=== PATIENT | female | born 1925 | race Hispanic/Latino ===

== ENCOUNTER 2016-07-01 12:56 | Inpatient (IN) | payer MEDICARE ==
[2016-07-01 12:56] VITALS: BMI 31.6
--- NOTE | 2016-07-01 13:19 | ED PDOC ---
Lower Extremity Pain/Injury Time Seen by Provider: 07/01/16 13:19 Chief Complaint (Nursing): Lower Extremity Problem/Injury Chief Complaint (Provider): knee pain History Per: Patient Additional Complaint(s): Patient states that she woke up this morning with pain to right leg and inability to walk. She called ambulance and was brought here for further evaluation. She denies acute fall or trauma today. Patient has history of multiple surgeries to right leg secondary to hip and femur fracture sustained last year. She was living in a rehabilitation facility after surgery but was discharged in September 2015 and has been living at home alone since then. Patient uses a walker at baseline and states this morning she tried to get up out of bed with her walker but was unable to put any weight on her right leg. Patient has had chronic pain since September of 2015 when she returned home after having surgical repair and rehab stay. She states, however, that the pain to right leg has been worse over the past 2 weeks. Patient did not take any medicine for pain relief. She denies any fever or chills. Patient also states she noticed 2 small blood blisters on her leg and she was concerned about possible blood clot. Patient states that Dr. aRmos performed fracture repair last year in this hospital. Past Medical History Reviewed: Historical Data, Nursing Documentation, Vital Signs Vital Signs: Last Vital Signs Temp 97 F L 07/01/16 12:58 Pulse 101 H 07/01/16 12:59 Resp 20 07/01/16 12:59 BP 160/100 H 07/01/16 12:59 Pulse Ox 99 07/01/16 12:59 - Medical History PMH: Arthritis, Bronchitis, CHF, COPD, HTN, Hypercholesterolemia, Peripheral Edema - Surgical History Surgical History: Appendectomy, Cholecystectomy Other surgeries: Right hip and femur fracture repair - Family History Family History: States: No Known Family Hx - Living Arrangements Living Arrangements: With Family - Social History Current smoker - smoking cessation education provided: No Alcohol: None Drugs: Denies - Home Medications Home Medications: Ambulatory Orders Medication Instructions Recorded No Known Home Med 07/01/16 - Allergies Allergies/Adverse Reactions: Allergies Allergy/AdvReac Type Severity Reaction Status Date / Time No Known Allergies Allergy Verified 07/01/16 12:58 Wells Criteria for PE - Wells Criteria for Pulmonary Embolism Clinical Signs and Symptoms of DVT: Yes P.E is #1 Diagnosis, or Equally Likely: No Heart Rate >100: No Immobilization at least 3 days;Surgery previous 4 weeks: No Previous, objectively diagnosed PE or DVT: No Hemoptysis: No Malignancy w/treatment within 6 months, or palliative: No Total Score: 3 Review of Systems ROS Statement: Except As Marked, All Systems Reviewed And Found Negative Constitutional: Negative for: Fever Cardiovascular: Negative for: Chest Pain Respiratory: Negative for: Shortness of Breath, SOB with Exertion Gastrointestinal: Negative for: Nausea, Vomiting Musculoskeletal: Positive for: Other (pain to right leg, cannot bear weight, denies acute fall or trauma) Neurological: Negative for: Headache, Dizziness Physical Exam - Reviewed Nursing Documentation Reviewed: Yes Vital Signs Reviewed: Yes - Physical Exam Skin: Negative for: Rash Eye Exam: Positive for: Normal appearance Cardiovascular/Chest: Positive for: Regular Rate, Rhythm Respiratory: Positive for: Normal Breath Sounds. Negative for: Respiratory Distress Extremity: Positive for: Other (decreased rom of right hip and knee, swelling noted to right femur and calf region, palpable DP pulse, normal distal sensation , chronic edema to left lower extremity) Neurologic/Psych: Positive for: Alert, Oriented - Laboratory Results Result Diagrams: 07/02/16 06:30 07/02/16 06:30 - ECG Interpretation Of Abn EKG: NSR 80 bpm, no acute finding, reviewed by PA and ED attending O2 Sat by Pulse Oximetry: 99 Pulse Ox Interpretation: Normal - Other Rad Doppler right leg X-Ray: Read By Radiologist X-Ray Interpretation: no DVT X-ray right hip, femur, knee, pelvis X-Ray: Interpreted by Me, Viewed By Me X-Ray Interpretation: hardware appears grossly aligned, no acute finding Bedside chest X-Ray: Interpreted by Me, Viewed By Me X-Ray Interpretation: no acute finding CT right leg X-Ray: Read By Radiologist X-Ray Interpretation: see below Medical Decision Making Medical Decision Makin89 year old female with right leg pain Plan: CBC CMP IV insertion PO tylenol X-rays right hip, femur, knee and pelvis Doppler right leg 4:00 pm: Patient's orthopedist is Dr. Ramos. Case discussed with Dr. Ramos who states to order CT of right femur and admit patient. 4:50 pm: BP elevated, patient states she used to take BP meds but has been off of her BP meds since September of 2015. Patient was medicated with 20 mg PO lisinopril and 12.5 mg PO HCTZ. 6:00 pm: PMD is Dr. Anaih Babb, case was discussed with Dr. Mays, family practice resident who will admit patient to Obs med/surg. CT: FINDINGS: Bones/joints: In the region of previously seen acute comminuted displaced fractures in the distal metadiaphysis of the femur, there has been likely additional bone graft placement and additional lateral plate and screw and cerclage wire fixation spanning the fracture. There is some bony callus formation surrounding the fracture site but the fracture still appears nonunited overall. Since the prior exam there is an mild medial displacement of the distal femur relative to the distal tip of the prosthesis. As previously seen, there is moderate to large knee joint effusion. Again there are postoperative changes of ORIF involving the right femur and right hip. No significant change in appearance the more proximal aspect of the right total hip arthroplasty component and surrounding bone changes. Stable diffuse osteopenia. Soft tissues: Unremarkable. IMPRESSION: 1. In the region of previously seen acute comminuted displaced fractures in the distal metadiaphysis of the femur, there has been likely additional bone graft placement and additional lateral plate and screw and cerclage wire fixation spanning the fracture. There is some bony callus formation surrounding the fracture site but the fracture still appears nonunited overall. Since the prior exam there is an mild medial displacement of the distal femur relative to the distal tip of the prosthesis. 2. As previously seen, there is moderate to large knee joint effusion. Disposition - Clinical Impression Clinical Impression: Hip pain, Inability to ambulate due to hip - Patient ED Disposition Is Patient to be Admitted: Yes - Disposition Disposition Time: 19:36 Condition: FAIR - Pt Status Changed To: Hospital Disposition Of: Inpatient - Admit Certification Admit to Inpatient:: After my assessment, the patient will require hospitalization for at least two midnights. This is because of the severity of symptoms shown, intensity of services needed, and/or the medical risk in this patient being treated as an outpatient. - POA Present On Arrival: None Results - Lab Results Lab Results: 07/01/16 07/01/16 07/01/16 15:36 14:19 14:19 WBC 8.3 RBC 4.42 Hgb 12.7 Hct 38.4 MCV 86.8 D MCH 28.6 MCHC 33.0 RDW 14.3 Plt Count 345 MPV 8.2 Neut % (Auto) 63.9 Lymph % (Auto) 24.7 Bacon % (Auto) 9.9 Eos % (Auto) 0.9 Baso % (Auto) 0.6 Neut # 5.3 Lymph # 2.1 Bacon # 0.8 Eos # 0.1 Baso # 0.1 Sodium 140 Potassium 4.4 Chloride 101 Carbon Dioxide 28 Anion Gap 15 BUN 20 H Creatinine 0.8 Est GFR ( Amer) > 60 Est GFR (Non-Af Amer) > 60 Random Glucose 97 Calcium 9.5 Total Bilirubin 0.8 AST 29 ALT 17 Alkaline Phosphatase 74 Total Protein 7.5 Albumin 3.9 Globulin 3.6 Albumin/Globulin Ratio 1.1 Urine Color Yellow Urine Clarity Clear Urine pH 7.0 Ur Specific [place] 1.011 Urine Protein Negative Urine Glucose (UA) Neg Urine Ketones Negative Urine Blood Small Urine Nitrate Negative Urine Bilirubin Negative Urine Urobilinogen 0.2-1.0 Ur Leukocyte Esterase Neg Urine RBC (Auto) 6 H Urine Microscopic WBC 1 Ur Squamous Epith Cells < 1
[2016-07-01 14:53] LABS: BASO # 0.1 K/uL (0.0-0.2); BASO % 0.6 % (0.0-2.0); EOS # 0.1 K/uL (0.0-0.7); EOS % 0.9 % (0.0-4.0); HEMATOCRIT 38.4 % (34.0-47.0); LYMPH # 2.1 K/uL (1.0-4.3); LYMPH % 24.7 % (20.0-40.0); MEAN CELL VOLUME 86.8 fl (81.0-99.0); MEAN CORPUSCULAR HEMOGLOBIN 28.6 pg (27.0-31.0); MEAN PLATELET VOLUME 8.2 fl (7.2-11.7); MONO # 0.8 K/uL (0.0-0.8); MONO % 9.9 % (0.0-10.0); NEUT # 5.3 K/uL (1.8-7.0); NEUT % 63.9 % (50.0-75.0); RED CELL DISTRIBUTION WIDTH 14.3 % (11.5-14.5); WHITE BLOOD COUNT 8.3 K/uL (4.8-10.8)
[2016-07-01 15:13] LABS: ALB/GLOB RATIO 1.1 (1.0-2.1); ALKALINE PHOSPHATASE 74 U/L (38-126); ALT/SGPT 17 U/L (9-52); AST/SGOT 29 U/L (14-36); BILIRUBIN,TOTAL 0.8 mg/dl (0.2-1.3); BLOOD UREA NITROGEN 20 mg/dl (7-17); CALCIUM 9.5 mg/dL (8.4-10.2); CARBON DIOXIDE 28 mmol/L (22-30); CHLORIDE 101 mmol/L (98-107); GFR AFRICAN-AMERICAN > 60; GLUCOSE,RANDOM 97 mg/dL (65-105); POTASSIUM 4.4 MMOL/L (3.6-5.0); SODIUM 140 mmol/l (132-148); TOTAL PROTEIN 7.5 G/DL (6.3-8.2)
--- NOTE | 2016-07-01 15:39 | US ---
PROCEDURE: Right lower extremity venous duplex Doppler. HISTORY: leg pain and swelling COMPARISON: None available. TECHNIQUE: Common femoral, superficial femoral, popliteal and posterior tibial veins were evaluated. Flow was assessed with color Doppler, compressibility, assessment of phasic flow and augmentation response. FINDINGS: COMMON FEMORAL VEIN: Unremarkable. SUPERFICIAL FEMORAL VEIN: Unremarkable. POPLITEAL VEIN: Unremarkable. POSTERIOR TIBIAL VEIN: Unremarkable. OTHER FINDINGS: None. IMPRESSION: No evidence of deep venous thrombosis in the right lower extremity.
[2016-07-01 16:50] LABS: RBC URINE 6 /hpf (0-3); URINE BILIRUBIN NEGATIVE (NEGATIVE); URINE BLOOD SMALL (NEGATIVE); URINE COLOR YELLOW (YELLOW); URINE GLUCOSE (UA) NEG (Normal); URINE KETONE NEGATIVE (NEGATIVE); URINE LEUKOCYTE ESTERASE NEG Leu/uL (Negative); URINE PROTEIN NEGATIVE (NEGATIVE); URINE UROBILINOGEN 0.2-1.0 mg/dL (0.2-1.0); WBC URINE 1 /hpf (0-5)
--- NOTE | 2016-07-01 16:56 | RAD ---
PROCEDURE: Right Hip Radiographs. HISTORY: pain COMPARISON: None. FINDINGS: BONES: Normal. No fractureStatus post bilateral total hip replacement. No evidence of osseous fracture. No evidence of prosthesis loosening. Distal aspect of femoral medullary component is not included in this examination. . JOINTS: As above SOFT TISSUES: Normal. OTHER FINDINGS: None. IMPRESSION: No evidence of acute fracture. Bilateral hip arthroplasty.
--- NOTE | 2016-07-01 17:15 | RAD ---
PROCEDURE: Right femur HISTORY: pain COMPARISON: 08/01/2015 TECHNIQUE: AP and lateral radiographs FINDINGS: There is suspected re- fracture of the distal femoral diaphysis versus nonunion of old fracture with angulation at the fracture site. The patient is status post ORIF of distal femoral fracture. Femoral intramedullary salvador noted. Buttressing plate noted in the distal femur with multiple screws and cerclage wires. No other acute fracture identified. . IMPRESSION: New fracture distal femur versus displacement at the level of the old distal femoral fracture. Extensive orthopedic hardware. . There is angulation at the fracture site and mild displacement.
--- NOTE | 2016-07-01 17:18 | RAD ---
PROCEDURE: Right Knee Radiographs. HISTORY: pain COMPARISON: 08/01/2015 FINDINGS: BONES: Suspected acute fracture at level of the previously repaired distal femoral diaphyseal fracture. This may represent nonunion. Angulation demonstrated on films of the femur on this same date not evident on this examination. Extensive orthopedic hardware. JOINTS: Medial osteoarthritis. JOINT EFFUSION: None. OTHER FINDINGS: None. IMPRESSION: Re- fracture distal femoral diaphysis versus nonunion old fracture. However, on films the right femur of the same date there is demonstration of some angulation and displacement not evident on prior examination.
--- NOTE | 2016-07-01 19:37 | CP.PCM.HP ---
History of Present Illness - History of Present Illness History of Present Illness: CC: right leg pain x 2 weeks 89 y/o F with Hx of HTN presenting with pain to right leg and inability to walk x 1 day secondary to pain. Pain to right leg has been progressively worsening for the past 2 weeks. Has taken aleve for mild pain relief at home. Patient has hx of multiple surgeries to right leg secondary to hip and femur fracture, right femur ORIF 2015 w/ Dr Dooley but has had poor follow up due to lack of proper transport.She was living in [facility] after surgery but was discharged in September 2015 and has been living at home alone since then. States ambulating with a walker for short distances around her house. Admits chronic pain since September of 2015 when she returned home after having surgical repair and rehab stay. Denies acute fall or trauma today, no f/c/n/v/d/cp/sob/ cough/abd pain/hematuria/hematochezia/ no parasthesias/no focal weakness PMD: none at present, used to see Dr. 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: IMPRESSION: 1. In the region of previously seen acute comminuted displaced fractures in the distal metadiaphysis of the femur, there has been likely additional bone graft placement and additional lateral plate and screw and cerclage wire fixation spanning the fracture. There is some bony callus formation surrounding the fracture site but the fracture still appears nonunited overall. Since the prior exam there is an mild medial displacement of the distal femur relative to the distal tip of the prosthesis. 2. As previously seen, there is moderate to large knee joint effusion. Present on Admission - Present on Admission Any Indicators Present on Admission: No Review of Systems - Review of Systems Review of Systems: see hpi Past Patient History - Infectious Disease Hx of Infectious Diseases: None - Past Medical History & Family History Past Medical History?: Yes - Past Social History Alcohol: None Drugs: Denies - CARDIAC Hx Congestive Heart Failure: Yes Hx Hypercholesterolemia: Yes Hx Hypertension: Yes Hx Peripheral Edema: Yes - PULMONARY Hx Bronchitis: Yes Hx Chronic Obstructive Pulmonary Disease (COPD): Yes - NEUROLOGICAL Hx Neurological Disorder: No - HEENT Hx HEENT Problems: No - RENAL Hx Chronic Kidney Disease: No - ENDOCRINE/METABOLIC Hx Hypothyroidism: No - HEMATOLOGICAL/ONCOLOGICAL Hx Blood Disorders: No - INTEGUMENTARY Hx Psoriasis: Yes - MUSCULOSKELETAL/RHEUMATOLOGICAL Hx Arthritis: Yes - GASTROINTESTINAL Hx Gastrointestinal Disorders: No - GENITOURINARY/GYNECOLOGICAL Hx Genitourinary Disorders: No - PSYCHIATRIC Hx Substance Use: No - SURGICAL HISTORY Hx Appendectomy: Yes Hx Cholecystectomy: Yes - ANESTHESIA Hx Anesthesia: Yes Hx Anesthesia Reactions: No Hx Malignant Hyperthermia: No Meds Allergies/Adverse Reactions: Allergies Allergy/AdvReac Type Severity Reaction Status Date / Time No Known Allergies Allergy Verified 07/01/16 12:58 Physical Exam - Constitutional Appears: No Acute Distress - Head Exam Head Exam: ATRAUMATIC - Eye Exam Eye Exam: EOMI Pupil Exam: PERRL - ENT Exam ENT Exam: Mucous Membranes Moist - Neck Exam Neck exam: Positive for: Full Rom. Negative for: Tenderness - Respiratory Exam Respiratory Exam: Clear to Auscultation Bilateral. absent: Rales, Rhonchi, Wheezes, Respiratory Distress - Cardiovascular Exam Cardiovascular Exam: +S1, +S2 - GI/Abdominal Exam GI & Abdominal Exam: Normal Bowel Sounds, Soft. absent: Tenderness - Extremities Exam Extremities exam: Positive for: pedal pulses present. Negative for: calf tenderness Additional comments: right leg: scar on femur from previous surgery, right lateral superfician serosanguinous blisters x 2, mild tenderness to palpation of right femur, right knee, limited ROM of knee joint, no tenderness to palpation of right hip. sensation intact throughtout right leg, ROM intact in right ankle and foot - Neurological Exam Neurological exam: Alert, Oriented x3 - Psychiatric Exam Psychiatric exam: Normal Affect, Normal Mood - Skin Skin Exam: Dry, Normal Color, Warm Results - Vital Signs Recent Vital Signs: Last Vital Signs Temp 97 F L 07/01/16 12:58 Pulse 83 07/01/16 18:05 Resp 20 07/01/16 18:05 BP 193/94 H 07/01/16 18:05 Pulse Ox 99 07/01/16 18:21 - Labs Result Diagrams: 07/01/16 14:19 07/01/16 14:19 Assessment & Plan - Assessment and Plan (Free Text) Plan: 89 y/o F with Hx of HTN presenting with pain to right leg and inability to walk x 1 day secondary to pain. Right leg pain 2/2 to non united femoral fx ED Course: CBC CMP X-rays right hip, femur, knee and pelvis Doppler right leg - WNL CT IMPRESSION: 1. In the region of previously seen acute comminuted displaced fractures in the distal metadiaphysis of the femur, there has been likely additional bone graft placement and additional lateral plate and screw and cerclage wire fixation spanning the fracture. There is some bony callus formation surrounding the fracture site but the fracture still appears nonunited overall. Since the prior exam there is an mild medial displacement of the distal femur relative to the distal tip of the prosthesis. 2. As previously seen, there is moderate to large knee joint effusion. admit to Med/surg pain control: morphine and toradol zofran for nausea Ortho consulted: Dr Dooley, to evaluate pt in AM labs in am: cbc, cmp, coags, type and screen HTN chronic, uncontrolled will restart previous home meds (last taken 2 years ago) 20 mg PO lisinopril and 12.5 mg PO HCTZ Ppx DVT - TEDS for now, patient may receive revision w/ ortho GI - pepcid while on toradol
[2016-07-01] MEDS: Sodium Chloride 0.9% 1,000 ML IV SCH (21:05)
[2016-07-02 06:59] LABS: ALB/GLOB RATIO 1.1 (1.0-2.1); ALKALINE PHOSPHATASE 62 U/L (38-126); ALT/SGPT 20 U/L (9-52); AST/SGOT 18 U/L (14-36); BILIRUBIN,TOTAL 0.9 mg/dl (0.2-1.3); BLOOD UREA NITROGEN 17 mg/dl (7-17); CARBON DIOXIDE 25 mmol/L (22-30); CHLORIDE 104 mmol/L (98-107); GFR AFRICAN-AMERICAN > 60; GLUCOSE,RANDOM 90 mg/dL (65-105); POTASSIUM 4.2 MMOL/L (3.6-5.0); SODIUM 137 mmol/l (132-148); TOTAL PROTEIN 6.6 G/DL (6.3-8.2)
[2016-07-02 07:04] LABS: HEMATOCRIT 36.5 % (34.0-47.0); MEAN CELL VOLUME 86.5 fl (81.0-99.0); MEAN CORPUSCULAR HEMOGLOBIN 28.5 pg (27.0-31.0); RED CELL DISTRIBUTION WIDTH 14.4 % (11.5-14.5); WHITE BLOOD COUNT 7.7 K/uL (4.8-10.8)
[2016-07-02 07:10] LABS: PARTIAL THROMBOPLASTIN TIME 28.3 SECONDS (23.3-32.5)
--- NOTE | 2016-07-02 09:12 | CT ---
PROCEDURE: Lower extremity CT HISTORY: assess femur and right hip, s/p fracture repair COMPARISON: July 01, 2016. Plain film radiographs 08/01/2015 postoperative radiographs right femur 07/04/2015 CT right lower extremity TECHNIQUE: 2.5 mm axial acquisition and display. Coronal and sagittal reconstructions. Dose report (mGy-cm): 900.61 FINDINGS: Non osseous union of previously surgically repaired comminuted distal right femoral fracture. Overall angulation the 2 components of the prosthesis not seen previously. Femoral acetabular components of the prosthesis proximally in satisfactory position. Incompletely visualize suprapatellar. IMPRESSION: Continued non osseous union of distal right 1st femoral fracture. Angulation of major fracture fragments and attached hardware not seen previously. Large suprapatellar effusion. Concordant results (preliminary interpretation) provided by [facility]. Procedure Completed: 17:11. Preliminary ([facility]) Report: Dictated and Authenticated: 18:29. Final Interpretation: 09:10. July 02, 2016.
[2016-07-02] MEDS: Sodium Chloride 0.9% 1,000 ML IV SCH (09:31)
--- NOTE | 2016-07-02 10:01 | RAD ---
HISTORY: Admission. COMPARISON: 09/12/2015. FINDINGS: LUNGS: No active pulmonary disease. PLEURA: No significant pleural effusion identified, no pneumothorax apparent. CARDIOVASCULAR: No radiographic findings to suggest acute or significant cardiovascular disease. OSSEOUS STRUCTURES: Severe degenerative changes right shoulder. Amanda Signed report VISUALIZED UPPER ABDOMEN: Normal. OTHER FINDINGS: None. IMPRESSION: No active disease. No significant interval change compared to the prior examination(s).
[2016-07-02] MEDS ORDERED: Enoxaparin 40 mg Syringe SC ONE (12:26)
[2016-07-02] MEDS: Oxycodone/Acetaminophen 5/325 mg Tab PO PRN (13:38)
--- NOTE | 2016-07-02 14:09 | CARD ---
APPROVED REPORT EKG Measurement Heart [id number] IN [id number] <Conclusion> Normal sinus rhythm Possible inferior infarct, age undetermined Possible anterior infarct, age undetermined Abnormal ECG
--- NOTE | 2016-07-02 17:07 | CP.PCM.PN ---
Subjective - Date & Time of Evaluation Date of Evaluation: 07/02/16 Time of Evaluation: 08:05 - Subjective Subjective: Patient was seen and examined at bedside this morning. Patient reports pain is well controlled with pain medications. Denies nausea, vomiting, chest pain, SOB , or other complains at this evaluation. Objective - Vital Signs/Intake and Output Vital Signs (last 24 hours): Temp Pulse Resp BP Pulse Ox 98.1 F 76 20 166/75 H 98 07/02/16 16:29 07/02/16 16:29 07/02/16 16:29 07/02/16 16:29 07/02/16 16:29 - Medications Medications: Current Medications Hydrochlorothiazide (Microzide) 12.5 mg PO DAILY COUNT INCLUDES THE [facility] Last Admin: 07/02/16 13:17 Dose: 12.5 mg Sodium Chloride (Sodium Chloride 0.9%) 1,000 mls @ 80 mls/hr IV .[id number] COUNT INCLUDES THE [facility] Stop: 07/02/16 20:10 Last Admin: 07/02/16 09:31 Dose: 80 mls/hr Lisinopril (Zestril) 20 mg PO DAILY COUNT INCLUDES THE [facility] Last Admin: 07/02/16 13:16 Dose: 20 mg Morphine Sulfate (Morphine) 2 mg IVP Q4 PRN PRN Reason: Pain, severe (8-10) Ondansetron HCl (Zofran Inj) 4 mg IVP Q6 PRN PRN Reason: Nausea/Vomiting Oxycodone/Acetaminophen (Percocet 5/325 Mg Tab) 1 tab PO Q4 PRN PRN Reason: Pain, moderate (4-7) Stop: 07/05/16 13:22 Last Admin: 07/02/16 13:38 Dose: 1 tab - Labs Labs: 07/02/16 06:30 07/02/16 06:30 PT 10.7 SECONDS (9.6-11.2) 07/02/16 06:30 INR 1.03 (0.92-1.08) 07/02/16 06:30 APTT 28.3 SECONDS (23.3-32.5) 07/02/16 06:30 - Constitutional Appears: Non-toxic, No Acute Distress - Eye Exam Eye Exam: Normal appearance - ENT Exam ENT Exam: Mucous Membranes Moist - Respiratory Exam Respiratory Exam: Clear to Ausculation Bilateral, NORMAL BREATHING PATTERN - Cardiovascular Exam Cardiovascular Exam: REGULAR RHYTHM, +S1, +S2 - GI/Abdominal Exam GI & Abdominal Exam: Soft, Normal Bowel Sounds. absent: Distended, Tenderness - Extremities Exam Extremities Exam: absent: Calf Tenderness Additional comments: Chronic edema of left lower extremity most likely lymphedema. Edema in right lower extremity. DP and PT pulses diminished bilateral. Right leg: scar on femur from previous surgery, , mild tenderness to palpation of right femur, right knee, limited ROM of knee joint, no tenderness to palpation of right hip. sensation intact throughtout right leg, ROM intact in right ankle and foot - Neurological Exam Neurological Exam: Alert, Awake, Oriented x3 - Skin Skin Exam: Dry, Intact, Normal Color - Additional Findings Additional findings: Mild tender to palpation of right thigh. Assessment and Plan - Assessment and Plan (Free Text) Assessment: 89 y/o F with Hx of HTN presenting with pain to right leg and inability to walk x 1 day secondary to pain, with mild medial displacement of the distal right femur on extremity CT, awaiting for surgical intervention by Ortho. . Plan: Right leg pain most likely secondary to new fracture vs displacement at level of old fracture -Orthopedic on board, Dr. Dooley, waiting for recommendations -Cardiology consulted appreciated for OR clearance -Patient is cleared from Medical standpoint to go to OR. -C/w pain management with Morphine and Percocet -CBC: H/H : stable on 12/36.5, WBC: WNL -CMP: WNL -Coagulation panel WNL -Heart healthy diet for dinner today -NPO after midnight for possible surgical intervention tomorrow -Lower extremity CT: Continued non osseous union of distal right 1st femoral fracture. Angulation of major fracture fragments and attached hardware not seen previously. Large suprapatellar effusion. -Femur X ray showed New fracture distal femur versus displacement at the level of the old distal femoral fracture. Extensive orthopedic hardware. . There is angulation at the fracture site and mild displacement. -Hip/Pelvis x dario showed : No evidence of acute fracture. Bilateral hip arthroplasty. -Doppler lower extremity showed no evidence of deep venous thrombosis in the right lower extremity. Uncontrolled Essential hypertension -Chronic, asymptomatic -Patient reports poor medication adherence -will restart previous home meds (last taken 2 years ago) - lisinopril 20 mg PO daily - HCTZ 12.5 mg PO daily -Heart healthy diet for dinner today -Continue monitoring -Consider written prescription for antihypertensives DVT prophylaxis -Lovenox 40 mg SC once today -Hold for tomorrow for possible surgical intervention
--- NOTE | 2016-07-02 17:21 | CP.PCM.PCO ---
Assessment/Plan - Assessment and Plan (Free Text) Assessment: I saw and evaluated the patient. I discussed the case with the resident and agree with the findings and plan as documented in the resident's note. Pt says she is going to OR in am . [facility].
--- NOTE | 2016-07-02 17:42 | CP.PCM.CON ---
History of Present Illness - History of Present Illness History of Present Illness: ID: 89 yo female qwell known to my practice CC: pain distal 1/3 R femur with evidence of change in overall limb alignment HPI- Pt well known to my practice- s/p ORIF complex pathologic(osteopenia) distal femur fx; Pt prenets with pain and restricted ROM R knee, with pain distal femur and evidence of deformity Pt admitted thru ER with dx of new fx distal 1/3 femur vs non union, incomplete healing distal 1/3 femur fx Past Patient History - Infectious Disease Hx of Infectious Diseases: None - Past Medical History & Family History Past Medical History?: Yes - Past Social History Alcohol: None Drugs: Denies - CARDIAC Hx Congestive Heart Failure: Yes Hx Hypercholesterolemia: Yes Hx Hypertension: Yes Hx Peripheral Edema: Yes - PULMONARY Hx Bronchitis: Yes Hx Chronic Obstructive Pulmonary Disease (COPD): Yes - NEUROLOGICAL Hx Neurological Disorder: No - HEENT Hx HEENT Problems: Yes Hx Deafness: Yes (slightly [place]) Other/Comment: cataract sx ou - RENAL Hx Chronic Kidney Disease: No - ENDOCRINE/METABOLIC Hx Hypothyroidism: No - HEMATOLOGICAL/ONCOLOGICAL Hx AIDS: No Hx Human Immunodeficiency Virus (HIV): No - INTEGUMENTARY Hx Psoriasis: Yes - MUSCULOSKELETAL/RHEUMATOLOGICAL Hx Arthritis: Yes - GASTROINTESTINAL Hx Gastrointestinal Disorders: No - GENITOURINARY/GYNECOLOGICAL Hx Genitourinary Disorders: No - PSYCHIATRIC Hx Substance Use: No - SURGICAL HISTORY Hx Appendectomy: Yes Hx Cholecystectomy: Yes - ANESTHESIA Hx Anesthesia: Yes Hx Anesthesia Reactions: No Hx Malignant Hyperthermia: No Meds Allergies/Adverse Reactions: Allergies Allergy/AdvReac Type Severity Reaction Status Date / Time No Known Allergies Allergy Verified 07/01/16 12:58 - Medications Medications: Current Medications Hydrochlorothiazide (Microzide) 12.5 mg PO DAILY [facility] Last Admin: 07/02/16 13:17 Dose: 12.5 mg Lisinopril (Zestril) 20 mg PO DAILY [facility] Last Admin: 07/02/16 13:16 Dose: 20 mg Morphine Sulfate (Morphine) 2 mg IVP Q4 PRN PRN Reason: Pain, severe (8-10) Ondansetron HCl (Zofran Inj) 4 mg IVP Q6 PRN PRN Reason: Nausea/Vomiting Oxycodone/Acetaminophen (Percocet 5/325 Mg Tab) 1 tab PO Q4 PRN PRN Reason: Pain, moderate (4-7) Stop: 07/05/16 13:22 Last Admin: 07/02/16 13:38 Dose: 1 tab Physical Exam - Neck Exam Neck exam: Positive for: Normal Inspection - Additional Findings Additional findings: Musculoskeltal Exam; stance/gait- defrred pt without immobilization of R lower ext pt requesting pain meds at time of encounter N/V intact + tenderness to palpation + swelling Results - Vital Signs Recent Vital Signs: Last Vital Signs Temp 98.1 F 07/02/16 16:29 Pulse 76 07/02/16 16:29 Resp 20 07/02/16 16:29 BP 166/75 H 07/02/16 16:29 Pulse Ox 98 07/02/16 16:29 - Labs Result Diagrams: 07/02/16 06:30 07/02/16 06:30 Labs: Laboratory Results - last 24 hr 07/02/16 07/02/16 07/02/16 06:30 06:30 06:30 WBC 7.7 RBC 4.22 Hgb 12.0 Hct 36.5 MCV 86.5 MCH 28.5 MCHC 33.0 RDW 14.4 Plt Count 324 PT 10.7 INR 1.03 APTT 28.3 Sodium 137 Potassium 4.2 Chloride 104 Carbon Dioxide 25 Anion Gap 13 BUN 17 Creatinine 0.7 Est GFR ( Amer) > 60 Est GFR (Non-Af Amer) > 60 Random Glucose 90 Calcium 9.0 Total Bilirubin 0.9 AST 18 ALT 20 Alkaline Phosphatase 62 Total Protein 6.6 Albumin 3.4 L Globulin 3.2 Albumin/Globulin Ratio 1.1 Blood Type Antibody Screen BBK History Checked 07/02/16 07:10 WBC RBC Hgb Hct MCV MCH MCHC RDW Plt Count PT INR APTT Sodium Potassium Chloride Carbon Dioxide Anion Gap BUN Creatinine Est GFR ( Amer) Est GFR (Non-Af Amer) Random Glucose Calcium Total Bilirubin AST ALT Alkaline Phosphatase Total Protein Albumin Globulin Albumin/Globulin Ratio Blood Type A POSITIVE Antibody Screen Negative BBK History Checked Patient has bt - Impressions Impression: Xrays- reveal evidence of comminuted /angulated distal 1/4 f3mur fx s/p ORIF vs Non union distal 1/[address] scan - reviewed and is coinfirmatory Assessment & Plan - Assessment and Plan (Free Text) Assessment: A- comminuted distal 1/3 femur fx with mild angulation vs Non union distal 1/3 femur fx P- situastion discused with granddaughter Daniella- possibility of ORIF and bone grafting discussed/ pt and her granddaughter considering same Orther option is bracing and essentially benign neglect
--- NOTE | 2016-07-03 10:31 | CP.PCM.CON ---
History of Present Illness - History of Present Illness History of Present Illness: 89 y/o F with Hx of HTN presenting with pain to right leg and inability to walk x 1 day secondary to pain. Pain to right leg has been progressively worsening for the past 2 weeks. Has taken aleve for mild pain relief at home. Patient has hx of multiple surgeries to right leg secondary to hip and femur fracture, right femur ORIF 2015 w/ Dr Dooley but has had poor follow up due to lack of proper transport. She was living in [facility] after surgery but was discharged in September 2015 and has been living at home alone since then. States ambulating with a walker for short distances around her house. Admits chronic pain since September of 2015 when she returned home after having surgical repair and rehab stay. Denies acute fall or trauma today, no f/c/n/v/d/cp/sob/cough/abd pain/hematuria /hematochezia/ no parasthesias/no focal weakness Pt is scheduled for surgery on right femur today She denies any PMH of cardiac disease other than Hypertension PMH: HTN, arthritis, hyperliidema, "blood clot on left leg" 30 years ago , SH: b/l hip replacement, right femur ORIF, hysterectomy,cholecystectomy, EKG: normal Labs : WNL Past Patient History - Infectious Disease Hx of Infectious Diseases: None - Past Medical History & Family History Past Medical History?: Yes - Past Social History Alcohol: None Drugs: Denies - CARDIAC Hx Congestive Heart Failure: No Hx Hypercholesterolemia: Yes Hx Hypertension: Yes Hx Peripheral Edema: Yes - PULMONARY Hx Bronchitis: No Hx Chronic Obstructive Pulmonary Disease (COPD): No - NEUROLOGICAL Hx Neurological Disorder: No - HEENT Hx HEENT Problems: Yes Hx Deafness: Yes (slightly [place]) Other/Comment: cataract sx ou - RENAL Hx Chronic Kidney Disease: No - ENDOCRINE/METABOLIC Hx Hypothyroidism: No - HEMATOLOGICAL/ONCOLOGICAL Hx AIDS: No Hx Human Immunodeficiency Virus (HIV): No - INTEGUMENTARY Hx Psoriasis: Yes - MUSCULOSKELETAL/RHEUMATOLOGICAL Hx Arthritis: Yes - GASTROINTESTINAL Hx Gastrointestinal Disorders: No - GENITOURINARY/GYNECOLOGICAL Hx Genitourinary Disorders: No - PSYCHIATRIC Hx Substance Use: No - SURGICAL HISTORY Hx Appendectomy: Yes Hx Cholecystectomy: Yes - ANESTHESIA Hx Anesthesia: Yes Hx Anesthesia Reactions: No Hx Malignant Hyperthermia: No Meds Allergies/Adverse Reactions: Allergies Allergy/AdvReac Type Severity Reaction Status Date / Time No Known Allergies Allergy Verified 07/01/16 12:58 - Medications Medications: Current Medications Hydrochlorothiazide (Microzide) 12.5 mg PO DAILY [facility] Last Admin: 07/03/16 08:30 Dose: 12.5 mg Lisinopril (Zestril) 20 mg PO DAILY [facility] Last Admin: 07/03/16 10:22 Dose: 20 mg Morphine Sulfate (Morphine) 2 mg IVP Q4 PRN PRN Reason: Pain, severe (8-10) Last Admin: 07/03/16 09:03 Dose: 2 mg Ondansetron HCl (Zofran Inj) 4 mg IVP Q6 PRN PRN Reason: Nausea/Vomiting Oxycodone/Acetaminophen (Percocet 5/325 Mg Tab) 1 tab PO Q4 PRN PRN Reason: Pain, moderate (4-7) Stop: 07/05/16 13:22 Last Admin: 07/02/16 13:38 Dose: 1 tab Physical Exam - Respiratory Exam Respiratory Exam: NORMAL BREATHING PATTERN - Cardiovascular Exam Cardiovascular Exam: REGULAR RHYTHM Results - Vital Signs Recent Vital Signs: Last Vital Signs Temp 97.8 F 07/03/16 08:05 Pulse 82 07/03/16 10:22 Resp 19 07/03/16 08:05 BP 163/79 H 07/03/16 10:22 Pulse Ox 98 07/03/16 08:05 - Labs Result Diagrams: 07/02/16 06:30 07/02/16 06:30 Assessment & Plan (1) Right femoral shaft fracture Assessment and Plan: The patient is cleared for surgery Status: Acute (2) Hyperlipidemia Status: Chronic (3) Hypertension Assessment and Plan: controlled with lisinopril as an out patient Status: Chronic
[2016-07-03] MEDS: Sodium Chloride 0.9% 500 ML IV SCH ×3 (12:49→20:05)
--- NOTE | 2016-07-03 16:19 | CP.PCM.PCO ---
Additional Comments - Additional Comments Additional Comments: 89 y/o F with Hx of HTN and history of ORIF of complex pathologic (osteoopenia) right distal femur fx presents with right leg pain and found to have on CT of the lower extremity of a non osseous union of distal right 1st femoral fracture. Angulation of major fracture fragments. Spoke to Dr. Ramos, orthopedic, who has arrange for out patient surgery on Jul 10 2016. Belen, Dr. Ramos's staff, is aware, confirm the date, and will contact patient for further arrangement. Pt and her son (Gautam) and her daughter in law (Madison) was inform of the surgery date on July 10 and contact information to Dr. Ramos staff was given ([phone]) to Madison. Gautam and Madison contact information: [phone] Plan: Pt is placed on heart health diet and awaiting PT evaluation.
--- NOTE | 2016-07-03 19:09 | CP.PCM.PN ---
Subjective - Date & Time of Evaluation Date of Evaluation: 07/03/16 Time of Evaluation: 07:05 - Subjective Subjective: Patient was seen and examined at bedside this morning. Patient denies pain at this evaluation. Patient had an uneventful night. Denies chest pain, SOB, nausea , vomiting, abdominal pain or other complains at this morning assessment. Objective - Vital Signs/Intake and Output Vital Signs (last 24 hours): Temp Pulse Resp BP Pulse Ox 98.4 F 79 18 159/66 H 96 07/03/16 16:45 07/03/16 16:45 07/03/16 16:45 07/03/16 16:45 07/03/16 16:45 - Medications Medications: Current Medications Hydrochlorothiazide (Microzide) 12.5 mg PO DAILY [facility] Last Admin: 07/03/16 08:30 Dose: 12.5 mg Sodium Chloride (Sodium Chloride 0.9%) 500 mls @ 125 mls/hr IV .Q4H [facility] Last Admin: 07/03/16 16:39 Dose: Not Given Lisinopril (Zestril) 20 mg PO DAILY [facility] Last Admin: 07/03/16 10:22 Dose: 20 mg Morphine Sulfate (Morphine) 2 mg IVP Q4 PRN PRN Reason: Pain, severe (8-10) Last Admin: 07/03/16 09:03 Dose: 2 mg Ondansetron HCl (Zofran Inj) 4 mg IVP Q6 PRN PRN Reason: Nausea/Vomiting Oxycodone/Acetaminophen (Percocet 5/325 Mg Tab) 1 tab PO Q4 PRN PRN Reason: Pain, moderate (4-7) Stop: 07/05/16 13:22 Last Admin: 07/02/16 13:38 Dose: 1 tab - Labs Labs: 07/02/16 06:30 07/02/16 06:30 PT 10.7 SECONDS (9.6-11.2) 07/02/16 06:30 INR 1.03 (0.92-1.08) 07/02/16 06:30 APTT 28.3 SECONDS (23.3-32.5) 07/02/16 06:30 - Constitutional Appears: Non-toxic, No Acute Distress - ENT Exam ENT Exam: Mucous Membranes Moist - Respiratory Exam Respiratory Exam: Clear to Ausculation Bilateral, NORMAL BREATHING PATTERN - Cardiovascular Exam Cardiovascular Exam: REGULAR RHYTHM, +S1, +S2 - GI/Abdominal Exam GI & Abdominal Exam: Soft, Normal Bowel Sounds. absent: Distended, Tenderness - Extremities Exam Extremities Exam: absent: Calf Tenderness Additional comments: Chronic edema of left lower extremity most likely lymphedema. Edema in right lower extremity. DP and PT pulses diminished bilateral. Right leg: scar on femur from previous surgery, , mild tenderness to palpation of right femur, right knee, limited ROM of knee joint, no tenderness to palpation of right hip. sensation intact throughtout right leg, ROM intact in right ankle and foot - Neurological Exam Neurological Exam: Alert, Awake, Oriented x3 - Skin Skin Exam: Dry, Intact, Normal Color Assessment and Plan - Assessment and Plan (Free Text) Assessment: 89 y/o F with Hx of HTN presenting with pain to right leg and inability to walk x 1 day secondary to pain, with mild medial displacement of the distal right femur on extremity CT, awaiting for surgical intervention by Ortho. . Plan: Right leg pain most likely secondary to new fracture vs displacement at level of old fracture -Orthopedic on board, Dr. Dooley, waiting for recommendations -Cardiology consulted appreciated for OR clearance -Patient is cleared from Medical standpoint to go to OR. -C/w pain management with Morphine and Percocet -CBC: H/H : stable on 12/36.5, WBC: WNL -CMP: WNL -Coagulation panel WNL -Heart healthy diet for dinner today -NPO after midnight for possible surgical intervention -Lower extremity CT: Continued non osseous union of distal right 1st femoral fracture. Angulation of major fracture fragments and attached hardware not seen previously. Large suprapatellar effusion. -Femur X ray showed New fracture distal femur versus displacement at the level of the old distal femoral fracture. Extensive orthopedic hardware. . There is angulation at the fracture site and mild displacement. -Hip/Pelvis x dario showed : No evidence of acute fracture. Bilateral hip arthroplasty. -Doppler lower extremity showed no evidence of deep venous thrombosis in the right lower extremity. Uncontrolled Essential hypertension -Chronic, asymptomatic -Patient reports poor medication adherence -will restart previous home meds (last taken 2 years ago) - lisinopril 20 mg PO daily - HCTZ 12.5 mg PO daily -Heart healthy diet for dinner today -Continue monitoring -Consider written prescription for antihypertensives DVT prophylaxis -Held Lovenox 40 mg SC -Patient for possible OR today
[2016-07-04] MEDS: Sodium Chloride 0.9% 500 ML IV SCH ×2 (00:40→11:54)
[2016-07-04 08:32] VITALS: BP 139/74; RESP 20; TEMP 97.9; O2SAT 98
[2016-07-04 10:04] VITALS: PULSE 72
--- NOTE | 2016-07-04 10:50 | PQF GENQUE ---
This form is a permanent part of the medical record 07/04/16 Dr. Chris Weber, Please clarify if this patient has a history of CHF or not. If yes please clarify the TYPE. In the H&P under the PMH template there is documentation of YES next to CHF. Medications include Zestril and HCTZ Clarification of your documentation is requested to better reflect the severity of illness and intensity of treatment of your patient. PHYSICIAN'S RESPONSE Based on your medical judgment of the clinical indicators outlined above please clarify the following: [] Practitioner response [] If unable to determine, please check the box, sign and date. Present On Admission (POA) Indicator: [] Present at the time of admission [] Not present at the time of admission [] Clinically Undetermined In responding to this query, please exercise your independent professional judgment. The fact that a question is asked does not imply that any particular answer is desired or expected. Thank you for your clarification on this documentation. If you have any questions please call:[phone] * Thank you, Nataly Thao RN [facility]
[2016-07-04] MEDS: Oxycodone/Acetaminophen 5/325 mg Tab PO PRN (10:56)
--- NOTE | 2016-07-04 16:17 | CP.PCM.DIS ---
Provider - Provider Date of Admission: 07/01/16 18:30 Attending physician: Izabella Padilla MD Time Spent in preparation of Discharge (in minutes): 30 Diagnosis - Discharge Diagnosis (1) Hypertension Status: Chronic Priority: Medium Comment: Controlled with home medications. (2) Femur fracture, right Status: Acute Priority: High Comment: Stable. Scheduled surgery by Dr. Ramos, Orthopedic on June,. Hospital Course - Lab Results Lab Results: Most Recent Lab Values WBC 7.7 K/uL (4.8-10.8) 07/02/16 06:30 RBC 4.22 Mil/uL (3.80-5.20) 07/02/16 06:30 Hgb 12.0 g/dL (12.0-16.0) 07/02/16 06:30 Hct 36.5 % (34.0-47.0) 07/02/16 06:30 MCV 86.5 fl (81.0-99.0) 07/02/16 06:30 MCH 28.5 pg (27.0-31.0) 07/02/16 06:30 MCHC 33.0 g/dL (33.0-37.0) 07/02/16 06:30 RDW 14.4 % (11.5-14.5) 07/02/16 06:30 Plt Count 324 K/uL (130-400) 07/02/16 06:30 MPV 8.2 fl (7.2-11.7) 07/01/16 14:19 Neut % (Auto) 63.9 % (50.0-75.0) 07/01/16 14:19 Lymph % (Auto) 24.7 % (20.0-40.0) 07/01/16 14:19 [place] % (Auto) 9.9 % (0.0-10.0) 07/01/16 14:19 Eos % (Auto) 0.9 % (0.0-4.0) 07/01/16 14:19 Baso % (Auto) 0.6 % (0.0-2.0) 07/01/16 14:19 Neut # 5.3 K/uL (1.8-7.0) 07/01/16 14:19 Lymph # 2.1 K/uL (1.0-4.3) 07/01/16 14:19 [place] # 0.8 K/uL (0.0-0.8) 07/01/16 14:19 Eos # 0.1 K/uL (0.0-0.7) 07/01/16 14:19 Baso # 0.1 K/uL (0.0-0.2) 07/01/16 14:19 PT 10.7 SECONDS (9.6-11.2) 07/02/16 06:30 INR 1.03 (0.92-1.08) 07/02/16 06:30 APTT 28.3 SECONDS (23.3-32.5) 07/02/16 06:30 Sodium 137 mmol/l (132-148) 07/02/16 06:30 Potassium 4.2 MMOL/L (3.6-5.0) 07/02/16 06:30 Chloride 104 mmol/L (98-107) 07/02/16 06:30 Carbon Dioxide 25 mmol/L (22-30) 07/02/16 06:30 Anion Gap 13 (10-20) 07/02/16 06:30 BUN 17 mg/dl (7-17) 07/02/16 06:30 Creatinine 0.7 mg/dL (0.7-1.2) 07/02/16 06:30 Est GFR ( Amer) > 60 07/02/16 06:30 Est GFR (Non-Af Amer) > 60 07/02/16 06:30 Random Glucose 90 mg/dL (65-105) 07/02/16 06:30 Calcium 9.0 mg/dL (8.4-10.2) 07/02/16 06:30 Total Bilirubin 0.9 mg/dl (0.2-1.3) 07/02/16 06:30 AST 18 U/L (14-36) 07/02/16 06:30 ALT 20 U/L (9-52) 07/02/16 06:30 Alkaline Phosphatase 62 U/L (38-126) 07/02/16 06:30 Total Protein 6.6 G/DL (6.3-8.2) 07/02/16 06:30 Albumin 3.4 g/dL (3.5-5.0) L 07/02/16 06:30 Globulin 3.2 gm/dL (2.2-3.9) 07/02/16 06:30 Albumin/Globulin Ratio 1.1 (1.0-2.1) 07/02/16 06:30 Urine Color Yellow (YELLOW) 07/01/16 15:36 Urine Clarity Clear (Clear) 07/01/16 15:36 Urine pH 7.0 (5.0-8.0) 07/01/16 15:36 Ur Specific [place] 1.011 (1.003-1.030) 07/01/16 15:36 Urine Protein Negative mg/dL (NEGATIVE) 07/01/16 15:36 Urine Glucose (UA) Neg mg/dL (Normal) 07/01/16 15:36 Urine Ketones Negative mg/dL (NEGATIVE) 07/01/16 15:36 Urine Blood Small (NEGATIVE) 07/01/16 15:36 Urine Nitrate Negative (NEGATIVE) 07/01/16 15:36 Urine Bilirubin Negative (NEGATIVE) 07/01/16 15:36 Urine Urobilinogen 0.2-1.0 mg/dL (0.2-1.0) 07/01/16 15:36 Ur Leukocyte Esterase Neg Jeanine/uL (Negative) 07/01/16 15:36 Urine RBC (Auto) 6 /hpf (0-3) H 07/01/16 15:36 Urine Microscopic WBC 1 /hpf (0-5) 07/01/16 15:36 Ur Squamous Epith Cells < 1 /hpf (0-5) 07/01/16 15:36 Blood Type A POSITIVE 07/02/16 07:10 Antibody Screen Negative 07/02/16 07:10 BBK History Checked Patient has bt 07/02/16 07:10 - Hospital Course Hospital Course: This is a 89 y/o Female with Hx of HTN, Bilateral Hip replacement, and right femur fractore s/o ORIF on 2015 who presented to ED complaining of right leg pain and inability to walk for one day secondary to pain admitted with diagnosis of new fracture distal 1/3 femur versus non union, incomplete healing distal 1/3 femur fracture and possible surgical repair. During admission patient's current clinical condition was managed with pain control medications and her home antihypertensives were reassumed. CBC, CMP and coagulation panel were WNL.Dr. Ramos, Orthopedic, was consulted, and who arranged for surgery on Jul 10 2016 with patient's consent. Patient was evaluated by physical therapist and recommendations for TCU rehabilitation were given. Patient was seen and examined at bedside this morning. Patient reports pain is well control with pain medications, and denies any complains at this evaluation. Patient stable to be transfer to TCU on home medications and pain management. TCU medications: Same medication regimen as when in [facility] - Date & Time of H&P Date of H&P: 07/01/16 Time of H&P: 19:15 Discharge Exam - Eye Exam Eye Exam: Normal appearance - ENT Exam ENT Exam: Mucous Membranes Moist - Respiratory Exam Respiratory Exam: Clear to PA & Lateral, NORMAL BREATHING PATTERN - Cardiovascular Exam Cardiovascular Exam: REGULAR RHYTHM, +S1, +S2 - GI/Abdominal Exam GI & Abdominal Exam: Normal Bowel Sounds, Soft. absent: Distended, Rigid, Tenderness - Extremities Exam Additional comments: Chronic edema of left lower extremity most likely lymphedema. Edema in right lower extremity. DP and PT pulses diminished bilateral. Right leg: scar on femur from previous surgery, , mild tenderness to palpation of right femur, right knee, limited ROM of knee joint, no tenderness to palpation of right hip. sensation intact throughtout right leg, ROM intact in right ankle and foot - Neurological Exam Neurological exam: Alert, Oriented x3 - Psychiatric Exam Psychiatric exam: Normal Affect, Normal Mood - Skin Skin Exam: Dry, Intact, Normal Color Discharge Plan - Discharge Medications Prescriptions: Sennosides A and B [Senokot Tab] 8.6 mg PO HS #30 tab - Follow Up Plan Condition: STABLE Disposition: REHAB FACILITY/REHAB UNIT Instructions: Hip Fracture (GEN), Hip Pain (GEN)
== END 2016-07-04 15:45 | DRG 566 ==
LOC: H.ER 12:56 → H.ERHOLD 18:30 → H.MEDSURG1 21:50
PROVIDERS: ADMIT Family Medicine Geriatric Medicine; ATTEND Family Medicine Geriatric Medicine
DX: M84.451K Pathological fracture, right femur, subsequent encounter for fracture with nonunion (principal); J44.9 Chronic obstructive pulmonary disease, unspecified; E78.00 Pure hypercholesterolemia, unspecified; I10 Essential (primary) hypertension; E78.5 Hyperlipidemia, unspecified; Z90.49 Acquired absence of other specified parts of digestive tract; Z96.643 Presence of artificial hip joint, bilateral; X58.XXXA Exposure to other specified factors, initial encounter; Y93.9 Activity, unspecified; Y92.9 Unspecified place or not applicable; Y99.9 Unspecified external cause status; G89.29 Other chronic pain

== ENCOUNTER 2016-07-04 14:11 | Inpatient (IN) | payer OTHER ==
[2016-07-04 15:21] VITALS: BMI 29.2
[2016-07-04] MEDS ORDERED: Oxycodone/Acetaminophen 5/325 mg Tab PO PRN (15:38)
[2016-07-04 16:51] VITALS: RESP 20
--- NOTE | 2016-07-05 13:45 | CP.PCM.HP ---
History of Present Illness - History of Present Illness History of Present Illness: CC: 89 y/o F with Hx of HTN presenting with pain to right leg and inability to walk x 1 day secondary to pain. Pain to right leg has been progressively worsening for the past 2 weeks. Has taken aleve for mild pain relief at home. Patient has hx of multiple surgeries to right leg secondary to hip and femur fracture, right femur ORIF 2015 w/ Dr Dooley but has had poor follow up due to lack of proper transport. She was living in [facility] after surgery but was discharged in September 2015 and has been living at home alone since then. States ambulating with a walker for short distances around her house. Admits chronic pain since September of 2015 when she returned home after having surgical repair and rehab stay. Denies acute fall or trauma today, no f/c/n/v/d/cp/sob/cough/ abd pain/hematuria/hematochezia/ no parasthesias/no focal weakness. 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 Angulation of major fracture fragments. and admitted to med/surg with orthopedic consult Dr. Ramos. Spoke to Dr. Ramos, orthopedic, who has arrange for out patient surgery on Jul 10 2016. Belen, Dr. Ramos's staff, is aware, confirm the date, and will contact patient for further arrangement. Pt and her son (Gautam) and her daughter in law (Madison) was inform of the surgery date on July 10 [address] contact information to Dr. Ramos staff was given ([phone]) to Madison. Currently transfer to TCU for acute rehab. Awaiting OR. PMD: none at present, used to see Dr. 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, no transportation Denies tobacco, alcohol, and illicit drug use Son and daughter in law Shaina: [phone] Present on Admission - Present on Admission Any Indicators Present on Admission: No Review of Systems - Review of Systems Review of Systems: as per hpi Past Patient History - Infectious Disease Hx of Infectious Diseases: None - Past Medical History & Family History Past Medical History?: Yes - Past Social History Smoking Status: Former Smoker - CARDIAC Hx Congestive Heart Failure: No Hx Hypercholesterolemia: Yes Hx Hypertension: Yes Hx Peripheral Edema: Yes - PULMONARY Hx Bronchitis: No Hx Chronic Obstructive Pulmonary Disease (COPD): No - NEUROLOGICAL Hx Neurological Disorder: No - HEENT Hx HEENT Problems: Yes Hx Deafness: Yes (slightly ramona) Other/Comment: cataract sx ou - RENAL Hx Chronic Kidney Disease: No - ENDOCRINE/METABOLIC Hx Hypothyroidism: No - HEMATOLOGICAL/ONCOLOGICAL Hx AIDS: No Hx Human Immunodeficiency Virus (HIV): No - INTEGUMENTARY Hx Psoriasis: Yes - MUSCULOSKELETAL/RHEUMATOLOGICAL Hx Falls: No - GASTROINTESTINAL Hx Gastrointestinal Disorders: No - GENITOURINARY/GYNECOLOGICAL Hx Genitourinary Disorders: No - PSYCHIATRIC Hx Substance Use: No - SURGICAL HISTORY Hx Appendectomy: Yes Hx Cholecystectomy: Yes Hx Hysterectomy: Yes - ANESTHESIA Hx Anesthesia: Yes Hx Anesthesia Reactions: No Hx Malignant Hyperthermia: No Has any member of the family had a problem w/ anesthesia?: No Meds Allergies/Adverse Reactions: Allergies Allergy/AdvReac Type Severity Reaction Status Date / Time No Known Allergies Allergy Verified 07/01/16 12:58 Physical Exam - Constitutional Appears: No Acute Distress - Head Exam Head Exam: NORMAL INSPECTION - Eye Exam Eye Exam: EOMI, Normal appearance - ENT Exam ENT Exam: Mucous Membranes Moist - Neck Exam Neck exam: Positive for: Full Rom - Respiratory Exam Respiratory Exam: Clear to Auscultation Bilateral - Cardiovascular Exam Cardiovascular Exam: REGULAR RHYTHM, +S1, +S2 - GI/Abdominal Exam GI & Abdominal Exam: Normal Bowel Sounds, Soft. absent: Distended, Guarding, Rigid, Tenderness - Extremities Exam Extremities exam: Positive for: normal capillary refill. Negative for: calf tenderness, joint swelling Additional comments: right lower extermity decrease in motor and strenth secondary to pain. healing scar noted on upper lateral right thigh. no swelling/redness of the right thigh. - Neurological Exam Neurological exam: Alert, CN II-XII Intact, Oriented x3 - Psychiatric Exam Psychiatric exam: Normal Affect, Normal Mood - Skin Skin Exam: Normal Color, Warm Additional comments: healing scar on right later upper thigh Results - Vital Signs Recent Vital Signs: Last Vital Signs Temp 97.3 F L 07/05/16 08:11 Pulse 76 07/05/16 08:45 Resp 20 07/05/16 08:11 BP 156/77 H 07/05/16 08:45 Pulse Ox 99 07/05/16 08:11 Assessment & Plan - Assessment and Plan (Free Text) Assessment: 89 y/o F with Hx of HTN presenting with pain to right leg and inability to walk x 1 day secondary to pain, with mild medial displacement of the distal right femur on extremity CT, awaiting for surgical intervention by Ortho. Plan: Right leg pain most likely secondary to new fracture vs displacement at level of old fracture -Orthopedic on board, Dr. 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 Angulation of major fracture fragments and attached hardware not seen previously. Large suprapatellar effusion. -Femur X ray showed New fracture distal femur versus displacement at the level of the old distal femoral fracture. Extensive orthopedic hardware. . There is angulation at the fracture site and mild displacement. -Hip/Pelvis x dario showed : No evidence of acute fracture. Bilateral hip arthroplasty. -Doppler lower extremity showed no evidence of deep venous thrombosis in the right lower extremity. -continue with physical therapy and pain medication tylenol and perocet 1 tab po q6 prn Uncontrolled Essential hypertension -Chronic, asymptomatic -c/w lisinopril 20 mg PO daily and HCTZ 12.5 mg PO daily -Heart healthy diet for dinner today -Continue monitoring DVT prophylaxis -scd Decision To Admit - . Bed Request Type: Transitional Care Unit Admitting Physician: Izabella Padilla
[2016-07-05] MEDS ORDERED: Oxycodone/Acetaminophen 5/325 mg Tab PO PRN (13:54)
--- NOTE | 2016-07-07 11:49 | CP.PCM.CON ---
History of Present Illness - History of Present Illness History of Present Illness: Pre Op Clearance 89 y/o F with Hx of HTN presenting with pain to right leg and inability to walk x 1 day secondary to pain. Pain to right leg has been progressively worsening for the past 2 weeks. Has taken aleve for mild pain relief at home. Patient has hx of multiple surgeries to right leg secondary to hip and femur fracture, right femur ORIF 2015 w/ Dr Dooley but has had poor follow up due to lack of proper transport. She was living in [facility] after surgery but was discharged in September 2015 and has been living at home alone since then. States ambulating with a walker for short distances around her house. Admits chronic pain since September of 2015 when she returned home after having surgical repair and rehab stay. Denies acute fall or trauma today, no f/c/n/v/d/cp/sob/cough/abd pain/hematuria /hematochezia/ no parasthesias/no focal weakness Pt is scheduled for surgery on right femur 07/10 She denies any PMH of cardiac disease other than Hypertension PMH: HTN, arthritis, hyperliidema, "blood clot on left leg" 30 years ago , SH: b/l hip replacement, right femur ORIF, hysterectomy,cholecystectomy, EKG: normal Labs : WNL Past Patient History - Infectious Disease Hx of Infectious Diseases: None - Past Medical History & Family History Past Medical History?: Yes - Past Social History Smoking Status: Former Smoker - CARDIAC Hx Congestive Heart Failure: No Hx Hypercholesterolemia: Yes Hx Hypertension: Yes Hx Peripheral Edema: Yes - PULMONARY Hx Bronchitis: No Hx Chronic Obstructive Pulmonary Disease (COPD): No - NEUROLOGICAL Hx Neurological Disorder: No - HEENT Hx HEENT Problems: Yes Hx Deafness: Yes (slightly [place]) Other/Comment: cataract sx ou - RENAL Hx Chronic Kidney Disease: No - ENDOCRINE/METABOLIC Hx Hypothyroidism: No - HEMATOLOGICAL/ONCOLOGICAL Hx AIDS: No Hx Human Immunodeficiency Virus (HIV): No - INTEGUMENTARY Hx Psoriasis: Yes - MUSCULOSKELETAL/RHEUMATOLOGICAL Hx Falls: No - GASTROINTESTINAL Hx Gastrointestinal Disorders: No - GENITOURINARY/GYNECOLOGICAL Hx Genitourinary Disorders: No - PSYCHIATRIC Hx Substance Use: No - SURGICAL HISTORY Hx Appendectomy: Yes Hx Cholecystectomy: Yes Hx Hysterectomy: Yes - ANESTHESIA Hx Anesthesia: Yes Hx Anesthesia Reactions: No Hx Malignant Hyperthermia: No Has any member of the family had a problem w/ anesthesia?: No Meds Allergies/Adverse Reactions: Allergies Allergy/AdvReac Type Severity Reaction Status Date / Time No Known Allergies Allergy Verified 07/01/16 12:58 - Medications Medications: Current Medications Acetaminophen (Tylenol 325mg Tab) 650 mg PO Q6 PRN PRN Reason: Pain, Mild (1-3) Hydrochlorothiazide (Microzide) 12.5 mg PO DAILY [facility] Last Admin: 07/07/16 08:22 Dose: 12.5 mg Ketorolac Tromethamine (Toradol) 10 mg PO Q6 PRN PRN Reason: Pain, moderate (4-7) Last Admin: 07/06/16 21:38 Dose: 10 mg Lisinopril (Zestril) 10 mg PO DAILY [facility] Last Admin: 07/07/16 08:22 Dose: 10 mg Sennosides (Senokot Tab) 8.6 mg PO HS [facility] Last Admin: 07/06/16 21:38 Dose: Not Given Physical Exam - Respiratory Exam Respiratory Exam: NORMAL BREATHING PATTERN - Cardiovascular Exam Cardiovascular Exam: REGULAR RHYTHM Results - Vital Signs Recent Vital Signs: Last Vital Signs Temp 97.2 F L 07/07/16 07:50 Pulse 71 07/07/16 08:22 Resp 20 07/07/16 07:50 BP 148/76 07/07/16 08:22 Pulse Ox 98 07/07/16 07:50 Assessment & Plan (1) Femur fracture, right Assessment and Plan: The Patient is cleared for surgery at any time Status: Acute Priority: High (2) Hyperlipidemia Status: Chronic (3) Hypertension Status: Chronic Priority: Medium
[2016-07-07] MEDS ORDERED: Enoxaparin 40 mg Syringe SC ONE (13:18)
--- NOTE | 2016-07-07 15:43 | CP.PCM.PN ---
Subjective - Date & Time of Evaluation Date of Evaluation: 07/07/16 Time of Evaluation: 07:00 - Subjective Subjective: Patient was seen and examined at bedside. Patient reports she feels well, and denies nausea, vomiting, diarrheas, chest pain, SOB, abdominal pain, or other complains. She reports that is voiding well and having regular, and normal bowel movements. Denies dizziness or lightheadedness with positional changes. Denies pain at this evaluation. Objective - Vital Signs/Intake and Output Vital Signs (last 24 hours): Temp Pulse Resp BP Pulse Ox 97.2 F L 71 20 148/76 98 07/07/16 07:50 07/07/16 08:22 07/07/16 07:50 07/07/16 08:22 07/07/16 07:50 - Medications Medications: Current Medications Acetaminophen (Tylenol 325mg Tab) 650 mg PO Q6 PRN PRN Reason: Pain, Mild (1-3) Enoxaparin Sodium (Lovenox) 40 mg SC ONCE ONE PRN Reason: Protocol Stop: 07/07/16 13:19 Hydrochlorothiazide (Microzide) 12.5 mg PO DAILY [facility] Last Admin: 07/07/16 08:22 Dose: 12.5 mg Ketorolac Tromethamine (Toradol) 10 mg PO Q6 PRN PRN Reason: Pain, moderate (4-7) Last Admin: 07/06/16 21:38 Dose: 10 mg Lisinopril (Zestril) 10 mg PO DAILY [facility] Last Admin: 07/07/16 08:22 Dose: 10 mg Sennosides (Senokot Tab) 8.6 mg PO HS [facility] Last Admin: 07/06/16 21:38 Dose: Not Given - Constitutional Appears: Non-toxic, No Acute Distress - ENT Exam ENT Exam: Mucous Membranes Moist - Respiratory Exam Respiratory Exam: Clear to Ausculation Bilateral, NORMAL BREATHING PATTERN - Cardiovascular Exam Cardiovascular Exam: REGULAR RHYTHM, +S1, +S2 - GI/Abdominal Exam GI & Abdominal Exam: Soft, Normal Bowel Sounds. absent: Distended, Tenderness - Extremities Exam Extremities Exam: Normal Inspection. absent: Calf Tenderness, Pedal Edema - Back Exam Back Exam: absent: CVA tenderness (L), CVA tenderness (R) - Neurological Exam Neurological Exam: Alert, Awake, Oriented x3 - Psychiatric Exam Psychiatric exam: Normal Affect, Normal Mood - Skin Skin Exam: Dry, Intact, Normal Color Assessment and Plan - Assessment and Plan (Free Text) Assessment: 89 y/o F with Hx of HTN presenting with pain to right leg and inability to walk x 1 day secondary to pain, with mild medial displacement of the distal right femur on extremity CT, awaiting for surgical intervention by Ortho. Plan: Right leg pain most likely secondary to new fracture vs displacement at level of old fracture -Orthopedic on board, Dr. Dooley, awaiting OR on ThuJuly 09 -Cardiology consulted appreciated for OR clearance. Waiting evaluation. 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 Angulation of major fracture fragments and attached hardware not seen previously. Large suprapatellar effusion. -Femur X ray showed New fracture distal femur versus displacement at the level of the old distal femoral fracture. Extensive orthopedic hardware. . There is angulation at the fracture site and mild displacement. -Hip/Pelvis x dario showed : No evidence of acute fracture. Bilateral hip arthroplasty. -Doppler lower extremity showed no evidence of deep venous thrombosis in the right lower extremity. -continue with physical therapy Essential hypertension -Chronic, asymptomatic -Controlled with meds -decreased lisinopril from 20 to 10 mg PO daily on 07/06/16 -c/w HCTZ 12.5 mg PO daily -Heart healthy diet for dinner today -Continue monitoring DVT prophylaxis -SCDs -Lovenox 40 mg once today. Hold tomorrow because surgery scheduled for ThuJuly 09
[2016-07-07 17:33] LABS: BASO % 0.4 % (0.0-2.0); EOS # 0.1 K/uL (0.0-0.7); EOS % 1.3 % (0.0-4.0); HEMATOCRIT 38.3 % (34.0-47.0); LYMPH # 2.6 K/uL (1.0-4.3); LYMPH % 23.9 % (20.0-40.0); MEAN CELL VOLUME 85.2 fl (81.0-99.0); MEAN CORPUSCULAR HEMOGLOBIN 28.8 pg (27.0-31.0); MEAN CORPUSCULAR HGB CONC 33.9 g/dL (33.0-37.0); MEAN PLATELET VOLUME 7.8 fl (7.2-11.7); MONO # 0.7 K/uL (0.0-0.8); MONO % 6.8 % (0.0-10.0); NEUT # 7.4 K/uL (1.8-7.0); NEUT % 67.6 % (50.0-75.0); RED CELL DISTRIBUTION WIDTH 13.6 % (11.5-14.5)
[2016-07-07 17:50] LABS: PARTIAL THROMBOPLASTIN TIME 27.3 SECONDS (23.3-32.5)
[2016-07-07 18:01] LABS: BLOOD UREA NITROGEN 28 mg/dl (7-17); CALCIUM 9.5 mg/dL (8.4-10.2); CARBON DIOXIDE 27 mmol/L (22-30); CHLORIDE 90 mmol/L (98-107); GFR AFRICAN-AMERICAN > 60; GLUCOSE,RANDOM 97 mg/dL (65-105); POTASSIUM 4.2 MMOL/L (3.6-5.0); SODIUM 126 mmol/l (132-148)
--- NOTE | 2016-07-08 12:51 | CP.PCM.PN ---
Objective - Vital Signs/Intake and Output Vital Signs (last 24 hours): Temp Pulse Resp BP Pulse Ox 96.4 F L 82 20 138/57 L 97 07/08/16 08:00 07/08/16 08:20 07/08/16 08:00 07/08/16 08:20 07/08/16 08:00 - Medications Medications: Current Medications Acetaminophen (Tylenol 325mg Tab) 650 mg PO Q6 PRN PRN Reason: Pain, Mild (1-3) Hydrochlorothiazide (Microzide) 12.5 mg PO DAILY [facility] Last Admin: 07/08/16 08:20 Dose: 12.5 mg Ketorolac Tromethamine (Toradol) 10 mg PO Q6 PRN PRN Reason: Pain, moderate (4-7) Last Admin: 07/08/16 08:21 Dose: 10 mg Lisinopril (Zestril) 10 mg PO DAILY [facility] Last Admin: 07/08/16 08:20 Dose: 10 mg Sennosides (Senokot Tab) 8.6 mg PO HS [facility] Last Admin: 07/07/16 21:43 Dose: 8.6 mg - Labs Labs: 07/07/16 17:27 07/07/16 17:27 PT 10.4 SECONDS (9.6-11.2) 07/07/16 17:27 INR 1.00 (0.92-1.08) 07/07/16 17:27 APTT 27.3 SECONDS (23.3-32.5) 07/07/16 17:27
[2016-07-08 17:11] LABS: BLOOD UREA NITROGEN 27 mg/dl (7-17); CALCIUM 9.4 mg/dL (8.4-10.2); CARBON DIOXIDE 22 mmol/L (22-30); CHLORIDE 91 mmol/L (98-107); GFR AFRICAN-AMERICAN > 60; GLUCOSE,RANDOM 91 mg/dL (65-105); SODIUM 124 mmol/l (132-148)
[2016-07-08 17:12] LABS: POTASSIUM 5.2 MMOL/L (3.6-5.0)
[2016-07-09 06:53] LABS: HEMATOCRIT 36.8 % (34.0-47.0); MEAN CELL VOLUME 85.7 fl (81.0-99.0); MEAN CORPUSCULAR HEMOGLOBIN 28.4 pg (27.0-31.0); MEAN CORPUSCULAR HGB CONC 33.2 g/dL (33.0-37.0); RED CELL DISTRIBUTION WIDTH 13.8 % (11.5-14.5)
[2016-07-09 06:54] LABS: ALB/GLOB RATIO 1.1 (1.0-2.1); ALKALINE PHOSPHATASE 61 U/L (38-126); ALT/SGPT 17 U/L (9-52); AST/SGOT 20 U/L (14-36); BILIRUBIN,TOTAL 0.8 mg/dl (0.2-1.3); BLOOD UREA NITROGEN 24 mg/dl (7-17); CALCIUM 9.2 mg/dL (8.4-10.2); CARBON DIOXIDE 25 mmol/L (22-30); CHLORIDE 91 mmol/L (98-107); GFR AFRICAN-AMERICAN > 60; GLUCOSE,RANDOM 92 mg/dL (65-105); MAGNESIUM 2.1 MG/DL (1.6-2.3); PHOSPHOROUS 3.9 mg/dl (2.5-4.5); POTASSIUM 4.4 MMOL/L (3.6-5.0); SODIUM 124 mmol/l (132-148)
[2016-07-09] MEDS ORDERED: Enoxaparin 40 mg Syringe SC STA (09:34)
[2016-07-09 12:37] LABS: CHOLESTEROL 183 mg/dL (0-199)
[2016-07-09 15:59] VITALS: TEMP 97.5; O2SAT 97
[2016-07-09] MEDS ORDERED: Sodium Chloride 0.9% 1,000 ML IV SCH (18:30)
[2016-07-09 19:56] VITALS: BP 146/62; PULSE 81
[2016-07-10] MEDS ORDERED: Propofol 10 mg/ml Inj (20 ML) ONE (07:36)
[2016-07-10] MEDS ORDERED: Bupivacaine HCl/Epi 0.5% 1:20000 30 ML SOL IJ ONE (07:42)
[2016-07-10] MEDS ORDERED: ePHEDrine 50 mg/ml Inj ONE (08:42)
== END 2016-07-10 06:00 | disposition short-term general hospital (02) | DRG 534 ==
LOC: H.TCU 15:29
PROVIDERS: ADMIT Family Medicine Geriatric Medicine; ATTEND Family Medicine Geriatric Medicine
PROC: F07M6FZ Therapeutic Exercise Treatment of Musculoskeletal System - Whole Body using Assistive, Adaptive, Supportive or Protective Equipment (ICD-10-PCS; principal; 2016-07-04)
PROC: F08Z4FZ Home Management Treatment using Assistive, Adaptive, Supportive or Protective Equipment (ICD-10-PCS; 2016-07-04)
DX: S72.401A Unspecified fracture of lower end of right femur, initial encounter for closed fracture (principal); I10 Essential (primary) hypertension; M79.604 Pain in right leg; Y99.9 Unspecified external cause status; Y92.9 Unspecified place or not applicable; Y93.9 Activity, unspecified; X58.XXXA Exposure to other specified factors, initial encounter; Z96.642 Presence of left artificial hip joint; G89.29 Other chronic pain; E78.5 Hyperlipidemia, unspecified; Z87.891 Personal history of nicotine dependence; E78.00 Pure hypercholesterolemia, unspecified

== ENCOUNTER 2016-07-10 08:00 | Inpatient (IN) | payer MEDICARE ==
[2016-07-10] MEDS ORDERED: ceFAZolin 1 GM in Sodium Chloride 0.9% 100 ML IVPB SCH (08:45)
[2016-07-10] MEDS ORDERED: Sodium Chloride 0.9% 1,000 ML IV SCH (16:00)
[2016-07-11 05:08] LABS: HEMATOCRIT 23.6 % (34.0-47.0); MEAN CELL VOLUME 87.7 fl (81.0-99.0); MEAN CORPUSCULAR HEMOGLOBIN 29.5 pg (27.0-31.0); MEAN CORPUSCULAR HGB CONC 33.6 g/dL (33.0-37.0); WHITE BLOOD COUNT 8.8 K/uL (4.8-10.8)
[2016-07-11 05:14] LABS: ALB/GLOB RATIO 0.8 (1.0-2.1); ALKALINE PHOSPHATASE 27 U/L (38-126); ALT/SGPT 20 U/L (9-52); AST/SGOT 11 U/L (14-36); BILIRUBIN,TOTAL 0.4 mg/dl (0.2-1.3); BLOOD UREA NITROGEN 15 mg/dl (7-17); CARBON DIOXIDE 15 mmol/L (22-30); CHLORIDE 115 mmol/L (98-107); GFR AFRICAN-AMERICAN > 60; GLUCOSE,RANDOM 69 mg/dL (65-105); POTASSIUM 2.9 MMOL/L (3.6-5.0); SODIUM 134 mmol/l (132-148); TOTAL PROTEIN 3.4 G/DL (6.3-8.2)
[2016-07-11] MEDS: Oxycodone/Acetaminophen 5/325 mg Tab PO PRN ×3 (06:07→16:22)
[2016-07-11] MEDS ORDERED: Potassium Chloride 20 mEq/15 ml LIQ UD PO ONE (06:20)
[2016-07-11 07:16] LABS: MAGNESIUM 1.2 MG/DL (1.6-2.3)
[2016-07-11] MEDS: Lactated Ringer's 1,000 ML IV SCH ×2 (07:54→19:15)
--- NOTE | 2016-07-11 08:28 | CP.PCM.PN ---
Subjective - Date & Time of Evaluation Date of Evaluation: 07/11/16 Time of Evaluation: 08:25 - Subjective Subjective: S- pt with MINIMAL post op discomfort Objective - Vital Signs/Intake and Output Vital Signs (last 24 hours): Temp Pulse Resp BP Pulse Ox 98.1 F 86 16 112/46 L 96 07/11/16 04:00 07/11/16 06:00 07/11/16 06:00 07/11/16 06:00 07/11/16 06:00 Intake and Output: 07/11/16 07/11/16 06:59 18:59 Intake Total 2260 Output Total 1700 Balance 560 - Medications Medications: Current Medications Acetaminophen (Tylenol 325mg Tab) 650 mg PO Q8 PRN PRN Reason: Pain, Mild (1-3) Amlodipine Besylate (Norvasc) 2.5 mg PO DAILY [facility] Lactated Ringer's (Lactated Ringer's) 1,000 mls @ 80 mls/hr IV .[id number] [facility] Last Admin: 07/11/16 07:54 Dose: 80 mls/hr Morphine Sulfate (Morphine) 2 mg IVP Q4 PRN PRN Reason: Pain, severe (8-10) Oxycodone/Acetaminophen (Percocet 5/325 Mg Tab) 1 tab PO Q4 PRN PRN Reason: Pain, moderate (4-7) Stop: 07/13/16 15:31 Last Admin: 07/11/16 06:07 Dose: 1 tab - Labs Labs: 07/11/16 04:20 07/11/16 04:20 - Additional Findings Additional findings: Objective systemic- as per Dr Goodrich Musculoskeletal stance/gait- defrred R lower extremity dressing dry and intact N/V intact knee immobilizewr intacyt orthopedically stable Xrays reveaL ACCEPTABLE P[OSITON OF CONSTRUCT Assessment and Plan - Assessment and Plan (Free Text) Assessment: a- S/P orif DISTAL 1/3 PERIPRSOTHETIC FEMORAL FX NONUNION p STRICT TOE TOUCH WEIGHT BEARING WITH WA;LKER oob MEDICVAL MGMGT DISCUSSED WITH Dr Mamadou Meza
[2016-07-11 09:26] LABS: FLUID TYPE SYNOVIAL FLUID
[2016-07-11] MEDS ORDERED: Magnesium Sulfate 2 gm/50 ml 2 GM/50 ML BAG IVPB ONE (09:48)
--- NOTE | 2016-07-11 10:01 | RAD ---
PROCEDURE: Right knee HISTORY: COMPARISON: 07/01/2016. Preoperative examination. TECHNIQUE: Portable study 12:55. FINDINGS: Expected postoperative findings following hardware revision. Major fracture fragments are more anatomically aligned compared to the preoperative study. IMPRESSION: Satisfactory postoperative status.
[2016-07-11 10:12] LABS: SYNOVIAL FLUID TOTAL COUNT 100 (0-0)
--- NOTE | 2016-07-11 12:31 | OP ---
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 PROCEDURES: 1. Open reduction and internal fixation comminuted nonunion distal third femur fracture with allogra ft bone plate and cerclage wire. 2. Hardware removal, deep. 3. Knee arthrotomy and partial synovectomy. 4. Autograft allograft bone graft. SURGEON: Robby Ramos MD CLINICAL CARE LEADER: Gaby Shelton, Certified Registered Nursing Stove Polisher. ANESTHESIA: General endotracheal anesthesia; Dr. Milligan. COMPLICATIONS: None. DRAINS: No drains. BLOOD LOSS: Approximately 225 mL. OPERATIVE INDICATION: The patient is an 89-year-old woman who presents with 7 months to 9 months sta tus post successful ORIF. Unfortunately the patient never followed up. The fracture has gone on to nonunion. The patient has been complaining of increasing pain. The patient was admitted, transferre d to TCU. The patient is still complaining of increasing pain and restricted range of motion. Pros, cons, risks and benefits of exploration of the fracture, open reduction repeat internal fixation, an d bone grafting were discussed. The possibility of mechanical failure, infection, thromboembolic dis ease discussed. The concept that the procedure should be done rapidly because of the high risk natur e of the procedure in an 89-year-old is discussed. The patient's electrolytes were off balance. Pat ient was stabilized. During the course of the week in the TCU, the patient did have hyponatremia, hy pokalemia and low calcium. Pros, cons, risks and benefits of the surgical approach were discussed at length with the patient. The possibility of mechanical failure, infection, thromboembolic disease, secondary or tertiary surgery is discussed. The possibility of repeat surgery, the possibility of el ectrical stimulation, etc. are discussed. OPERATIVE PROCEDURE: After having obtained informed consent, after having identified site and proced ure and a critical pause/timeout, after the satisfactory induction of the anesthetic, the patient mihaela ntified as the patient, in the supine position with all bony prominences well padded, the right lower extremity is prepped and free draped in the usual fashion for lower extremity surgery. Under the mcmahon reaeon's direction, the fluoroscope was positioned, video images are generated, therapeutic decisions are made there from. Initial incision is extended 2 fingerbreadths proximally, 2 fingerbreadths dist ally. The skin incision is carried down through the skin and subcutaneous tissue. Elements of skin and subcutaneous tissue was identified. The fascia bree is divided. The dissection is carried down to the knee joint; kneejoint arthrotomy is accomplished. Partial synovectomy is accomplished as well . The dissection is carried down through the scar tissue in the region of the vastus lateralis. Gre at care is taken to control the perforating vessels with the Aquamantys. This having been accomplish ed, the skin incision having been carried down through the skin and subcutaneous tissue, further diss ection is carried down to the plate. The plate is identified. There is found to be avascular bone i n the region and there is found to be cerclage wires, which have lost purchase. Stat Gram stain is t aken for a number of white cells per high powered field of bacteria. 2 white cells, no evidenc e of sepsis, no evidence of bacteria. This having been accomplished, using a wire straightening machine operator the cerclag e wires were clipped and they were removed sequentially. Collets were removed. Several screws were removed. The hardware removal deep having been accomplished, the nonunion is explored. Using a martin , the area of the nonunion after the distal femur is exposed with Hohmann retractors and Villalta retr actors, the area of the nonunion is exposed and the nonunion is excised with a combination of sharp d issection and the bur. This having been accomplished, barrel alfred, Autograft was 3 inches in exte nt are employed, both anteriorly and medially and circumferentially around the nonunion. Prior to pl acing the allograft bone graft, DBX is placed in the defect. This having been accomplished with the allograft bone grafting having been placed in the defect, the bone plates are placed on the ant erior and medial aspect. Careful dissection is carried around posteriorly to avoid injury to the add uctor canal or to the posterior vasculature. The wires were placed around the barrel stays, open red uction internal fixation with interrupted cerclage wire was accomplished. At that point in time, dri lling to the original plate is accomplished and the drilling is accomplished, sounding with depth gau ge and the appropriate sized screw is placed. Further bone grafting is accomplished with DBX bone pu tty. Hardware removal having been accomplished, and nonunion having been excised, bone grafting havi ng been accomplished, the arthrotomy is closed with interrupted FiberWire. Closure is in layers with #2 Quill, 0 Quill, Vicryl, and alfred for skin. A compression dressing is applied. Postoperative x-rays reveal acceptable position of the construct. Again the entire plate is not removed because of the patient's fragile medical condition. Would have liked to extend the plate proximally and correc t some of the angulation; however, this would have been another hour and a half of surgery with the p kalpana's electrolyte imbalance. The judgment call was made to sacrifice perfection for stability. T he construct is stable and acceptable and the further operative exposure, anesthetic exposure, and bl ood loss for this patient is prevented. The situation is discussed at length with the patient postop eratively after she was awakened. Robby Ramos MD cc: [id number] TT: 07/11/2016 12:30:09 jn
--- NOTE | 2016-07-11 14:21 | RAD ---
PROCEDURE: Fluoroscopy up to 1 hr. HISTORY: COMPARISON: None TECHNIQUE: Standard protocol for this study/examination. FINDINGS: Submitted images from the current procedure: 18 IMPRESSION: Total fluoroscopic time (continuous mode) utilized during the procedure: 27.4 seconds.
[2016-07-11] MEDS: Potassium CL 10mEq/100ml 100 ML IVPB SCH ×4 (14:54→19:46)
--- NOTE | 2016-07-11 14:57 | RAD ---
HISTORY: post op COMPARISON: No prior. FINDINGS: LUNGS: Minor atelectasis and/or scarring left lung base PLEURA: No significant pleural effusion identified, no pneumothorax apparent. CARDIOVASCULAR: Normal. OSSEOUS STRUCTURES: Degenerative changes right shoulder girdle. . Minor degenerative changes left acromioclavicular joint. Mild multilevel degenerative spondylosis of the thoracic spine. VISUALIZED UPPER ABDOMEN: Normal. OTHER FINDINGS: None. IMPRESSION: Minor atelectasis and or scarring left lung base
--- NOTE | 2016-07-11 15:01 | CP.PCM.PN ---
<Jennifer Vieira - Last Filed: 07/11/16 21:46> Subjective - Date & Time of Evaluation Date of Evaluation: 07/11/16 Time of Evaluation: 07:05 - Subjective Subjective: Patient was seen and examined at bedside this morning. Patient complaining of right leg pain, 5/10, that decrease with pain medications. Denies numbness, tingling of right toes. Denies chest pain, SOB, nausea, vomiting, abdominal pain or other complains at this evaluation. Objective - Vital Signs/Intake and Output Vital Signs (last 24 hours): Temp Pulse Resp BP Pulse Ox 98.4 F 85 17 132/59 L 98 07/11/16 12:00 07/11/16 12:00 07/11/16 12:00 07/11/16 12:00 07/11/16 12:00 Intake and Output: 07/11/16 07/11/16 06:59 18:59 Intake Total 2260 Output Total 1700 Balance 560 - Medications Medications: Current Medications Acetaminophen (Tylenol 325mg Tab) 650 mg PO Q8 PRN PRN Reason: Pain, Mild (1-3) Amlodipine Besylate (Norvasc) 2.5 mg PO DAILY [facility] Lactated Ringer's (Lactated Ringer's) 1,000 mls @ 80 mls/hr IV .[id number] [facility] Last Admin: 07/11/16 07:54 Dose: 80 mls/hr Morphine Sulfate (Morphine) 2 mg IVP Q4 PRN PRN Reason: Pain, severe (8-10) Oxycodone/Acetaminophen (Percocet 5/325 Mg Tab) 1 tab PO Q4 PRN PRN Reason: Pain, moderate (4-7) Stop: 07/13/16 15:31 Last Admin: 07/11/16 12:13 Dose: 1 tab - Labs Labs: 07/11/16 04:20 07/11/16 04:20 - Constitutional Appears: Non-toxic, No Acute Distress - ENT Exam ENT Exam: Mucous Membranes Moist - Respiratory Exam Respiratory Exam: Clear to Ausculation Bilateral, NORMAL BREATHING PATTERN - Cardiovascular Exam Cardiovascular Exam: RRR, +S1, +S2 - GI/Abdominal Exam GI & Abdominal Exam: Soft, Normal Bowel Sounds. 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 Ramos recommendations -c/w incentive spirometer Anemia H/H:7.9/23.6 most likely secondary to acute blood loss 2 units of PRBC ordered by Ortho f/u repeat H/H after transfusion Hypokalemia K+ 2.9 today Replace potassium with 40 MEQ f/u repeat potassium and Magnesium Mg decreased 1.2 Replace Mag 2 g IVP once DVT prophylaxis -SCDs for now Consider Lovenox <Tennille Frye - Last Filed: 07/12/16 09:09> Objective - Vital Signs/Intake and Output Vital Signs (last 24 hours): Temp Pulse Resp BP Pulse Ox 98.4 F 91 H 23 143/54 L 91 L 07/12/16 04:00 07/12/16 06:00 07/12/16 06:00 07/12/16 06:00 07/12/16 06:00 Intake and Output: 07/12/16 07/12/16 06:59 18:59 Intake Total 800 Output Total 1050 Balance -250 - Medications Medications: Current Medications Acetaminophen (Tylenol 325mg Tab) 650 mg PO Q8 PRN PRN Reason: Pain, Mild (1-3) Amlodipine Besylate (Norvasc) 2.5 mg PO DAILY [facility] Last Admin: 07/12/16 08:09 Dose: 2.5 mg Lactated Ringer's (Lactated Ringer's) 1,000 mls @ 80 mls/hr IV .[id number] [facility] Last Admin: 07/11/16 19:15 Dose: 80 mls/hr Morphine Sulfate (Morphine) 2 mg IVP Q4 PRN PRN Reason: Pain, severe (8-10) Last Admin: 07/12/16 00:03 Dose: 2 mg Oxycodone/Acetaminophen (Percocet 5/325 Mg Tab) 1 tab PO Q4 PRN PRN Reason: Pain, moderate (4-7) Stop: 07/13/16 15:31 Last Admin: 07/11/16 16:22 Dose: 1 tab - Labs Labs: 07/12/16 06:20 07/12/16 06:20 Assessment and Plan - Assessment and Plan (Free Text) Assessment: ATTENDIG NOTE/ ATTESTATION Patient seen and examined. CAse discussed with resident. Patient to receive 2 units of PRBC for severe anemia. Also treatment of electrolyte imbalance. Agree with plan.
--- NOTE | 2016-07-11 15:07 | CP.CCUPN ---
CCU Subjective - Physician Review Subjective (Free Text): MACHINE PRINTER PROGRESS NOTE Patient examined, interim events reviewed: 89M transferred to ICU- s/p R ORIF Revision overnight: Awake and alert, has mild hip wound pain. Does not appear to be in distress. Afebrile, HR 102, SBP range: 90s to 130s, HR 85, RR 17, 98% SPO2 on nasal oxygen. I/Os last 12H = 2260/1700 ROS: All pertinent Nursing notes and all other 10+ systems reviewed: otherwise as above. Other PMSFH: No other new pertinent information relative to current medical problems noted. EXAM- HEENT: no icterus, pupils equal/reactive, no nystagmus nor gaze preference NECK: no JVD, supple, carotids equal upstroke bilat/no bruits CHEST: decreased BS bases, no wheezes audible HEART: regular, distant, S1S2, no murmur audible, no rubs. ABD: soft, no distention, no tympany, no focal tenderness, BS hypoactive EXT: RLE dressing intact, no mottling, no peripheral/ digital cyanosis, no calf tenderness or palpable cords, distal pulses intact and symmetrical. NEURO: no gross focal motor deficits, no tremors. SKIN: no rashes LABS: WBC= 8.8 HGB= 7.9 PLTs= 208K Ca = 5.0 Alb= 1.5 NA= 134 K= 2.9 HCO3= 215 BUN/Cr= 15/0.6 BS= 69 CXR: none ordered. MAJOR PROBLEMS NOW: 1. S/p R ORIF Revision 2. HTN 3. Chronic Disease Anemia 4. Hypokalemia 5. Hyperchloremic Metabolic Acidosis PLAN: 1. Hemodynamics stable post-op 2. Replete more K. Supplement Mag. Check repeat BMP 6-8 hours from AM labs. 3. 2 PRBC units ordered by Ortho 4. Change IVFs over to LR for now from NSS. 5. Stable for stepdown bed.
[2016-07-11 21:32] LABS: BLOOD UREA NITROGEN 22 mg/dl (7-17); CALCIUM 8.3 mg/dL (8.4-10.2); CARBON DIOXIDE 25 mmol/L (22-30); CHLORIDE 97 mmol/L (98-107); GFR AFRICAN-AMERICAN > 60; GLUCOSE,RANDOM 96 mg/dL (65-105); SODIUM 127 mmol/l (132-148)
[2016-07-11 21:38] LABS: POTASSIUM 6.3 MMOL/L (3.6-5.0)
--- NOTE | 2016-07-11 21:58 | CP.PCM.PCO ---
Physician Communication Note - Physician Communication Note Physician Communication Note: After 80mEq of KCL Potassium is 6.3 from 2.9 and Calcium 8.3 from 5.0mg/dl
--- NOTE | 2016-07-11 22:12 | CARD ---
APPROVED REPORT EKG Measurement Heart [id number] CT 178P17 [id number] <Conclusion> Sinus rhythm with premature supraventricular complexes Left axis deviation Inferior infarct, age undetermined Cannot rule out Anterior infarct, age undetermined Abnormal ECG
[2016-07-11 22:51] LABS: BLOOD UREA NITROGEN 21 mg/dl (7-17); CALCIUM 8.4 mg/dL (8.4-10.2); CARBON DIOXIDE 22 mmol/L (22-30); CHLORIDE 99 mmol/L (98-107); GFR AFRICAN-AMERICAN > 60; GLUCOSE,RANDOM 101 mg/dL (65-105); SODIUM 127 mmol/l (132-148)
[2016-07-11 22:57] LABS: POTASSIUM 5.8 MMOL/L (3.6-5.0)
[2016-07-12 07:45] LABS: BLOOD UREA NITROGEN 19 mg/dl (7-17); CALCIUM 8.7 mg/dL (8.4-10.2); CARBON DIOXIDE 24 mmol/L (22-30); CHLORIDE 99 mmol/L (98-107); GFR AFRICAN-AMERICAN > 60; GLUCOSE,RANDOM 86 mg/dL (65-105); SODIUM 130 mmol/l (132-148)
[2016-07-12 07:47] LABS: HEMATOCRIT 38.1 % (34.0-47.0); MEAN CELL VOLUME 87.5 fl (81.0-99.0); MEAN CORPUSCULAR HEMOGLOBIN 29.1 pg (27.0-31.0); MEAN CORPUSCULAR HGB CONC 33.3 g/dL (33.0-37.0); RED CELL DISTRIBUTION WIDTH 14.3 % (11.5-14.5); WHITE BLOOD COUNT 13.7 K/uL (4.8-10.8)
[2016-07-12 08:01] LABS: POTASSIUM 6.1 MMOL/L (3.6-5.0)
[2016-07-12] MEDS ORDERED: Sod Polystyrene Sulf 15 gm/60 ml Oral Susp PO ONE (09:00)
--- NOTE | 2016-07-12 09:24 | CP.PCM.PN ---
<Jennifer Vieira - Last Filed: 07/12/16 12:26> Subjective - Date & Time of Evaluation Date of Evaluation: 07/12/16 Time of Evaluation: 07:40 - Subjective Subjective: Patient was seen and examined at bedside this morning. Patient still reporting pain, but improves with pain medications. Denies chest pain, SOB, nausea, vomiting, abdominal pain, weakness or other complains. Reports that last night she did not sleep well due to " machine noises". Objective - Vital Signs/Intake and Output Vital Signs (last 24 hours): Temp Pulse Resp BP Pulse Ox 98.4 F 91 H 23 143/54 L 91 L 07/12/16 04:00 07/12/16 06:00 07/12/16 06:00 07/12/16 06:00 07/12/16 06:00 Intake and Output: 07/12/16 07/12/16 06:59 18:59 Intake Total 800 Output Total 1050 Balance -250 - Medications Medications: Current Medications Acetaminophen (Tylenol 325mg Tab) 650 mg PO Q8 PRN PRN Reason: Pain, Mild (1-3) Amlodipine Besylate (Norvasc) 2.5 mg PO DAILY [facility] Last Admin: 07/12/16 08:09 Dose: 2.5 mg Lactated Ringer's (Lactated Ringer's) 1,000 mls @ 80 mls/hr IV .[id number] [facility] Last Admin: 07/11/16 19:15 Dose: 80 mls/hr Morphine Sulfate (Morphine) 2 mg IVP Q4 PRN PRN Reason: Pain, severe (8-10) Last Admin: 07/12/16 00:03 Dose: 2 mg Oxycodone/Acetaminophen (Percocet 5/325 Mg Tab) 1 tab PO Q4 PRN PRN Reason: Pain, moderate (4-7) Stop: 07/13/16 15:31 Last Admin: 07/11/16 16:22 Dose: 1 tab - Labs Labs: 07/12/16 06:20 07/12/16 06:20 - Additional Findings Additional findings: Constitutional Appears: Non-toxic, No Acute Distress - ENT Exam ENT Exam: Mucous Membranes Moist - Respiratory Exam Respiratory Exam: Clear to Ausculation Bilateral, NORMAL BREATHING PATTERN - Cardiovascular Exam Cardiovascular Exam: RRR, +S1, +S2 - GI/Abdominal Exam GI & Abdominal Exam: Soft, Normal Bowel Sounds. 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 Ramos recommendations.Orthopedically stable -c/w incentive spirometer -Consider d/c to [facility] tomorrow Anemia most likely secondary to acute blood loss resolved H/H: 12.7/38.1 most likely secondary to acute blood loss s/p 2 units of PRBC ordered by Ortho Hyperkalemia Repeat K+ on 07/12/16 : 6.1. Trending down today morning 5.3 s/p Replaced potassium with 80 MEQ total Consider Kayxalate if persistent elevated Mg decreased 1.2 S/P Replaced Mag 2 g IVP once on 07/11/16 F/U repeat Mag -F/U CPK and EKG Hyponatremia Na: 130 on 07/12/16 Consider NS for IV maintenance F/U repeat CMP Will monitor DVT prophylaxis -SCDs -Start Lovenox 40 mg SC daily <Tennille Frye - Last Filed: 07/13/16 08:22> Objective - Vital Signs/Intake and Output Vital Signs (last 24 hours): Temp Pulse Resp BP Pulse Ox 98.7 F 96 H 22 154/60 H 96 07/13/16 04:00 07/13/16 06:00 07/13/16 06:00 07/13/16 06:00 07/13/16 06:00 Intake and Output: 07/13/16 07/13/16 06:59 18:59 Intake Total 450 Output Total 1000 Balance -550 - Medications Medications: Current Medications Acetaminophen (Tylenol 325mg Tab) 650 mg PO Q8 PRN PRN Reason: Pain, Mild (1-3) Amlodipine Besylate (Norvasc) 2.5 mg PO DAILY [facility] Last Admin: 07/12/16 08:09 Dose: 2.5 mg Enoxaparin Sodium (Lovenox) 40 mg SC DAILY [facility] PRN Reason: Protocol Last Admin: 07/12/16 14:19 Dose: 40 mg Magnesium Oxide (Mag-Ox) 400 mg PO DAILY [facility] Last Admin: 07/12/16 14:19 Dose: 400 mg Morphine Sulfate (Morphine) 2 mg IVP Q4 PRN PRN Reason: Pain, severe (8-10) Last Admin: 07/12/16 14:18 Dose: 2 mg Oxycodone/Acetaminophen (Percocet 5/325 Mg Tab) 1 tab PO Q4 PRN PRN Reason: Pain, moderate (4-7) Stop: 07/13/16 15:31 Last Admin: 07/12/16 11:23 Dose: 1 tab - Labs Labs: 07/13/16 05:45 07/13/16 05:45 Assessment and Plan - Assessment and Plan (Free Text) Assessment: ATTENDING NOTE/ ATTESTATION Patient seen and examined. Patient reports she is feeling better. CAse discussed with resident and director of cardiology. Agree with plan to moniotr labs priscilla. chemistries including hyperkalemia after replacement treatment of hypokalemia. Corporate Communications Intern reports EKG done does not show any acute changes. Agree with plan.
[2016-07-12 10:19] LABS: BLOOD UREA NITROGEN 17 mg/dl (7-17); CALCIUM 8.5 mg/dL (8.4-10.2); CARBON DIOXIDE 24 mmol/L (22-30); CHLORIDE 98 mmol/L (98-107); GFR AFRICAN-AMERICAN > 60; GLUCOSE,RANDOM 80 mg/dL (65-105); POTASSIUM 5.3 MMOL/L (3.6-5.0); SODIUM 127 mmol/l (132-148)
--- NOTE | 2016-07-12 11:17 | CP.PCM.PN ---
Subjective - Date & Time of Evaluation Date of Evaluation: 07/12/16 Time of Evaluation: 11:15 - Subjective Subjective: S- pt with minimal post op discomfort Objective - Vital Signs/Intake and Output Vital Signs (last 24 hours): Temp Pulse Resp BP Pulse Ox 98.3 F 92 H 27 H 114/54 L 97 07/12/16 08:00 07/12/16 10:00 07/12/16 10:00 07/12/16 10:00 07/12/16 10:00 Intake and Output: 07/12/16 07/12/16 06:59 18:59 Intake Total 800 480 Output Total 1050 Balance -250 480 - Medications Medications: Current Medications Acetaminophen (Tylenol 325mg Tab) 650 mg PO Q8 PRN PRN Reason: Pain, Mild (1-3) Amlodipine Besylate (Norvasc) 2.5 mg PO DAILY [facility] Last Admin: 07/12/16 08:09 Dose: 2.5 mg Lactated Ringer's (Lactated Ringer's) 1,000 mls @ 80 mls/hr IV .[id number] [facility] Last Admin: 07/11/16 19:15 Dose: 80 mls/hr Magnesium Oxide (Mag-Ox) 400 mg PO DAILY [facility] Morphine Sulfate (Morphine) 2 mg IVP Q4 PRN PRN Reason: Pain, severe (8-10) Last Admin: 07/12/16 00:03 Dose: 2 mg Oxycodone/Acetaminophen (Percocet 5/325 Mg Tab) 1 tab PO Q4 PRN PRN Reason: Pain, moderate (4-7) Stop: 07/13/16 15:31 Last Admin: 07/11/16 16:22 Dose: 1 tab - Labs Labs: 07/12/16 06:20 07/12/16 09:45 - Skin Skin Exam: Normal Color, Warm Additional comments: Objective systemic- wnl Musculoskekltal stance/gait- dferred R femroal wound bening N/V intact orthopedically stable pt received 2 units prbc's yesterday post op Xrays reveal acceptable position of condtruct stable Assessment and Plan - Assessment and Plan (Free Text) Assessment: A- s/p ORIF disoplaced didtal 1/3 femur fx nonunion orthopedically stable P- orthopedically stble for d/c to [facility]
[2016-07-12] MEDS: Oxycodone/Acetaminophen 5/325 mg Tab PO PRN (11:23)
--- NOTE | 2016-07-12 11:35 | PN ---
DATE: 07/12/2016 LOCATION: The patient in ICU, bed 435. TIME SPENT: 25 minutes. The patient is seen and evaluated at the bedside. Events since admission reviewed. Past medical, mcmahon rgical and social history reviewed. 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 Events overnight, normotensive, afebrile. Telemetry, sinus rhythm with occasional ectopics, status post potassium supplement. Subsequent potas sium noted to be elevated at 6.1. Remains alert, awake, follows commands appropriate. Denies headac he. No shortness of breath, chest pain or palpitation. No abdominal pain. Complaining of mild to m oderate pain at the site of surgery, right leg. No swelling of left lower extremity. PHYSICAL EXAMINATION: VITAL SIGNS: Temperature 98.4, heart rate 92 and regular, respiratory rate 22-23, blood pressure 114 -156/54-85. Oxygen saturation 97% on room air. Intake 2490, output 1050. Positive balance of 1440. Weight 160 pounds. HEENT: Pupils are reactive. Conjunctivae are pale. Sclerae are anicteric. NECK: Supple. Trachea central. CHEST: Bilateral breath sounds, diminished intensity. Clear to auscultation. HEART: Rhythm regular. S1, S2 normal. No audible murmur. ABDOMEN: Bowel sounds present, soft. Liver and spleen are not palpable. Bladder not distended. EXTREMITIES: Right lower extremity dressing intact. No mottling. DP palpable, reduced in intensity . NEUROLOGIC: Moves all 4 extremities. SKIN: Without rash. LABORATORY DATA: WBC 13.7, hemoglobin 12.7, hematocrit 38.1, platelet count 267. Sodium 127, potass ium 5.3, chloride 98, CO2 24, blood urea nitrogen 17, creatinine 0.8. Random glucose 80, calcium 8.5 , total CK 139. Synovial fluid WBC 52, RBC 12 38, neutrophils 76, lymphocytes 17, monocytes 7. CURRENT MEDICATIONS: Tylenol 650 q. 8 p.r.n. for mild to moderate pain, Norvasc 2.5 mg p.o. daily, n ormal saline at 80 mL per hour, morphine sulfate 2 mg IV q. 4 p.r.n. for pain, Percocet 5/325 mg 1 ta blet q. 4 p.r.n. IMPRESSION AND PLAN: 1. 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 Continue analgesics as needed. Consider Lovenox for deep venous thrombosis prophyl axis once cleared by surgeon, Dr. Ramos. Discussed with family practice attending and resident. Co ntinue incentive spirometry. Weightbearing once cleared by orthopedic consult. 2. Anemia secondary to acute blood loss, status post transfusion of packed red blood cells, 2 units. Current hemoglobin is 12.7 and 38.01. 3. Hyperkalemia, resolving. Current potassium is 5.3. Closely monitor. Will continue magnesium ox mihaela 400 mg p.o. daily for 2 days. 4. Hyponatremia. Current sodium is 127. Continue normal saline at 80 mL per hour. Follow sodium l evel. Avoid hyponatremia. 5. Hypertension. History of hypertension before, to superimposed pain. Continue amlodipine. Close ly monitor for tachycardia. The patient is stable from post-op standpoint. Can be transferred to the floor. Roland Krishna MD cc: 170 TT: 07/12/2016 11:34:09 Confirmation # [id number] Dictation # [id number] isai
--- NOTE | 2016-07-12 13:06 | CARD ---
APPROVED REPORT EKG Measurement Heart [id number] VA 162P0 [id number] <Conclusion> Sinus rhythm with occasional premature ventricular complexes Left axis deviation Low voltage QRS Inferior infarct, age undetermined Abnormal ECG
--- NOTE | 2016-07-12 13:07 | CARD ---
APPROVED REPORT EKG Measurement Heart [id number] MO 156P24 [id number] <Conclusion> Normal sinus rhythm Low voltage QRS Inferior infarct, age undetermined Abnormal ECG
[2016-07-12] MEDS: Magnesium Oxide 400 mg Tab UD PO SCH (14:19)
[2016-07-12] MEDS: Enoxaparin 40 mg Syringe SC SCH (14:19)
[2016-07-13 06:42] LABS: MEAN CELL VOLUME 86.6 fl (81.0-99.0); MEAN CORPUSCULAR HEMOGLOBIN 29.1 pg (27.0-31.0); MEAN CORPUSCULAR HGB CONC 33.7 g/dL (33.0-37.0); RED CELL DISTRIBUTION WIDTH 14.5 % (11.5-14.5); WHITE BLOOD COUNT 12.5 K/uL (4.8-10.8)
[2016-07-13 06:49] LABS: ALB/GLOB RATIO 0.9 (1.0-2.1); ALKALINE PHOSPHATASE 63 U/L (38-126); ALT/SGPT 16 U/L (9-52); AST/SGOT 17 U/L (14-36); BILIRUBIN,TOTAL 1.2 mg/dl (0.2-1.3); BLOOD UREA NITROGEN 15 mg/dl (7-17); CARBON DIOXIDE 24 mmol/L (22-30); CHLORIDE 97 mmol/L (98-107); GFR AFRICAN-AMERICAN > 60; GLUCOSE,RANDOM 98 mg/dL (65-105); MAGNESIUM 2.2 MG/DL (1.6-2.3); POTASSIUM 4.8 MMOL/L (3.6-5.0); SODIUM 126 mmol/l (132-148); TOTAL PROTEIN 6.2 G/DL (6.3-8.2)
[2016-07-13] MEDS: Enoxaparin 40 mg Syringe SC SCH (09:10)
[2016-07-13] MEDS: Magnesium Oxide 400 mg Tab UD PO SCH (09:10)
--- NOTE | 2016-07-13 12:03 | CP.PCM.PN ---
<Paty Dunn - Last Filed: 07/14/16 18:09> Subjective - Date & Time of Evaluation Date of Evaluation: 07/13/16 Time of Evaluation: 09:35 - Subjective Subjective: Patient seen and examined at bedside in ICU, no acute distress, pain well controlled at this time. Overnight Uneventful. Patient states that she is feeling well, good appetite, good diuresis. Afebrile, no SOB, no chest pain, no calf pain. Objective - Vital Signs/Intake and Output Vital Signs (last 24 hours): Temp Pulse Resp BP Pulse Ox 98.1 F 90 23 152/54 H 98 07/13/16 08:00 07/13/16 09:16 07/13/16 09:16 07/13/16 09:16 07/13/16 09:16 Intake and Output: 07/13/16 07/13/16 06:59 18:59 Intake Total 450 0 Output Total 1000 Balance -550 0 - Medications Medications: Current Medications Acetaminophen (Tylenol 325mg Tab) 650 mg PO Q8 PRN PRN Reason: Pain, Mild (1-3) Amlodipine Besylate (Norvasc) 2.5 mg PO DAILY [facility] Last Admin: 07/13/16 09:11 Dose: 2.5 mg Enoxaparin Sodium (Lovenox) 40 mg SC DAILY [facility] PRN Reason: Protocol Last Admin: 07/13/16 09:10 Dose: 40 mg Magnesium Oxide (Mag-Ox) 400 mg PO DAILY [facility] Last Admin: 07/13/16 09:10 Dose: 400 mg Morphine Sulfate (Morphine) 2 mg IVP Q4 PRN PRN Reason: Pain, severe (8-10) Last Admin: 07/12/16 14:18 Dose: 2 mg Oxycodone/Acetaminophen (Percocet 5/325 Mg Tab) 1 tab PO Q4 PRN PRN Reason: Pain, moderate (4-7) Stop: 07/13/16 15:31 Last Admin: 07/12/16 11:23 Dose: 1 tab - Labs Labs: 07/13/16 05:45 07/13/16 05:45 - Additional Findings Additional findings: Constitutional Appears: Non-toxic, No Acute Distress - ENT Exam ENT Exam: Mucous Membranes Moist - Respiratory Exam Respiratory Exam: Clear to Ausculation Bilateral, NORMAL BREATHING PATTERN - Cardiovascular Exam Cardiovascular Exam: RRR, +S1, +S2 - GI/Abdominal Exam GI & Abdominal Exam: Soft, Normal Bowel Sounds. 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 Hx of HTN BP elevated, intermittent in the last 48 hrs will increase Amlodipine to 5 mg PO daily continue to monitor. DVT prophylaxis -SCDs -Lovenox 40 mg SC daily <Tennille Frye - Last Filed: 07/15/16 09:26> Objective - Vital Signs/Intake and Output Vital Signs (last 24 hours): Temp Pulse Resp BP Pulse Ox 98.1 F 92 H 18 158/90 H 97 07/14/16 08:33 07/14/16 08:47 07/14/16 08:33 07/14/16 12:00 07/14/16 08:33 - Labs Labs: 07/14/16 06:30 07/14/16 06:30 Assessment and Plan - Assessment and Plan (Free Text) Plan: ATTENDING NOTE/ ATTESTATION PATIENT SEEN AND EXAMINED. CASE DISCUSSED WITH RESIDENT. AGREE WITH PLAN.
--- NOTE | 2016-07-13 12:57 | PN ---
DATE: 07/13/2016 CRITICAL CARE PROGRESS NOTE LOCATION: The patient in ICU, bed 435. TIME SPENT: 25 minutes. The patient is seen and evaluated at the bedside. PAST MEDICAL, SURGICAL, AND SOCIAL HISTORY: Reviewed. Overnight uneventful postoperative day 3 status post open reduction internal fixation distal 1/3 yuni prosthetic femoral fracture nonunion. Telemetry sinus rhythm with occasional ectopics. Denies headache, shortness of breath, chest pain, palpitation. Tolerating p.o. feeds. Mild to moder ate pain at the site of surgery, right leg. No swelling of the left lower extremity. PHYSICAL EXAMINATION: VITAL SIGNS: Temperature 98.1, heart rate 90 regular, blood pressure 152/54, respiratory rate 23, pu lse oximetry 98% on room air. Intake 1650, output 1000, positive balance 650. Weight 160 pounds. HEAD, EYES, EARS, NOSE, AND THROAT: Pupils are reactive. Conjunctivae are pale. Sclerae are anicte ramez. NECK: Supple. Trachea is central. CHEST: Bilateral breath sounds diminished in intensity. Clear to auscultation. HEART: Rhythm regular. S1, S2 normal. No audible murmur. ABDOMEN: Bowel sounds present, soft. Liver and spleen not palpable. Bladder not distended. EXTREMITIES: Right lower extremity dressing intact. No mottling. DP palpable, reduced in intensity . NEUROLOGIC: Moves all 4 extremities. SKIN: Without rash. LABORATORY DATA: WBC 12.5, hemoglobin 11.8, hematocrit 35, platelet count 289. SMA-7: Sodium 126, potassium 4.8, chloride 97, CO2 of 24, blood urea nitrogen 15, creatinine 0.7. Serum osmolality 269, calcium 9, magnesium 2.2. Total bilirubin 1.2, AST 17, ALT 16, alkaline phosphatase 63. Total prot ein 6.2, albumin 3, albumin globulin ratio 0.9. Urine osmolality 306. Urine random sodium 75. Urin e potassium 25.3. IMPRESSION: 1. Postoperative day 3 status post reduction and internal fixation, distal 1/3 periprosthetic femora l fracture nonunion. Stable postop. Continue analgesics as needed. Deep vein thrombosis prophylaxi s with Lovenox 40 mg subQ daily. 2. Hypokalemia/hyperkalemia, resolved. 3. 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 4. Anemia secondary to acute blood loss, status post transfusion of packed red blood cells. Current ly stable. 5. Hypertension, controlled on amlodipine. Discontinue IV fluid for strict fluid intake to 1 liter a day. Roland Krishna MD cc: 170 TT: 07/13/2016 12:57:02 Confirmation # [id number] Dictation # [id number] eric
[2016-07-14 07:33] LABS: HEMATOCRIT 34.6 % (34.0-47.0); MEAN CELL VOLUME 86.2 fl (81.0-99.0); MEAN CORPUSCULAR HEMOGLOBIN 28.7 pg (27.0-31.0); MEAN CORPUSCULAR HGB CONC 33.3 g/dL (33.0-37.0); WHITE BLOOD COUNT 11.5 K/uL (4.8-10.8)
[2016-07-14 07:44] LABS: ALKALINE PHOSPHATASE 61 U/L (38-126); ALT/SGPT 25 U/L (9-52); AST/SGOT 24 U/L (14-36); BILIRUBIN,TOTAL 1.1 mg/dl (0.2-1.3); BLOOD UREA NITROGEN 13 mg/dl (7-17); CALCIUM 8.6 mg/dL (8.4-10.2); CARBON DIOXIDE 25 mmol/L (22-30); CHLORIDE 94 mmol/L (98-107); GFR AFRICAN-AMERICAN > 60; GLUCOSE,RANDOM 101 mg/dL (65-105); POTASSIUM 4.6 MMOL/L (3.6-5.0); SODIUM 125 mmol/l (132-148); TOTAL PROTEIN 6.2 G/DL (6.3-8.2)
[2016-07-14 08:33] VITALS: PULSE 92; RESP 18; TEMP 98.1; O2SAT 97
[2016-07-14] MEDS: Enoxaparin 40 mg Syringe SC SCH (08:46)
[2016-07-14] MEDS: Magnesium Oxide 400 mg Tab UD PO SCH (08:47)
--- NOTE | 2016-07-14 10:36 | CP.PCM.PN ---
Subjective - Date & Time of Evaluation Date of Evaluation: 07/14/16 Time of Evaluation: 08:50 - Subjective Subjective: Patient was seen and examined at bedside this morning. Patient had an uneventful night. Patient reports that she has pain when she moves her right leg , but pain is well controlled with pain medications. Voiding well, passing gas, but states last bowel movement was before surgery. Alert, awake an oriented x3. Denies CP, SOB, nausea, vomiting, abdominal pain. Objective - Vital Signs/Intake and Output Vital Signs (last 24 hours): Temp Pulse Resp BP Pulse Ox 98.1 F 92 H 18 174/88 H 97 07/14/16 08:33 07/14/16 08:47 07/14/16 08:33 07/14/16 08:47 07/14/16 08:33 - Medications Medications: Current Medications Acetaminophen (Tylenol 325mg Tab) 650 mg PO Q8 PRN PRN Reason: Pain, Mild (1-3) Amlodipine Besylate (Norvasc) 5 mg PO DAILY [facility] Last Admin: 07/14/16 08:47 Dose: 5 mg Enoxaparin Sodium (Lovenox) 40 mg SC DAILY [facility] PRN Reason: Protocol Last Admin: 07/14/16 08:46 Dose: 40 mg Magnesium Oxide (Mag-Ox) 400 mg PO DAILY [facility] Last Admin: 07/14/16 08:47 Dose: 400 mg Morphine Sulfate (Morphine) 2 mg IVP Q4 PRN PRN Reason: Pain, severe (8-10) Last Admin: 07/14/16 08:52 Dose: 2 mg - Labs Labs: 07/14/16 06:30 07/14/16 06:30 - Additional Findings Additional findings: Constitutional Appears: Non-toxic, No Acute Distress - ENT Exam ENT Exam: Mucous Membranes Moist - Respiratory Exam Respiratory Exam: Clear to Ausculation Bilateral, NORMAL BREATHING PATTERN - Cardiovascular Exam Cardiovascular Exam: RRR, +S1, +S2 - GI/Abdominal Exam GI & Abdominal Exam: Soft, Normal Bowel Sounds. absent: Distended, Guarding, Rigid, Tenderness - Neurological Exam Neurological Exam: Alert, Awake, Oriented x3 - Skin Skin Exam: Dry, Intact, Pallor Assessment and Plan - Assessment and Plan (Free Text) Assessment: 89 y/o F with PMHx of HTN S/P orif DISTAL 1/3 PERIPRSOTHETIC FEMORAL FX NONUNION Plan: S/P orif DISTAL 1/3 PERIPRSOTHETIC FEMORAL FX NONUNION (POD#3) -c/w Pain management -Orthopedically stable as per ortho, stable for transfer to Med/Surg -c/w incentive spirometer - PT eval: subacute rehab Hyponatremia Na: 125 on 07/14/16 fluid restriction d/c IVFs Will monitor Consider Nephrology consult when in TCU Hx of HTN BP elevated, intermittent in the last 48 hrs will increase Amlodipine to 5 mg PO daily continue to monitor. Prophylaxis -SCDs -Lovenox 40 mg SC daily for DVT -Senokot for constipation
--- NOTE | 2016-07-14 13:49 | CP.PCM.DIS ---
Provider - Provider Date of Admission: 07/10/16 15:30 Attending physician: Izabella Padilla MD Time Spent in preparation of Discharge (in minutes): 30 Hospital Course - Lab Results Lab Results: Micro Results 07/11/16 Unknown Thigh - Right Anaerobic Culture - Final NO ANAEROBES ISOLATED. 07/11/16 Unknown Other: Please Indicate Gram Stain - Final 07/11/16 Unknown Other: Please Indicate Body Fluid Culture - Preliminary NO GROWTH AFTER 2 DAYS 07/11/16 Unknown Thigh - Right Wound Culture - Preliminary No growth. 07/11/16 Unknown Thigh - Right Wound Culture - Preliminary No growth. 07/11/16 Unknown Thigh - Right Gram Stain - Final 07/11/16 Unknown Thigh - Right Wound Culture - Preliminary No growth. 07/11/16 Unknown Thigh - Right Gram Stain - Final 07/11/16 Unknown Thigh - Right Wound Culture - Preliminary No growth. 07/11/16 Unknown Thigh - Right Gram Stain - Final 07/11/16 Unknown Thigh - Right Wound Culture - Preliminary No growth. 07/11/16 Unknown Thigh - Right Gram Stain - Final 07/11/16 Unknown Thigh - Right Wound Culture - Preliminary No growth. 07/11/16 Unknown Thigh - Right Gram Stain - Final 07/11/16 Unknown Thigh - Right Wound Culture - Preliminary No growth. 07/11/16 Unknown Other: Please Indicate Mycobacterial Culture - Preliminary 07/10/16 Unknown Naris MRSA Culture (Admit) - Final MRSA NOT DETECTED Most Recent Lab Values WBC 11.5 K/uL (4.8-10.8) H 07/14/16 06:30 RBC 4.01 Mil/uL (3.80-5.20) 07/14/16 06:30 Hgb 11.5 g/dL (12.0-16.0) L 07/14/16 06:30 Hct 34.6 % (34.0-47.0) 07/14/16 06:30 MCV 86.2 fl (81.0-99.0) 07/14/16 06:30 MCH 28.7 pg (27.0-31.0) 07/14/16 06:30 MCHC 33.3 g/dL (33.0-37.0) 07/14/16 06:30 RDW 14.0 % (11.5-14.5) 07/14/16 06:30 Plt Count 331 K/uL (130-400) 07/14/16 06:30 Sodium 125 mmol/l (132-148) L 07/14/16 06:30 Potassium 4.6 MMOL/L (3.6-5.0) 07/14/16 06:30 Chloride 94 mmol/L (98-107) L 07/14/16 06:30 Carbon Dioxide 25 mmol/L (22-30) 07/14/16 06:30 Anion Gap 11 (10-20) 07/14/16 06:30 BUN 13 mg/dl (7-17) 07/14/16 06:30 Creatinine 0.6 mg/dL (0.7-1.2) L 07/14/16 06:30 Est GFR ( Amer) > 60 07/14/16 06:30 Est GFR (Non-Af Amer) > 60 07/14/16 06:30 Random Glucose 101 mg/dL (65-105) 07/14/16 06:30 Serum Osmolality 269 mosm/kg (272-300) L 07/13/16 07:30 Calcium 8.6 mg/dL (8.4-10.2) 07/14/16 06:30 Magnesium 2.2 MG/DL (1.6-2.3) 07/13/16 05:45 Total Bilirubin 1.1 mg/dl (0.2-1.3) 07/14/16 06:30 AST 24 U/L (14-36) 07/14/16 06:30 ALT 25 U/L (9-52) 07/14/16 06:30 Alkaline Phosphatase 61 U/L (38-126) 07/14/16 06:30 Total Creatine Kinase 139 U/L (30-135) H 07/12/16 09:45 Total Protein 6.2 G/DL (6.3-8.2) L 07/14/16 06:30 Albumin 3.0 g/dL (3.5-5.0) L 07/14/16 06:30 Globulin 3.1 gm/dL (2.2-3.9) 07/14/16 06:30 Albumin/Globulin Ratio 1.0 (1.0-2.1) 07/14/16 06:30 Urine Osmolality 306 mosm/kg (300-1000) 07/13/16 08:45 Ur Random Sodium 75 meq/L 07/13/16 08:45 Ur Random Potassium 25.3 mmol/L 07/13/16 08:45 Fluid Type Synovial fluid 07/11/16 Unknown Synovial WBC 52.0 /mm3 (0.0-150.0) 07/11/16 Unknown Synovial RBC 1238.0 /mm3 (0.0-0.0) H 07/11/16 Unknown Synovial Neutrophils 76.0 % (0-0) H 07/11/16 Unknown Synovial Lymphocytes 17.0 % (0-0) H 07/11/16 Unknown Synov Monos/Macrophage 7 % (0-0) H 07/11/16 Unknown Blood Type A POSITIVE 07/10/16 08:30 Antibody Screen Negative 07/10/16 08:30 Crossmatch See Detail 07/10/16 08:30 BBK History Checked Patient has bt 07/10/16 08:30 - Hospital Course Hospital Course: This is a 89 y/o Female with Hx of HTN, Bilateral Hip replacement, and right femur fractore s/p ORIF on 2015, now S/P orif DISTAL 1/3 PERIPRSOTHETIC FEMORAL FX NONUNION by Dr. Ramos. Patient tolerated surgery well, but hemoglobin decreased from 12 to 7.9 after surgery, and patient was transfused with 2 units of PRBC, and hemoglobin/Hct were improved and stable. Patient has been presenting electrolytes imbalance that has been managed with fluids and replacement, and closely monitor. We will consider nephrology consult while in TCU. Patient was evaluated by physical therapist and recommendations for subacute rehabilitation were given. Patient was seen and examined at bedside this morning. Patient reports pain is well control with pain medications, and denies any complains at this evaluation. Patient stable to be transfer to TCU on home medications and pain management. TCU medications: Same medication regimen as when in [facility] Discharge Exam - Additional Findings Additional findings: Constitutional Appears: Non-toxic, No Acute Distress - ENT Exam ENT Exam: Mucous Membranes Moist - Respiratory Exam Respiratory Exam: Clear to Ausculation Bilateral, NORMAL BREATHING PATTERN - Cardiovascular Exam Cardiovascular Exam: RRR, +S1, +S2 - GI/Abdominal Exam GI & Abdominal Exam: Soft, Normal Bowel Sounds. absent: Distended, Guarding, Rigid, Tenderness - Neurological Exam Neurological Exam: Alert, Awake, Oriented x3 - Skin Skin Exam: Dry, Intact, Normal color Discharge Plan - Discharge Medications Prescriptions: amLODIPine [Norvasc] 5 mg PO DAILY 30 Days oxyCODONE/Acetaminophen [Percocet 5/325 mg Tab] 1 ea PO BID #10 tab - Follow Up Plan Disposition: REHAB FACILITY/REHAB UNIT Instructions: ORIF of Hip Fracture (DC) Additional Instructions: TOE TOUCH WITH CRUTCHES Referrals: Robby Ramos III, MD [Staff Provider] - Izabella Padilla MD [Staff Provider] -
[2016-07-14 15:00] VITALS: BP 158/90
[2016-07-14] MEDS ORDERED: Oxycodone/Acetaminophen 5/325 mg Tab PO SCH (17:00)
[2016-07-14] MEDS ORDERED: Docusate-Senna 50 mg-8.6 mg Tab PO SCH ×2 (22:00)
== END 2016-07-14 16:07 | DRG 481 ==
LOC: H.OPSURG 08:00 → H.ICU/CCU 15:30 → H.MEDSURG1 07-13 13:42
PROVIDERS: ADMIT Family Medicine Geriatric Medicine; ATTEND Family Medicine Geriatric Medicine
PROC: 30233N1 Transfusion of Nonautologous Red Blood Cells into Peripheral Vein, Percutaneous Approach (ICD-10-PCS; 2016-07-10)
PROC: 0QR Lower Bones, Replacement (ICD-10-PCS; 2016-07-10)
PROC: 0QPB04Z Removal of Internal Fixation Device from Right Lower Femur, Open Approach (ICD-10-PCS; 2016-07-10)
PROC: 0QSB04Z Reposition Right Lower Femur with Internal Fixation Device, Open Approach (ICD-10-PCS; principal; 2016-07-10 07:45)
PROC: 0SBC0ZZ Excision of Right Knee Joint, Open Approach (ICD-10-PCS; 2016-07-10 07:45)
DX: M84.451A Pathological fracture, right femur, initial encounter for fracture (principal); M97.11XA Periprosthetic fracture around internal prosthetic right knee joint, initial encounter; E87.2 Acidosis; D62 Acute posthemorrhagic anemia; E87.1 Hypo-osmolality and hyponatremia; E87.5 Hyperkalemia; E87.6 Hypokalemia; I10 Essential (primary) hypertension; Z96.643 Presence of artificial hip joint, bilateral

== ENCOUNTER 2016-07-14 14:18 | Inpatient (IN) | payer OTHER ==
[2016-07-14 16:08] VITALS: RESP 20
[2016-07-14] MEDS: Oxycodone/Acetaminophen 5/325 mg Tab PO PRN (21:30)
[2016-07-15 07:49] LABS: HEMATOCRIT 32.5 % (34.0-47.0); MEAN CELL VOLUME 87.3 fl (81.0-99.0); MEAN CORPUSCULAR HEMOGLOBIN 28.9 pg (27.0-31.0); MEAN CORPUSCULAR HGB CONC 33.1 g/dL (33.0-37.0); RED CELL DISTRIBUTION WIDTH 13.8 % (11.5-14.5); WHITE BLOOD COUNT 10.1 K/uL (4.8-10.8)
[2016-07-15 07:54] LABS: BLOOD UREA NITROGEN 15 mg/dl (7-17); CALCIUM 8.7 mg/dL (8.4-10.2); CARBON DIOXIDE 28 mmol/L (22-30); CHLORIDE 92 mmol/L (98-107); GFR AFRICAN-AMERICAN > 60; GLUCOSE,RANDOM 96 mg/dL (65-105); POTASSIUM 4.7 MMOL/L (3.6-5.0); SODIUM 125 mmol/l (132-148)
[2016-07-15] MEDS: Enoxaparin 40 mg Syringe SC SCH (09:41)
[2016-07-15] MEDS: Oxycodone/Acetaminophen 5/325 mg Tab PO SCH ×2 (09:43→17:57)
--- NOTE | 2016-07-15 09:52 | CP.PCM.HP ---
History of Present Illness - History of Present Illness History of Present Illness: This is a 89 y/o Female with Hx of HTN, Bilateral Hip replacement, and right femur fractore s/p ORIF on 2015, now S/P orif DISTAL 1/ PERIPROSTHETIC FEMORAL FX NONUNION by Dr. Ramos who was admitted in TCU rehabilitation after surgical intervention. Patient was seen and examined at bedside this morning. Alert, awake, and oriented X 3. Patient reports pain is well control with pain medications, but still having pain with right lower extremity movements. Denies chest pain, SOB, chills, nausea, vomiting , abdominal pain. Patient reports that she is voiding well,passing gas, but has not had a bowel movement since morning surgery. Present on Admission - Present on Admission Any Indicators Present on Admission: No History of DVT/PE: Yes History of Uncontrolled Diabetes: No Urinary Catheter: No Decubitus Ulcer Present: No Review of Systems - Constitutional Constitutional: As Per HPI - Cardiovascular Cardiovascular: As Per HPI - Respiratory Respiratory: As Per HPI - Gastrointestinal Gastrointestinal: As Per HPI - Musculoskeletal Musculoskeletal: As Per HPI Past Patient History - Infectious Disease Hx of Infectious Diseases: None - Past Medical History & Family History Past Medical History?: Yes - Past Social History Smoking Status: Never Smoked - CARDIAC Hx Congestive Heart Failure: No Hx Hypercholesterolemia: Yes Hx Hypertension: Yes Hx Peripheral Edema: Yes - PULMONARY Hx Bronchitis: No Hx Chronic Obstructive Pulmonary Disease (COPD): No - NEUROLOGICAL Hx Neurological Disorder: No - HEENT Hx HEENT Problems: Yes Hx Deafness: Yes (slightly [place]) Other/Comment: cataract sx ou - RENAL Hx Chronic Kidney Disease: No - ENDOCRINE/METABOLIC Hx Hypothyroidism: No - HEMATOLOGICAL/ONCOLOGICAL Hx AIDS: No Hx Human Immunodeficiency Virus (HIV): No - INTEGUMENTARY Hx Psoriasis: Yes - MUSCULOSKELETAL/RHEUMATOLOGICAL Hx Arthritis: Yes Hx Falls: No - GASTROINTESTINAL Hx Gastrointestinal Disorders: No - GENITOURINARY/GYNECOLOGICAL Hx Genitourinary Disorders: No - PSYCHIATRIC Hx Substance Use: No - SURGICAL HISTORY Hx Appendectomy: Yes Hx Cholecystectomy: Yes Hx Hysterectomy: Yes Other/Comment: Bilateral THR. bilateral hip surgeries. right femoral ORIF 07/10 - ANESTHESIA Hx Anesthesia: Yes Hx Anesthesia Reactions: No Hx Malignant Hyperthermia: No Meds Home Medications: Home Medication List Medication Instructions Recorded Confirmed Type Sennosides A and B [Senokot Tab] 17.2 mg PO HS #30 tab 07/14/16 07/14/16 Rx Allergies/Adverse Reactions: Allergies Allergy/AdvReac Type Severity Reaction Status Date / Time No Known Allergies Allergy Verified 07/14/16 14:53 Physical Exam - Constitutional Appears: Non-toxic, No Acute Distress - ENT Exam ENT Exam: Mucous Membranes Moist - Respiratory Exam Respiratory Exam: Clear to Auscultation Bilateral, NORMAL BREATHING PATTERN - Cardiovascular Exam Cardiovascular Exam: REGULAR RHYTHM, +S1, +S2 - Extremities Exam Extremities exam: Negative for: calf tenderness Additional comments: Left lower extremity chronic lymphedema. SCDs in place in left lower extremity. Right leg with knee immobilizer in place, R lower extremity dressing dry and intact. - Neurological Exam Neurological exam: Alert, Oriented x3 - Psychiatric Exam Psychiatric exam: Normal Affect, Normal Mood - Skin Skin Exam: Dry, Intact, Normal Color Results - Vital Signs Recent Vital Signs: Last Vital Signs Temp 97.9 F 07/15/16 08:26 Pulse 81 07/15/16 09:41 Resp 20 07/15/16 08:26 BP 134/64 07/15/16 09:41 Pulse Ox 95 07/15/16 08:26 - Labs Result Diagrams: 07/15/16 06:00 07/15/16 06:00 Labs: Laboratory Results - last 24 hr 07/15/16 07/15/16 06:00 06:00 WBC 10.1 RBC 3.73 L Hgb 10.8 L Hct 32.5 L MCV 87.3 MCH 28.9 MCHC 33.1 RDW 13.8 Plt Count 361 Sodium 125 L Potassium 4.7 Chloride 92 L Carbon Dioxide 28 Anion Gap 10 BUN 15 Creatinine 0.8 Est GFR ( Amer) > 60 Est GFR (Non-Af Amer) > 60 Random Glucose 96 Calcium 8.7 Assessment & Plan - Assessment and Plan (Free Text) Assessment: 89 y/o F with PMHx of HTN S/P orif DISTAL 1/3 PERIPRSOTHETIC FEMORAL FX NONUNION, being transferred to TCU for physical therapy evaluation and treatment. Plan: S/P orif DISTAL 1/3 PERIPRSOTHETIC FEMORAL FX NONUNION (POD#5) -Transferred to TCU -c/w Pain management -Orthopedically stable as per ortho, -c/w incentive spirometer -PT eval and treatment Hyponatremia Still present , asymptomatic Na: 125 on 07/15/16 fluid restriction 1200 ml daily Serum osmolarity 269/mild decreased Urine osmolarity and sodium : WNL: 306/75 Will monitor Nephrology consult appreciated, Dr. De La Rosa. F/U recommendations Hx of HTN BP controlled will increase Amlodipine to 5 mg PO daily Will monitor Prophylaxis -SCDs -Lovenox 40 mg SC daily for DVT -Senokot for constipation - Date & Time Date: 07/15/16 Time: 08:00
--- NOTE | 2016-07-15 22:09 | CP.PCM.CON ---
History of Present Illness - History of Present Illness History of Present Illness: REASON FOR CONSULT : MODERATE HYPONATREMIA WITH NA 125 .. RANGING BETWEEN 125 - 130 ALL PREVIOUS EMR REVIEWED .. CURRENT CHART REVIEWED .. [place] WAS SEEN AND EXAMINED This is a 89 y/o Female with Hx of HTN, Bilateral Hip replacement, and right femur fractore s/p ORIF on 2015, now S/P orif DISTAL 1/3 PERIPROSTHETIC FEMORAL FX NONUNION by Dr. Ramos who was admitted in TCU rehabilitation after surgical intervention. Patient was seen and examined at bedside this morning. Alert, awake, and oriented X 3. Patient reports pain is well control with pain medications, but still having pain with right lower extremity movements. Denies chest pain, SOB, chills, nausea, vomiting , abdominal pain. Patient reports that she is voiding well,passing gas, but has not had a bowel movement since morning surgery. Past Patient History - Infectious Disease Hx of Infectious Diseases: None - Past Medical History & Family History Past Medical History?: Yes - Past Social History Smoking Status: Never Smoked - CARDIAC Hx Hypercholesterolemia: Yes Hx Hypertension: Yes - PULMONARY Hx Bronchitis: No Hx Chronic Obstructive Pulmonary Disease (COPD): No - NEUROLOGICAL Hx Neurological Disorder: No - HEENT Hx HEENT Problems: Yes Hx Deafness: Yes (slightly [place]) Other/Comment: cataract sx ou - RENAL Hx Chronic Kidney Disease: No - ENDOCRINE/METABOLIC Hx Hypothyroidism: No - HEMATOLOGICAL/ONCOLOGICAL Hx AIDS: No Hx Human Immunodeficiency Virus (HIV): No - INTEGUMENTARY Hx Psoriasis: Yes - MUSCULOSKELETAL/RHEUMATOLOGICAL Hx Arthritis: Yes - GASTROINTESTINAL Hx Gastrointestinal Disorders: No - GENITOURINARY/GYNECOLOGICAL Hx Genitourinary Disorders: No - PSYCHIATRIC Hx Substance Use: No - SURGICAL HISTORY Hx Appendectomy: Yes Hx Cholecystectomy: Yes Hx Hysterectomy: Yes Other/Comment: Bilateral THR. bilateral hip surgeries. right femoral ORIF 07/10 - ANESTHESIA Hx Anesthesia: Yes Hx Anesthesia Reactions: No Hx Malignant Hyperthermia: No Meds Home Medications: Home Medication List Medication Instructions Recorded Confirmed Type Sennosides A and B [Senokot Tab] 17.2 mg PO HS #30 tab 07/14/16 07/14/16 Rx Allergies/Adverse Reactions: Allergies Allergy/AdvReac Type Severity Reaction Status Date / Time No Known Allergies Allergy Verified 07/14/16 14:53 - Medications Medications: Current Medications Amlodipine Besylate (Norvasc) 5 mg PO DAILY [facility] Last Admin: 07/15/16 09:41 Dose: 5 mg Enoxaparin Sodium (Lovenox) 40 mg SC DAILY [facility] PRN Reason: Protocol Last Admin: 07/15/16 09:41 Dose: 40 mg Oxycodone/Acetaminophen (Percocet 5/325 Mg Tab) 1 tab PO Q8 PRN PRN Reason: Pain, moderate (4-7) Stop: 07/17/16 17:01 Last Admin: 07/14/16 21:30 Dose: 1 tab Oxycodone/Acetaminophen (Percocet 5/325 Mg Tab) 1 tab PO BID [facility] Stop: 07/17/16 17:01 Last Admin: 07/15/16 17:57 Dose: 1 tab Sennosides (Senokot Tab) 17.2 mg PO HS [facility] Last Admin: 07/15/16 22:01 Dose: 17.2 mg Results - Vital Signs Recent Vital Signs: Last Vital Signs Temp 98.4 F 07/15/16 21:19 Pulse 84 07/15/16 21:19 Resp 20 07/15/16 21:19 BP 118/58 L 07/15/16 21:19 Pulse Ox 98 07/15/16 21:19 - Labs Result Diagrams: 07/15/16 06:00 07/15/16 06:00 Labs: Laboratory Results - last 24 hr 07/15/16 07/15/16 06:00 06:00 WBC 10.1 RBC 3.73 L Hgb 10.8 L Hct 32.5 L MCV 87.3 MCH 28.9 MCHC 33.1 RDW 13.8 Plt Count 361 Sodium 125 L Potassium 4.7 Chloride 92 L Carbon Dioxide 28 Anion Gap 10 BUN 15 Creatinine 0.8 Est GFR ( Amer) > 60 Est GFR (Non-Af Amer) > 60 Random Glucose 96 Calcium 8.7 Assessment & Plan - Assessment and Plan (Free Text) Assessment: ISO VOLEMIC HYPONATREMIA .. MOST C/W SIADH .. 2/2 PAIN AND PAIN MEDS MULTIPLE CO MORBIDITIES P : FLUID RESTRICTION 1000 CC/D REPEAT BNP IN AM D/W MED RESIDENT - Date & Time Date: 07/15/16 Time: 15:00
[2016-07-16] MEDS: Oxycodone/Acetaminophen 5/325 mg Tab PO PRN ×2 (04:12→21:37)
[2016-07-16 06:52] LABS: BLOOD UREA NITROGEN 20 mg/dl (7-17); CALCIUM 8.8 mg/dL (8.4-10.2); CARBON DIOXIDE 27 mmol/L (22-30); CHLORIDE 93 mmol/L (98-107); GFR AFRICAN-AMERICAN > 60; GLUCOSE,RANDOM 99 mg/dL (65-105); POTASSIUM 4.5 MMOL/L (3.6-5.0); SODIUM 127 mmol/l (132-148)
[2016-07-16] MEDS: Enoxaparin 40 mg Syringe SC SCH (08:51)
[2016-07-16] MEDS: Oxycodone/Acetaminophen 5/325 mg Tab PO SCH ×2 (08:55→16:42)
--- NOTE | 2016-07-17 00:28 | CP.PCM.PN ---
Subjective - Date & Time of Evaluation Date of Evaluation: 07/16/16 Time of Evaluation: 13:00 - Subjective Subjective: SEEN ON RENAL F/U PT IS COMPLAIT WITH FLUID RESTRICTION NA IS BETTER 125 --> 127 Objective - Vital Signs/Intake and Output Vital Signs (last 24 hours): Temp Pulse Resp BP Pulse Ox 97.9 F 80 20 115/60 98 07/16/16 21:21 07/16/16 21:21 07/16/16 21:21 07/16/16 21:21 07/16/16 21:21 - Medications Medications: Current Medications Amlodipine Besylate (Norvasc) 5 mg PO DAILY [facility] Last Admin: 07/16/16 08:51 Dose: 5 mg Enoxaparin Sodium (Lovenox) 40 mg SC DAILY [facility] PRN Reason: Protocol Last Admin: 07/16/16 08:51 Dose: 40 mg Oxycodone/Acetaminophen (Percocet 5/325 Mg Tab) 1 tab PO Q8 PRN PRN Reason: Pain, moderate (4-7) Stop: 07/17/16 17:01 Last Admin: 07/16/16 21:37 Dose: 1 tab Oxycodone/Acetaminophen (Percocet 5/325 Mg Tab) 1 tab PO BID [facility] Stop: 07/17/16 17:01 Last Admin: 07/16/16 16:42 Dose: 1 tab Sennosides (Senokot Tab) 17.2 mg PO HS [facility] Last Admin: 07/16/16 21:38 Dose: 17.2 mg - Labs Labs: 07/15/16 06:00 07/16/16 06:27 Assessment and Plan - Assessment and Plan (Free Text) Assessment: ISOVOLEMIC HYPONATREMIA .. MOST C/W SIADH MULTIPLE CO MORBEDITIES P C/O FLUID RESTRICTION D/W FP RESIDENT
[2016-07-17 07:17] LABS: BLOOD UREA NITROGEN 22 mg/dl (7-17); CALCIUM 8.6 mg/dL (8.4-10.2); CARBON DIOXIDE 28 mmol/L (22-30); CHLORIDE 93 mmol/L (98-107); GFR AFRICAN-AMERICAN > 60; GLUCOSE,RANDOM 91 mg/dL (65-105); POTASSIUM 4.6 MMOL/L (3.6-5.0); SODIUM 128 mmol/l (132-148)
[2016-07-17] MEDS: Enoxaparin 40 mg Syringe SC SCH (08:48)
[2016-07-17] MEDS: Oxycodone/Acetaminophen 5/325 mg Tab PO SCH ×2 (08:51→18:21)
[2016-07-17] MEDS: Oxycodone/Acetaminophen 5/325 mg Tab PO PRN (15:42)
[2016-07-17] MEDS ORDERED: Magnesium Hydroxide Susp 30 ml UD PO PRN (19:05)
--- NOTE | 2016-07-17 20:27 | CP.PCM.PN ---
Subjective - Date & Time of Evaluation Date of Evaluation: 07/17/16 Time of Evaluation: 13:00 - Subjective Subjective: SEEN ON RENAL F/U NA 125 --> 127 --> 128 Objective - Vital Signs/Intake and Output Vital Signs (last 24 hours): Temp Pulse Resp BP Pulse Ox 98.2 F 79 20 148/65 99 07/17/16 16:50 07/17/16 16:50 07/17/16 16:50 07/17/16 16:50 07/17/16 16:50 - Medications Medications: Current Medications Amlodipine Besylate (Norvasc) 5 mg PO DAILY [facility] Last Admin: 07/17/16 08:49 Dose: 5 mg Enoxaparin Sodium (Lovenox) 40 mg SC DAILY [facility] PRN Reason: Protocol Last Admin: 07/17/16 08:48 Dose: 40 mg Magnesium Hydroxide (Milk Of Magnesia) 30 ml PO DAILY PRN PRN Reason: Constipation Sennosides (Senokot Tab) 17.2 mg PO [facility] Last Admin: 07/16/16 21:38 Dose: 17.2 mg - Labs Labs: 07/15/16 06:00 07/17/16 06:53 Assessment and Plan - Assessment and Plan (Free Text) Assessment: ISOVOLEMIC HYPONATREMIA MOST CONSISTANT WITH SIADH .. IMPRIVING C/O FLUID RESRICTION C/O CURRENT CARE
[2016-07-18 06:51] LABS: HEMATOCRIT 33.5 % (34.0-47.0); MEAN CELL VOLUME 86.9 fl (81.0-99.0); MEAN CORPUSCULAR HEMOGLOBIN 28.8 pg (27.0-31.0); MEAN CORPUSCULAR HGB CONC 33.1 g/dL (33.0-37.0); WHITE BLOOD COUNT 12.8 K/uL (4.8-10.8)
[2016-07-18 07:03] LABS: BLOOD UREA NITROGEN 26 mg/dl (7-17); CALCIUM 8.8 mg/dL (8.4-10.2); CARBON DIOXIDE 29 mmol/L (22-30); CHLORIDE 93 mmol/L (98-107); GFR AFRICAN-AMERICAN > 60; GLUCOSE,RANDOM 103 mg/dL (65-105); POTASSIUM 4.7 MMOL/L (3.6-5.0); SODIUM 129 mmol/l (132-148)
[2016-07-18] MEDS: Enoxaparin 40 mg Syringe SC SCH (09:25)
[2016-07-18] MEDS: Oxycodone/Acetaminophen 5/325 mg Tab PO PRN (09:35)
--- NOTE | 2016-07-18 13:54 | CP.PCM.PN ---
Subjective - Date & Time of Evaluation Date of Evaluation: 07/18/16 Time of Evaluation: 08:55 - Subjective Subjective: 89 y/o F with PMHx of HTN, s/p right femur ORIF, admitted to TCU for rehabilitation and being f/u for isovolemic hyponatremia, and postoperative condition monitoring. Patient seen and examined at bedside. Still complaining of pain in right leg with movements, but control with pain medications. Denies chest pain, SOB, nausea, vomting, abdominal pain. Patient is voiding well, and had a bowel movement yesterday. Objective - Vital Signs/Intake and Output Vital Signs (last 24 hours): Temp Pulse Resp BP Pulse Ox 97.9 F 83 20 133/47 L 98 07/18/16 08:50 07/18/16 09:25 07/18/16 08:50 07/18/16 09:25 07/18/16 08:50 - Medications Medications: Current Medications Amlodipine Besylate (Norvasc) 5 mg PO DAILY [facility] Last Admin: 07/18/16 09:25 Dose: 5 mg Enoxaparin Sodium (Lovenox) 40 mg SC DAILY [facility] PRN Reason: Protocol Last Admin: 07/18/16 09:25 Dose: 40 mg Magnesium Hydroxide (Milk Of Magnesia) 30 ml PO DAILY PRN PRN Reason: Constipation Last Admin: 07/17/16 20:52 Dose: 30 ml Oxycodone/Acetaminophen (Percocet 5/325 Mg Tab) 1 tab PO Q8 PRN PRN Reason: Pain, moderate (4-7) Stop: 07/21/16 17:01 Last Admin: 07/18/16 09:35 Dose: 1 tab Senna/Docusate Sodium (Senokot S 50 Mg-8.6 Mg) 2 tab PO HS [facility] - Labs Labs: 07/18/16 06:00 07/18/16 06:00 - Additional Findings Additional findings: Constitutional Appears: Non-toxic, No Acute Distress - ENT Exam ENT Exam: Mucous Membranes Moist - Respiratory Exam Respiratory Exam: Clear to Auscultation Bilateral, NORMAL BREATHING PATTERN - Cardiovascular Exam Cardiovascular Exam: REGULAR RHYTHM, +S1, +S2 - Extremities Exam Extremities exam: Negative for: calf tenderness Additional comments: Left lower extremity chronic lymphedema. SCDs in place in left lower extremity. Right leg with knee immobilizer in place, R lower extremity dressing dry and intact. - Neurological Exam Neurological exam: Alert, Oriented x3 - Psychiatric Exam Psychiatric exam: Normal Affect, Normal Mood - Skin Skin Exam: Dry, Intact, Normal Color Assessment and Plan - Assessment and Plan (Free Text) Assessment: 89 y/o F with PMHx of HTN, s/p right femur ORIF, admitted to TCU for rehabilitation and being f/u for isovolemic hyponatremia, and postoperative condition monitoring. Plan: S/P orif DISTAL 1/3 PERIPRSOTHETIC FEMORAL FX NONUNION (POD#8) -c/w Pain management -Orthopedically stable as per ortho, -c/w incentive spirometer -c/w PT treatment -C/w OT treatment Leukocytosis -Afebrile, asymtomatic at this times for infection -unclear etiology -F/U CBC Will continue monitoring Thrombocytopenia -Today platelet elevated 555 -Unclear etiology, previous serail CBC were WNL -F/U CBC Isovolemic Hyponatremia Still present , asymptomatic, and improving Na: 129 today fluid restriction 1000 ml daily as per Nephro recommendation Serum osmolarity 269/mild decreased Urine osmolarity and sodium : WNL: 306/75 Nephrology consult appreciated, Dr. De La Rosa. MOST CONSISTENT WITH SIADH. Hx of HTN BP controlled c/w Amlodipine to 5 mg PO daily Will monitor Prophylaxis -SCDs -Lovenox 40 mg SC daily for DVT -Docusate Sod/Senokot for constipation
[2016-07-18] MEDS: Docusate-Senna 50 mg-8.6 mg Tab PO SCH (22:04)
--- NOTE | 2016-07-19 00:43 | CP.PCM.PN ---
Subjective - Date & Time of Evaluation Date of Evaluation: 07/18/16 Time of Evaluation: 14:00 - Subjective Subjective: SEEN ON RENAL F/U ALONG [facility] DR HOLLOWAY NA IS GRADUALY GETTIN BETTER Objective - Vital Signs/Intake and Output Vital Signs (last 24 hours): Temp Pulse Resp BP Pulse Ox 97.9 F 82 20 119/47 L 100 07/18/16 20:13 07/18/16 20:13 07/18/16 20:13 07/18/16 20:13 07/18/16 20:13 - Medications Medications: Current Medications Amlodipine Besylate (Norvasc) 5 mg PO DAILY [facility] Last Admin: 07/18/16 09:25 Dose: 5 mg Enoxaparin Sodium (Lovenox) 40 mg SC DAILY [facility] PRN Reason: Protocol Last Admin: 07/18/16 09:25 Dose: 40 mg Magnesium Hydroxide (Milk Of Magnesia) 30 ml PO DAILY PRN PRN Reason: Constipation Last Admin: 07/17/16 20:52 Dose: 30 ml Oxycodone/Acetaminophen (Percocet 5/325 Mg Tab) 1 tab PO Q8 PRN PRN Reason: Pain, moderate (4-7) Stop: 07/21/16 17:01 Last Admin: 07/18/16 09:35 Dose: 1 tab Senna/Docusate Sodium (Senokot S 50 Mg-8.6 Mg) 2 tab PO HS [facility] Last Admin: 07/18/16 22:04 Dose: 2 tab - Labs Labs: 07/18/16 06:00 07/18/16 06:00 Assessment and Plan - Assessment and Plan (Free Text) Assessment: ISOVOLEMIC HYPONATREMIA .. BETTER C/O CURRENT CARE C/O FLUID RESTRICTION
[2016-07-19] MEDS: Enoxaparin 40 mg Syringe SC SCH (08:48)
[2016-07-19 09:33] LABS: BASO % 0.4 % (0.0-2.0); EOS # 0.1 K/uL (0.0-0.7); EOS % 0.5 % (0.0-4.0); HEMATOCRIT 31.3 % (34.0-47.0); LYMPH # 1.5 K/uL (1.0-4.3); LYMPH % 14.7 % (20.0-40.0); MEAN CELL VOLUME 86.3 fl (81.0-99.0); MEAN CORPUSCULAR HEMOGLOBIN 29.2 pg (27.0-31.0); MEAN CORPUSCULAR HGB CONC 33.8 g/dL (33.0-37.0); MEAN PLATELET VOLUME 7.1 fl (7.2-11.7); MONO # 1.1 K/uL (0.0-0.8); MONO % 11.2 % (0.0-10.0); NEUT # 7.3 K/uL (1.8-7.0); NEUT % 73.2 % (50.0-75.0); NRBC % 0.1 % (0.0-0.0); RED CELL DISTRIBUTION WIDTH 13.6 % (11.5-14.5)
[2016-07-19 09:42] LABS: BLOOD UREA NITROGEN 20 mg/dl (7-17); CALCIUM 8.7 mg/dL (8.4-10.2); CARBON DIOXIDE 28 mmol/L (22-30); CHLORIDE 94 mmol/L (98-107); GFR AFRICAN-AMERICAN > 60; GLUCOSE,RANDOM 103 mg/dL (65-105); POTASSIUM 4.4 MMOL/L (3.6-5.0); SODIUM 127 mmol/l (132-148)
[2016-07-19] MEDS: Oxycodone/Acetaminophen 5/325 mg Tab PO PRN (18:10)
[2016-07-19] MEDS: Docusate-Senna 50 mg-8.6 mg Tab PO SCH (22:35)
[2016-07-20] MEDS: Enoxaparin 40 mg Syringe SC SCH (08:35)
[2016-07-20] MEDS: Docusate-Senna 50 mg-8.6 mg Tab PO SCH (21:47)
[2016-07-21] MEDS: Enoxaparin 40 mg Syringe SC SCH (08:47)
[2016-07-21] MEDS: Docusate-Senna 50 mg-8.6 mg Tab PO SCH (21:41)
--- NOTE | 2016-07-22 00:21 | CP.PCM.PN ---
Subjective - Date & Time of Evaluation Date of Evaluation: 07/21/16 Time of Evaluation: 16:00 - Subjective Subjective: SEEN ON RENAL F/U NA 129 --> 127 RE ENFORCED THE ISSUE OF FLUID RESTRICTION Objective - Vital Signs/Intake and Output Vital Signs (last 24 hours): Temp Pulse Resp BP Pulse Ox 98.1 F 86 20 149/47 L 98 07/21/16 21:12 07/21/16 21:12 07/21/16 21:12 07/21/16 21:12 07/21/16 21:12 - Medications Medications: Current Medications Acetaminophen (Tylenol 325mg Tab) 650 mg PO Q6 PRN PRN Reason: Pain, Mild (1-3) Last Admin: 07/21/16 19:25 Dose: 650 mg Amlodipine Besylate (Norvasc) 5 mg PO DAILY [facility] Last Admin: 07/21/16 08:47 Dose: 5 mg Enoxaparin Sodium (Lovenox) 40 mg SC DAILY [facility] PRN Reason: Protocol Last Admin: 07/21/16 08:47 Dose: 40 mg Magnesium Hydroxide (Milk Of Magnesia) 30 ml PO DAILY PRN PRN Reason: Constipation Last Admin: 07/17/16 20:52 Dose: 30 ml Senna/Docusate Sodium (Senokot S 50 Mg-8.6 Mg) 2 tab PO [facility] Last Admin: 07/21/16 21:41 Dose: Not Given - Labs Labs: 07/19/16 08:00 07/19/16 08:00
[2016-07-22] MEDS: Enoxaparin 40 mg Syringe SC SCH (08:33)
--- NOTE | 2016-07-22 15:00 | CP.PCM.PN ---
Subjective - Date & Time of Evaluation Date of Evaluation: 07/22/16 Time of Evaluation: 10:30 - Subjective Subjective: Patient was seen and examined at bedside this morning. Patient still reporting right leg pain controlled with pain medications. Tolerating PO well. Voiding well, and having normal bowel movements. Objective - Vital Signs/Intake and Output Vital Signs (last 24 hours): Temp Pulse Resp BP Pulse Ox 97.7 F 85 20 127/50 L 98 07/22/16 10:00 07/22/16 10:00 07/22/16 10:00 07/22/16 10:00 07/22/16 10:00 - Medications Medications: Current Medications Acetaminophen (Tylenol 325mg Tab) 650 mg PO Q6 PRN PRN Reason: Pain, Mild (1-3) Last Admin: 07/22/16 05:52 Dose: 650 mg Amlodipine Besylate (Norvasc) 5 mg PO DAILY [facility] Last Admin: 07/22/16 08:33 Dose: 5 mg Enoxaparin Sodium (Lovenox) 40 mg SC DAILY [facility] PRN Reason: Protocol Last Admin: 07/22/16 08:33 Dose: 40 mg Magnesium Hydroxide (Milk Of Magnesia) 30 ml PO DAILY PRN PRN Reason: Constipation Last Admin: 07/17/16 20:52 Dose: 30 ml Senna/Docusate Sodium (Senokot S 50 Mg-8.6 Mg) 2 tab PO HS [facility] Last Admin: 07/21/16 21:41 Dose: Not Given - Labs Labs: 07/19/16 08:00 07/19/16 08:00 - Additional Findings Additional findings: Constitutional Appears: Non-toxic, No Acute Distress - ENT Exam ENT Exam: Mucous Membranes Moist - Respiratory Exam Respiratory Exam: Clear to Auscultation Bilateral, NORMAL BREATHING PATTERN - Cardiovascular Exam Cardiovascular Exam: REGULAR RHYTHM, +S1, +S2 - Extremities Exam Extremities exam: Negative for: calf tenderness Additional comments: Left lower extremity chronic lymphedema. SCDs in place in left lower extremity. Right leg with knee immobilizer in place, R lower extremity dressing dry and intact. - Neurological Exam Neurological exam: Alert, Oriented x3 - Psychiatric Exam Psychiatric exam: Normal Affect, Normal Mood - Skin Skin Exam: Dry, Intact, Normal Color Assessment and Plan - Assessment and Plan (Free Text) Assessment: 89 y/o F with PMHx of HTN, s/p right femur ORIF, admitted to TCU for rehabilitation and being f/u for isovolemic hyponatremia, and postoperative condition monitoring. Plan: S/P orif DISTAL 1/3 PERIPRSOTHETIC FEMORAL FX NONUNION -c/w Pain management -Orthopedically stable as per ortho, -c/w incentive spirometer -c/w PT treatment -C/w OT treatment Thrombocytopenia -Platelets still elevated 555 -Unclear etiology, previous serial CBC were WNL -F/U CBC Isovolemic Hyponatremia Still present , asymptomatic, and improving Na: 127 F/U BMP fluid restriction 1000 ml daily as per Nephro recommendation Serum osmolarity 269/mild decreased Urine osmolarity and sodium : WNL: 306/75 Nephrology consult appreciated, Dr. De La Rosa. MOST CONSISTENT WITH SIADH. Hx of HTN BP controlled c/w Amlodipine to 5 mg PO daily Will monitor Prophylaxis -SCDs -Lovenox 40 mg SC daily for DVT -Docusate Sod/Senokot for constipation
[2016-07-22] MEDS: Docusate-Senna 50 mg-8.6 mg Tab PO SCH (22:06)
[2016-07-23 08:28] LABS: HEMATOCRIT 34.3 % (34.0-47.0); MEAN CELL VOLUME 87.1 fl (81.0-99.0); MEAN CORPUSCULAR HEMOGLOBIN 28.6 pg (27.0-31.0); MEAN CORPUSCULAR HGB CONC 32.8 g/dL (33.0-37.0); RED CELL DISTRIBUTION WIDTH 13.6 % (11.5-14.5)
[2016-07-23] MEDS: Enoxaparin 40 mg Syringe SC SCH (08:28)
[2016-07-23 08:40] LABS: BLOOD UREA NITROGEN 15 mg/dl (7-17); CALCIUM 8.6 mg/dL (8.4-10.2); CARBON DIOXIDE 24 mmol/L (22-30); CHLORIDE 97 mmol/L (98-107); GFR AFRICAN-AMERICAN > 60; GLUCOSE,RANDOM 94 mg/dL (65-105); SODIUM 129 mmol/l (132-148)
[2016-07-23 08:45] LABS: POTASSIUM 4.6 MMOL/L (3.6-5.0)
[2016-07-23] MEDS: Docusate-Senna 50 mg-8.6 mg Tab PO SCH (22:10)
--- NOTE | 2016-07-24 06:32 | CP.PCM.PN ---
Subjective - Date & Time of Evaluation Date of Evaluation: 07/23/16 Time of Evaluation: 13:00 - Subjective Subjective: SEEN ON RENAL F/U FEELS IMPRVED D/W MED RESIDENT Objective - Vital Signs/Intake and Output Vital Signs (last 24 hours): Temp Pulse Resp BP Pulse Ox 97.3 F L 76 20 137/61 100 07/23/16 21:46 07/23/16 21:46 07/23/16 21:46 07/23/16 21:46 07/23/16 21:46 - Medications Medications: Current Medications Acetaminophen (Tylenol 325mg Tab) 650 mg PO Q6 PRN PRN Reason: Pain, Mild (1-3) Last Admin: 07/23/16 21:53 Dose: 650 mg Amlodipine Besylate (Norvasc) 5 mg PO DAILY [facility] Last Admin: 07/23/16 08:29 Dose: 5 mg Enoxaparin Sodium (Lovenox) 40 mg SC DAILY [facility] PRN Reason: Protocol Last Admin: 07/23/16 08:28 Dose: 40 mg Magnesium Hydroxide (Milk Of Magnesia) 30 ml PO DAILY PRN PRN Reason: Constipation Last Admin: 07/17/16 20:52 Dose: 30 ml Senna/Docusate Sodium (Senokot S 50 Mg-8.6 Mg) 2 tab PO HS [facility] Last Admin: 07/23/16 22:10 Dose: 2 tab - Labs Labs: 07/23/16 08:13 07/23/16 08:13 Assessment and Plan - Assessment and Plan (Free Text) Assessment: ISOVOLEMIC HYPONATREMIA C/W SIADH NA IS BACK UP TO 129 C/O FR 1000 CC /D MULTIPLE CO MORBIDIYIES C/O PRESENT MANAGEMENT
[2016-07-24 07:31] LABS: HEMATOCRIT 35.6 % (34.0-47.0); MEAN CORPUSCULAR HEMOGLOBIN 28.4 pg (27.0-31.0); RED CELL DISTRIBUTION WIDTH 13.9 % (11.5-14.5); WHITE BLOOD COUNT 11.8 K/uL (4.8-10.8)
[2016-07-24 07:40] LABS: BLOOD UREA NITROGEN 15 mg/dl (7-17); CALCIUM 8.9 mg/dL (8.4-10.2); CARBON DIOXIDE 25 mmol/L (22-30); CHLORIDE 95 mmol/L (98-107); GFR AFRICAN-AMERICAN > 60; GLUCOSE,RANDOM 81 mg/dL (65-105); POTASSIUM 4.6 MMOL/L (3.6-5.0); SODIUM 128 mmol/l (132-148)
[2016-07-24 08:33] VITALS: BP 129/60; PULSE 69; TEMP 97.9
[2016-07-24] MEDS: Enoxaparin 40 mg Syringe SC SCH (08:43)
[2016-07-24] MEDS ORDERED: Benzocaine/Menthol (Cepacol) Lozenge PO PRN (15:14)
[2016-07-24] MEDS ORDERED: Mag&Al/Simet/Diphen/Lido 237 ML KIT PO SCH (17:00)
--- NOTE | 2016-07-24 21:04 | CP.PCM.DIS ---
Provider - Provider Date of Admission: 07/14/16 15:46 Attending physician: Izabella Padilla MD Primary care physician: None at present, used to see Dr. Babb over 2 yrs ago approximately. Consults: Nephrology Dr. Tineo, Orthopedic Surgery Dr. Ramos Time Spent in preparation of Discharge (in minutes): 30 Diagnosis - Discharge Diagnosis (1) Closed fracture of lower end of right femur Status: Resolved Priority: Medium Hospital Course - Lab Results Lab Results: Most Recent Lab Values WBC 11.8 K/uL (4.8-10.8) H 07/24/16 06:35 RBC 4.13 Mil/uL (3.80-5.20) 07/24/16 06:35 Hgb 11.7 g/dL (12.0-16.0) L 07/24/16 06:35 Hct 35.6 % (34.0-47.0) 07/24/16 06:35 MCV 86.0 fl (81.0-99.0) 07/24/16 06:35 MCH 28.4 pg (27.0-31.0) 07/24/16 06:35 MCHC 33.0 g/dL (33.0-37.0) 07/24/16 06:35 RDW 13.9 % (11.5-14.5) 07/24/16 06:35 Plt Count 750 K/uL (130-400) H 07/24/16 06:35 MPV 7.1 fl (7.2-11.7) L 07/19/16 08:00 Neut % (Auto) 73.2 % (50.0-75.0) 07/19/16 08:00 Lymph % (Auto) 14.7 % (20.0-40.0) L 07/19/16 08:00 [place] % (Auto) 11.2 % (0.0-10.0) H 07/19/16 08:00 Eos % (Auto) 0.5 % (0.0-4.0) 07/19/16 08:00 Baso % (Auto) 0.4 % (0.0-2.0) 07/19/16 08:00 Neut # 7.3 K/uL (1.8-7.0) H 07/19/16 08:00 Lymph # 1.5 K/uL (1.0-4.3) 07/19/16 08:00 [place] # 1.1 K/uL (0.0-0.8) H 07/19/16 08:00 Eos # 0.1 K/uL (0.0-0.7) 07/19/16 08:00 Baso # 0.0 K/uL (0.0-0.2) 07/19/16 08:00 Sodium 128 mmol/l (132-148) L 07/24/16 06:35 Potassium 4.6 MMOL/L (3.6-5.0) 07/24/16 06:35 Chloride 95 mmol/L (98-107) L 07/24/16 06:35 Carbon Dioxide 25 mmol/L (22-30) 07/24/16 06:35 Anion Gap 13 (10-20) 07/24/16 06:35 BUN 15 mg/dl (7-17) 07/24/16 06:35 Creatinine 0.6 mg/dL (0.7-1.2) L 07/24/16 06:35 Est GFR ( Amer) > 60 07/24/16 06:35 Est GFR (Non-Af Amer) > 60 07/24/16 06:35 Random Glucose 81 mg/dL (65-105) 07/24/16 06:35 Calcium 8.9 mg/dL (8.4-10.2) 07/24/16 06:35 - Hospital Course Hospital Course: 89 yr old F admitted to TCU s/p ORIF of right distal 1/3 peroprostehtic femoral fracture nonunion, had hyponatremia. Has PMHx HTN, Bilateral Hip replacement, and right femur fracture s/p ORIF on 2015. Patients pain improved and controlled with medication, tolerated PO diet, normal urine and stool output, tolerated PT, orthopedically stable per Dr. Ramos. Na improved and normalized s/p fluid restriction. Patient was discharged to subacute rehab , will follow up with Dr. Ramos in his outpatient office, follow up PCP with Dr. Babb on . - Date & Time of H&P Date of H&P: 07/15/16 Time of H&P: 09:52 Discharge Exam - Head Exam Head Exam: ATRAUMATIC, NORMOCEPHALIC - Eye Exam Eye Exam: EOMI - ENT Exam ENT Exam: Mucous Membranes Moist - Neck Exam Neck exam: Full Rom - Respiratory Exam Respiratory Exam: Clear to PA & Lateral, NORMAL BREATHING PATTERN. absent: Rales, Rhonchi - GI/Abdominal Exam GI & Abdominal Exam: Normal Bowel Sounds, Soft. absent: Tenderness - Extremities Exam Extremities exam: pedal pulses present (right LE in full brace/immobilizer) - Back Exam Back exam: absent: CVA tenderness (L), CVA tenderness (R) - Neurological Exam Neurological exam: Alert, CN II-XII Intact, Oriented x3 - Psychiatric Exam Psychiatric exam: Normal Affect, Normal Mood - Skin Skin Exam: Dry, Intact Discharge Plan - Follow Up Plan Condition: GOOD Disposition: REHAB FACILITY/REHAB UNIT Instructions: ORIF (SERA) Additional Instructions: follow up with orthopedic 's office.
[2016-07-25 16:15] VITALS: O2SAT 98
== END 2016-07-24 16:00 | DRG 560 ==
LOC: H.TCU 15:46
PROVIDERS: ADMIT Family Medicine Geriatric Medicine; ATTEND Family Medicine Geriatric Medicine
PROC: F07Z9FZ Gait Training/Functional Ambulation Treatment using Assistive, Adaptive, Supportive or Protective Equipment (ICD-10-PCS; principal; 2016-07-15)
PROC: F07M6FZ Therapeutic Exercise Treatment of Musculoskeletal System - Whole Body using Assistive, Adaptive, Supportive or Protective Equipment (ICD-10-PCS; 2016-07-15)
PROC: F08Z4FZ Home Management Treatment using Assistive, Adaptive, Supportive or Protective Equipment (ICD-10-PCS; 2016-07-15)
DX: S72.401D Unspecified fracture of lower end of right femur, subsequent encounter for closed fracture with routine healing (principal); E87.1 Hypo-osmolality and hyponatremia; E22.2 Syndrome of inappropriate secretion of antidiuretic hormone; I10 Essential (primary) hypertension; Z96.643 Presence of artificial hip joint, bilateral; E78.00 Pure hypercholesterolemia, unspecified; H91.90 Unspecified hearing loss, unspecified ear; L40.9 Psoriasis, unspecified

== ENCOUNTER 2016-11-22 10:52 | Inpatient (IN) | payer MEDICARE, OTHER ==
[2016-11-22 10:54] VITALS: BMI 23.6
[2016-11-22] MEDS ORDERED: Sodium Chloride 0.9% 0 ML IV ONE (11:40)
[2016-11-22] MEDS ORDERED: Iohexol 300 100 ML IJ ONE ×2 (11:40→14:12)
[2016-11-22 11:51] LABS: BASO % 0.6 % (0.0-2.0); EOS # 0.1 K/uL (0.0-0.7); EOS % 1.2 % (0.0-4.0); HEMATOCRIT 37.2 % (34.0-47.0); LYMPH # 1.7 K/uL (1.0-4.3); MEAN CELL VOLUME 89.1 fl (81.0-99.0); MEAN CORPUSCULAR HEMOGLOBIN 29.6 pg (27.0-31.0); MEAN CORPUSCULAR HGB CONC 33.2 g/dL (33.0-37.0); MEAN PLATELET VOLUME 8.3 fl (7.2-11.7); MONO # 0.6 K/uL (0.0-0.8); MONO % 7.6 % (0.0-10.0); NEUT % 70.6 % (50.0-75.0); RED CELL DISTRIBUTION WIDTH 14.7 % (11.5-14.5); WHITE BLOOD COUNT 8.5 K/uL (4.8-10.8)
[2016-11-22 12:02] LABS: ALKALINE PHOSPHATASE 79 U/L (38-126); ALT/SGPT 12 U/L (9-52); AST/SGOT 19 U/L (14-36); BILIRUBIN,TOTAL 0.5 mg/dl (0.2-1.3); BLOOD UREA NITROGEN 21 mg/dl (7-17); CALCIUM 9.6 mg/dL (8.4-10.2); CARBON DIOXIDE 25 mmol/L (22-30); CHLORIDE 104 mmol/L (98-107); GFR AFRICAN-AMERICAN > 60; GLUCOSE,RANDOM 91 mg/dL (65-105); POTASSIUM 4.4 MMOL/L (3.6-5.0); SODIUM 143 mmol/l (132-148); TOTAL PROTEIN 7.9 G/DL (6.3-8.2)
--- NOTE | 2016-11-22 13:22 | ED PDOC ---
Lower Extremity Pain/Injury Time Seen by Provider: 11/22/16 11:01 Chief Complaint (Nursing): Abnormal Skin Integrity Chief Complaint (Provider): wound check History Per: Patient History/Exam Limitations: no limitations Onset/Duration Of Symptoms: Days (x3) Current Symptoms Are (Timing): Still Present Additional Complaint(s): Rosa Mcmahan is an 89 year old female, status post ORIF of right femur surgery in June 2015 and revision in June 2016, who presents to the emergency department for a wound evaluation of blister formation to incision site ongoing for 3 days. Denied fever, chills, trauma or drainage. PMD: Robby Ramos III, MD Past Medical History Reviewed: Historical Data, Nursing Documentation, Vital Signs Vital Signs: Last Vital Signs Temp 98.4 F 11/22/16 10:54 Pulse 98 H 11/22/16 10:54 Resp 17 11/22/16 10:54 BP 143/65 11/22/16 10:54 Pulse Ox 98 11/22/16 11:11 - Medical History PMH: Arthritis, Fractures (rt hip/femur), HTN, Hypercholesterolemia, Peripheral Edema Denies: Bronchitis, CHF, COPD, HIV, Hypothyroidism, Chronic Kidney Disease, Rheumatoid Arthritis - Surgical History Surgical History: Appendectomy, Cholecystectomy - Family History Family History: States: Unknown Family Hx - Social History Current smoker - smoking cessation education provided: No Ex-Smoker (has not smoked in the last 12 months): No Alcohol: None Drugs: Denies - Home Medications Home Medications: Ambulatory Orders Medication Instructions Recorded amLODIPine [Norvasc] 5 mg PO DAILY tab 07/24/16 Ibuprofen [Motrin Tab] 600 mg PO QID PRN 11/22/16 - Allergies Allergies/Adverse Reactions: Allergies Allergy/AdvReac Type Severity Reaction Status Date / Time No Known Allergies Allergy Verified 11/22/16 11:11 Review of Systems ROS Statement: Except As Marked, All Systems Reviewed And Found Negative Constitutional: Negative for: Fever, Chills Musculoskeletal: Positive for: Leg Pain (right femur blister formation to incision site). Negative for: Other (trauma or drainage) Physical Exam - Reviewed Nursing Documentation Reviewed: Yes Vital Signs Reviewed: Yes - Physical Exam Appears: Positive for: Well, Non-toxic, No Acute Distress Head Exam: Positive for: ATRAUMATIC, NORMAL INSPECTION, NORMOCEPHALIC Cardiovascular/Chest: Positive for: Regular Rate, Rhythm. Negative for: Chest Non Tender Respiratory: Positive for: Normal Breath Sounds, Accessory Muscle Use. Negative for: Decreased Breath Sounds, Respiratory Distress Extremity: Positive for: Other (right lower extremity incision from proximal right lateral thigh to right lateral knee. (2) 2cm blisters with fluctuation. Minimal erythema/fluctuation to distal end of incision). Negative for: Deformity, Swelling (or induration/discharge) Neurologic/Psych: Positive for: Alert, Oriented - Laboratory Results Result Diagrams: 11/25/16 05:15 11/25/16 05:15 - ECG O2 Sat by Pulse Oximetry: 98 (RA) Pulse Ox Interpretation: Normal Medical Decision Making Medical Decision Making: Initial Impression: Post-op wound Initial Plan: * CT LE with contrast * CMP * CBC Scribe Attestation: Documented by Angeline Valera, acting as a scribe for Leana Mckeon MD. Provider Scribe Attestation: All medical record entries made by the Scribe were at my direction and personally dictated by me. I have reviewed the chart and agree that the record accurately reflects my personal performance of the history, physical exam, medical decision making, and the department course for this patient. I have also personally directed, reviewed, and agree with the discharge instructions and disposition. Disposition - Clinical Impression Clinical Impression: Post-operative complication - Patient ED Disposition Is Patient to be Admitted: Yes - Disposition Disposition Time: 16:03 Condition: STABLE - Pt Status Changed To: Hospital Disposition Of: Inpatient - Admit Certification Admit to Inpatient:: After my assessment, the patient will require hospitalization for at least two midnights. This is because of the severity of symptoms shown, intensity of services needed, and/or the medical risk in this patient being treated as an outpatient. - POA Present On Arrival: Surgical Site Infection
[2016-11-22] MEDS ORDERED: Sodium Chloride 0.9% 50 ML IV ONE (14:12)
--- NOTE | 2016-11-22 15:31 | CT ---
PROCEDURE: CT of the right Hip. HISTORY: 4 mo s/p ORIF, fluctuant mass lateral leg COMPARISON: Right femur radiographs 07/10/2016. TECHNIQUE: Contiguous axial images of the left hip were obtained. Coronal and sagittal reformats were generated. Intravenous contrast not administered as per referring physician request. This CT exam was performed using one or more of the following dose reduction techniques: Automated exposure control, adjustment of the mA and/or kV according to patient size, and/or use of iterative reconstruction technique. FINDINGS: BONES: A status post right shoulder replacement as well as distal right femoral open reduction internal fixation of distal right femoral fracture. The at acetabular and femoral components generate intense artifact which interferes significantly with the ability to review the purchase of those components with low local acetabular bone and proximal femur. Screws transfixing the acetabular component are not associated with local lucency. No osteomyelitis is felt to present at the proximal femoral head replacement component grossly. Image capture through the junction of the distal fixation hardware and the proximal femoral prosthesis tip is grossly degraded and the bone here including exogenous bone graft cannot be evaluated for osteomyelitis. LEFT HIP JOINT: Status post right total replacement. SOFT TISSUES: Fluid is suspected superficial to the distal fixation component as well as at is definite at the suprapatellar bursa with both medial and lateral femorotibial compartment joint effusions identified. IMPRESSION: Fluid is suspected superficially fixation device at the lateral distal thigh segment of the distal femur as well as there being a separate patellar bursa effusion and effusions at the medial lateral femoral tibial compartments. Fixation hardware as well as the femoral component of the right shoulder replacement generating artifacts obscuring the local bone and soft tissues however. Osteomyelitis is not proven or excluded as result throughout this exam but this is particularly true at the distal femur level. It is unclear whether a Ceretec scan or three-phase nuclear bone scan would be of help given the extensive amount of surgery undergone in this patient.
[2016-11-22] MEDS ORDERED: Oxycodone/Acetaminophen 5/325 mg Tab PO PRN (16:55)
[2016-11-22] MEDS ORDERED: Sodium Chloride 0.9% 500 ML IV SCH (17:00)
--- NOTE | 2016-11-22 17:00 | CP.PCM.HP ---
History of Present Illness - History of Present Illness History of Present Illness: 89 y/o Female with Hx of HTN, Bilateral Hip replacement, and right femur fracture s/p ORIF on Jun, 2015, S/P ORIF distal 1/3 periprosthetic femoral Fx nonunion by Dr. Ramos on Jun, 2016 who presents to ED c/o post-surgical wound evaluation of blister formation to incision site for approximately 1 week. Denies fevers, chills, Cp, SOB, pain in right lower extremity or other complains. Patient reports that she walks with her walker at home, with 20 % weight-bearing of right lower extremity as directed by Dr. Ramos. Denies numbness, tingling or weakness of LEs. PMD: Dr. 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, no transportation Denies tobacco, alcohol, and illicit drug use Son and daughter in law Shaina: [phone] Present on Admission - Present on Admission Any Indicators Present on Admission: No History of DVT/PE: No History of Uncontrolled Diabetes: No Urinary Catheter: No Decubitus Ulcer Present: No Review of Systems - Review of Systems All systems: reviewed and no additional remarkable complaints except (as per HPI ) Past Patient History - Infectious Disease Hx of Infectious Diseases: None - Past Medical History & Family History Past Medical History?: Yes - Past Social History Alcohol: None Drugs: Denies - CARDIAC Hx Congestive Heart Failure: No Hx Hypercholesterolemia: Yes Hx Hypertension: Yes Hx Peripheral Edema: Yes - PULMONARY Hx Bronchitis: No Hx Chronic Obstructive Pulmonary Disease (COPD): No - NEUROLOGICAL Hx Neurological Disorder: No - HEENT Hx HEENT Problems: Yes Hx Deafness: Yes (slightly [place]) Other/Comment: cataract sx ou - RENAL Hx Chronic Kidney Disease: No - ENDOCRINE/METABOLIC Hx Hypothyroidism: No - HEMATOLOGICAL/ONCOLOGICAL Hx Human Immunodeficiency Virus (HIV): No - INTEGUMENTARY Hx Psoriasis: Yes - MUSCULOSKELETAL/RHEUMATOLOGICAL Hx Arthritis: Yes Hx Fractures: Yes (rt hip/femur) Hx Rheumatoid Arthritis: No - GASTROINTESTINAL Hx Gastrointestinal Disorders: No - GENITOURINARY/GYNECOLOGICAL Hx Genitourinary Disorders: No - PSYCHIATRIC Hx Psychophysiologic Disorder: No Hx Substance Use: No - SURGICAL HISTORY Hx Appendectomy: Yes Hx Cholecystectomy: Yes - ANESTHESIA Hx Anesthesia: Yes Hx Anesthesia Reactions: No Hx Malignant Hyperthermia: No Meds Allergies/Adverse Reactions: Allergies Allergy/AdvReac Type Severity Reaction Status Date / Time No Known Allergies Allergy Verified 11/22/16 11:11 Physical Exam - Constitutional Appears: No Acute Distress - ENT Exam ENT Exam: Mucous Membranes Moist - Respiratory Exam Respiratory Exam: Clear to Auscultation Bilateral, NORMAL BREATHING PATTERN - Cardiovascular Exam Cardiovascular Exam: REGULAR RHYTHM, +S1, +S2 - GI/Abdominal Exam GI & Abdominal Exam: Normal Bowel Sounds, Soft. absent: Distended, Guarding, Rebound, Rigid, Tenderness - Extremities Exam Extremities exam: Positive for: pedal edema. Negative for: calf tenderness Additional comments: Left lower extremity chronic lymphedema. 2 blisters with fluctuation noted in surgical incision in right lateral thigh. Minimal erythema noted in left LE, w/ o signs of cellulites, mild erythema of surgical incision borders with no drainage noted. - Neurological Exam Neurological exam: Alert, Oriented x3 - Skin Skin Exam: Dry, Intact, Normal Color Results - Vital Signs Recent Vital Signs: Last Vital Signs Temp 98.4 F 11/22/16 10:54 Pulse 98 H 11/22/16 10:54 Resp 17 11/22/16 10:54 BP 143/65 11/22/16 10:54 Pulse Ox 98 11/22/16 13:49 - Labs Result Diagrams: 11/22/16 11:40 11/22/16 11:40 Labs: Laboratory Results - last 24 hr 11/22/16 11/22/16 11:40 11:40 WBC 8.5 RBC 4.18 Hgb 12.4 Hct 37.2 MCV 89.1 D MCH 29.6 MCHC 33.2 RDW 14.7 H Plt Count 392 D MPV 8.3 Neut % (Auto) 70.6 Lymph % (Auto) 20.0 [place] % (Auto) 7.6 Eos % (Auto) 1.2 Baso % (Auto) 0.6 Neut # 6.0 Lymph # 1.7 [place] # 0.6 Eos # 0.1 Baso # 0.0 Sodium 143 Potassium 4.4 Chloride 104 Carbon Dioxide 25 Anion Gap 19 BUN 21 H Creatinine 0.8 Est GFR ( Amer) > 60 Est GFR (Non-Af Amer) > 60 Random Glucose 91 Calcium 9.6 Total Bilirubin 0.5 AST 19 ALT 12 Alkaline Phosphatase 79 Total Protein 7.9 Albumin 3.9 Globulin 4.1 H Albumin/Globulin Ratio 1.0 Assessment & Plan - Assessment and Plan (Free Text) Assessment: 89 y/o Female with Hx of HTN, Bilateral Hip replacement, and right femur fracture, S/P ORIF distal 1/3 periprosthetic femoral Fx nonunion being admitted for post-operative wound evaluation and treatment. Plan: S/P orif Distal 1/3 Periprosthetic femoral Fx nonunion -MedSurg -on Jun, [address] Ramos -r/o wound infection -Afebrile, no leukocytosis, H/H wnl -start Vanco 1 gm Q12 -Pain control PRN -f/u CBC, BMP in am -f/u right hip, femur, and knee x rays ( requested by Dr. Ramos) -BMP: GFR >60 -Right LE Ct scan showed Fluid is suspected superficially fixation device at the lateral distal thigh segment of the distal femur as well as there being a separate patellar bursa effusion and effusions at the medial lateral femoral tibial compartments. Osteomyelitis is not proven or excluded as result throughout this exam but this is particularly true at the distal femur level. -Ortho surgeon, Dr. Ramos was consulted. F/u rec -ID consulted as per Ortho recommendations. F/u recommendations for antibiotics HTN BP controlled c/w Amlodipine to 5 mg PO daily Will monitor Azotemia possible 2/2 mild dehydration BUN: slightly elevated 21, Cr normal Low rate of IV fluids f/u BMP in am. Consider DC IV fluids Prophylaxis -SCDs -Lovenox 40 mg SC daily for DVT -Docusate for constipation - Date & Time Date: 11/22/16 Time: 16:30
[2016-11-23 07:52] LABS: BLOOD UREA NITROGEN 15 mg/dl (7-17); CALCIUM 9.2 mg/dL (8.4-10.2); CARBON DIOXIDE 26 mmol/L (22-30); CHLORIDE 104 mmol/L (98-107); GFR AFRICAN-AMERICAN > 60; GLUCOSE,RANDOM 91 mg/dL (65-105); HEMATOCRIT 35.8 % (34.0-47.0); MEAN CELL VOLUME 89.1 fl (81.0-99.0); MEAN CORPUSCULAR HEMOGLOBIN 28.5 pg (27.0-31.0); POTASSIUM 4.2 MMOL/L (3.6-5.0); RED CELL DISTRIBUTION WIDTH 14.8 % (11.5-14.5); SODIUM 141 mmol/l (132-148); WHITE BLOOD COUNT 7.5 K/uL (4.8-10.8)
[2016-11-23] MEDS: Enoxaparin 40 mg Syringe SC SCH (09:36)
--- NOTE | 2016-11-23 09:48 | CP.PCM.PN ---
Subjective - Date & Time of Evaluation Date of Evaluation: 11/23/16 Time of Evaluation: 09:48 - Subjective Subjective: pt seen and examined at bedside this morning. No acute events overnight. Afebrile. Pt lying in bed comfortably, NAD. Denies pain. No new complaints this morning. Pt denies fever/chills, CP/SOB/palpitations, N/V/D/C, urinary symptoms , numbness/tingling, leg/calf pain. Objective - Vital Signs/Intake and Output Vital Signs (last 24 hours): Temp Pulse Resp BP Pulse Ox 98.1 F 85 18 134/71 100 11/23/16 07:23 11/23/16 07:23 11/23/16 07:23 11/23/16 07:23 11/23/16 07:23 - Medications Medications: Current Medications Amlodipine Besylate (Norvasc) 5 mg PO DAILY [facility] Last Admin: 11/23/16 09:36 Dose: 5 mg Docusate Sodium (Colace) 200 mg PO DAILY PRN PRN Reason: Constipation Last Admin: 11/23/16 09:36 Dose: 200 mg Enoxaparin Sodium (Lovenox) 40 mg SC DAILY [facility] PRN Reason: Protocol Last Admin: 11/23/16 09:36 Dose: 40 mg Vancomycin HCl 1 gm/ Sodium (Chloride) 250 mls @ 166.667 mls/hr IVPB Q12 [facility] Last Admin: 11/23/16 09:35 Dose: 166.667 mls/hr Tramadol HCl (Ultram) 50 mg PO Q6 PRN PRN Reason: Pain, moderate (4-7) - Labs Labs: 11/23/16 06:45 11/23/16 06:45 - Constitutional Appears: Non-toxic, No Acute Distress - Eye Exam Eye Exam: EOMI. absent: Conjunctival injection, Scleral icterus Pupil Exam: PERRL - ENT Exam ENT Exam: Mucous Membranes Moist - Respiratory Exam Respiratory Exam: Clear to Ausculation Bilateral, NORMAL BREATHING PATTERN. absent: Rales, Rhonchi, Wheezes - Cardiovascular Exam Cardiovascular Exam: REGULAR RHYTHM, RRR, +S1, +S2. absent: JVD, Rubs - GI/Abdominal Exam GI & Abdominal Exam: Soft, Normal Bowel Sounds. absent: Tenderness - Extremities Exam Extremities Exam: absent: Pedal Edema, Tenderness Additional comments: RUE: incision site along lateral aspect of thigh erythematous, with two roughly 1.5-2.0cm cysts overlying incision site. Both are fluctuant to palpation. No discharge, nontender, no difference in skin temperature, superficial crusting/ blistering overlying cysts. Right: erythematous, edematous, warm, nontender. No discharge. No fluctuance. stiff ROM. Distal pulses 2+, sensation intact. No calf erythema/edema b/l. Homans negative b/l. - Neurological Exam Neurological Exam: Alert, Awake, CN II-XII Intact Assessment and Plan - Assessment and Plan (Free Text) Assessment: 89 y/o Female with Hx of HTN, Bilateral Hip replacement, and right femur fracture, S/P ORIF distal 1/3 periprosthetic femoral Fx nonunion being admitted for post-operative wound evaluation and treatment. Plan: 1) S/P ORIF Distal 1/3 Periprosthetic femoral Fx nonunion: -r/o post op wound infection/osteomyelitis -Afebrile, CBC WNL -Vancomycin 1 gm Q12/ Zosyn 2.25g Q8H -F/U Vancomycin trough -Pain control PRN -f/u right hip, femur, and knee x rays ( requested by Dr. Ramos) -Right LE Ct scan showed Fluid is suspected superficially fixation device at the lateral distal thigh segment of the distal femur as well as there being a separate patellar bursa effusion and effusions at the medial lateral femoral tibial compartments. Osteomyelitis is not proven or excluded as result throughout this exam but this is particularly true at the distal femur level. -Ortho surgeon, Dr. Ramos was consulted. will F/u rec -ID consulted as per Ortho. will F/U recommendations 2) Essential Hypertension: BP well controlled c/w Amlodipine to 5 mg PO daily Will continue to monitor 3) Azotemia (resolved): secondary to dehydration BUN: 15 on 11/23 Cr: 0.7 will continue to monitor 4) Prophylactic Measures: -CrCl: 56 mL/min -SCDs -Lovenox 40 mg SC daily for DVT -Docusate for constipation
--- NOTE | 2016-11-23 10:12 | RAD ---
PROCEDURE: Right hip x-ray with pelvis two-view HISTORY: pain s/o ORIF COMPARISON: CT scan 11/22/2016, femur x-ray 07/10/2016 TECHNIQUE: Frontal view of the pelvis and frogleg view of the right hip were performed. Diffuse osteopenia is seen. No fracture is identified. No new lytic process is noted. Sacroiliac joints are not widened. 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 No fracture is seen adjacent to the prosthesis of the either hip. Prosthesis appear in normal anatomic position. FINDINGS: See above IMPRESSION: No appreciable acute fracture. No appreciable plain film evidence of loosening or infection at the right hip prosthesis region. Please see CT scan report same day.
--- NOTE | 2016-11-23 10:16 | RAD ---
PROCEDURE: Right Femur Radiographs. HISTORY: pain s/p ORIF COMPARISON: CT scan same day. TECHNIQUE: AP and Lateral Radiographs of the right femur. FINDINGS: FEMUR: There is evidence of right hip replacement and extensive mid to distal right femur surgery. Overall the right hip prosthesis with long medullary salvador component as well as previously noted large cortical screw plate transfixing the mid the distal right femur appear unchanged in position on the images presented. Surgical alfred have been removed. No appreciable new fracture is identified. Extensive postsurgical changes of the distal femur with bone graft material are noted. There is decreased soft tissue postsurgical changes from prior study. SOFT TISSUES: See above OTHER FINDINGS: None. IMPRESSION: No appreciable acute fracture. Status post extensive right hip and femur surgery. Decreased soft tissue postsurgical changes. There does not appear to be interval change in alignment of the prosthesis
--- NOTE | 2016-11-23 10:35 | RAD ---
PROCEDURE: Right Knee Radiographs. HISTORY: S/P ORIF R knee COMPARISON: CT scan performed earlier same day. FINDINGS: BONES: Frontal and lateral views of the right knee were performed. There is been interval removal of surgical alfred from the prior x-ray exam. There is evidence of extensive ORIF of the distal right femur and right knee with multiple cortical screws and screw plate noted. Patella appears in normal location. Diffuse osteopenia is seen. No tibial plateau depression is noted. Moderate degenerative changes of the right knee are seen. JOINTS: Moderate DJD. JOINT EFFUSION: Probable suprapatellar effusion. OTHER FINDINGS: None. IMPRESSION: Status post distal right femoral ORIF with postsurgical changes. Moderate bone graft material seen in the distal femur. DJD and diffuse osteopenia of the right knee. No acute fracture. Please see CT scan report.
--- NOTE | 2016-11-23 11:49 | CP.PCM.CON ---
History of Present Illness - History of Present Illness History of Present Illness: ID: 89 yo female well known to my practice CC: wound blister lateral aspect thigh/restricted ROM R knee and discomfort in region of patell NO DISCOMFORT at the asupracondy;ar fx site and at the distal femoral prostheis ( not done by me) HPI:89 yo female, well known to my practice- presents having been TOTALLY NONCOMPLIANT with post op treatment protocola nd post op f/u PT HAD d/c'ed knee immobilizer against advice. Pt presents at this point with blistering of skin at lateral aspect of incision at mid thigh. There is no evidence for purulent drainage Pt has not been respecting weight bearing admonitions or Brace restrictions. Pt p[resents to ER with complaint referable wound. No real pain at fx dite;complains ofpain and stiffness R knee. Again pt had not followed up in a timely fashion, and totally disrespected weigth bearingadmonitions and brace recommendations No evidence for deep sepsis/pt does present with knee stiffness,and R knee arthrofibropsios Past Patient History - Infectious Disease Hx of Infectious Diseases: None - Past Medical History & Family History Past Medical History?: Yes - Past Social History Alcohol: None Drugs: Denies - CARDIAC Hx Congestive Heart Failure: No Hx Hypercholesterolemia: Yes Hx Hypertension: Yes Hx Peripheral Edema: Yes - PULMONARY Hx Bronchitis: No Hx Chronic Obstructive Pulmonary Disease (COPD): No - NEUROLOGICAL Hx Neurological Disorder: No - HEENT Hx HEENT Problems: Yes Hx Deafness: Yes (slightly [place]) Other/Comment: cataract sx ou - RENAL Hx Chronic Kidney Disease: No - ENDOCRINE/METABOLIC Hx Hypothyroidism: No - HEMATOLOGICAL/ONCOLOGICAL Hx Human Immunodeficiency Virus (HIV): No - INTEGUMENTARY Hx Psoriasis: Yes - MUSCULOSKELETAL/RHEUMATOLOGICAL Hx Arthritis: Yes Hx Fractures: Yes (rt hip/femur) Hx Rheumatoid Arthritis: No - GASTROINTESTINAL Hx Gastrointestinal Disorders: No - GENITOURINARY/GYNECOLOGICAL Hx Genitourinary Disorders: No - PSYCHIATRIC Hx Psychophysiologic Disorder: No Hx Substance Use: No - SURGICAL HISTORY Hx Appendectomy: Yes Hx Cholecystectomy: Yes - ANESTHESIA Hx Anesthesia: Yes Hx Anesthesia Reactions: No Hx Malignant Hyperthermia: No Meds Allergies/Adverse Reactions: Allergies Allergy/AdvReac Type Severity Reaction Status Date / Time No Known Allergies Allergy Verified 11/22/16 11:11 - Medications Medications: Current Medications Amlodipine Besylate (Norvasc) 5 mg PO DAILY [facility] Last Admin: 11/23/16 09:36 Dose: 5 mg Docusate Sodium (Colace) 200 mg PO DAILY PRN PRN Reason: Constipation Last Admin: 11/23/16 09:36 Dose: 200 mg Enoxaparin Sodium (Lovenox) 40 mg SC DAILY [facility] PRN Reason: Protocol Last Admin: 11/23/16 09:36 Dose: 40 mg Vancomycin HCl 1 gm/ Sodium (Chloride) 250 mls @ 166.667 mls/hr IVPB Q12 [facility] Last Admin: 11/23/16 09:35 Dose: 166.667 mls/hr Piperacillin Sod/Tazobactam (Sod 2.25 gm/ Sodium Chloride) 100 mls @ 100 mls/ hr IVPB Q8 [facility] Tramadol HCl (Ultram) 50 mg PO Q6 PRN PRN Reason: Pain, moderate (4-7) Physical Exam - Additional Findings Additional findings: Systemic no evidence for systemic sepsis please refer to aDMITTING h+p FOR SYSTEMIC EXAM Musculoskeletal stance/gait-= defrred pt present with blistering on mid aspect of lateral wound No purulent drainage ; ROM R knee restricted no real discomfort to palpation at fx site R surpracondylar region or midshaft at distal tip of previous Hip Replaceemnt Results - Vital Signs Recent Vital Signs: Last Vital Signs Temp 98.1 F 11/23/16 07:23 Pulse 85 11/23/16 07:23 Resp 18 11/23/16 07:23 BP 134/71 11/23/16 07:23 Pulse Ox 100 11/23/16 07:23 - Labs Result Diagrams: 11/23/16 06:45 11/23/16 06:45 Labs: Laboratory Results - last 24 hr 11/22/16 11/22/16 11/23/16 11:40 11:40 06:45 WBC 8.5 RBC 4.18 Hgb 12.4 Hct 37.2 MCV 89.1 D MCH 29.6 MCHC 33.2 RDW 14.7 H Plt Count 392 D MPV 8.3 Neut % (Auto) 70.6 Lymph % (Auto) 20.0 [place] % (Auto) 7.6 Eos % (Auto) 1.2 Baso % (Auto) 0.6 Neut # 6.0 Lymph # 1.7 [place] # 0.6 Eos # 0.1 Baso # 0.0 Sodium 143 141 Potassium 4.4 4.2 Chloride 104 104 Carbon Dioxide 25 26 Anion Gap 19 15 BUN 21 H 15 Creatinine 0.8 0.7 Est GFR ( Amer) > 60 > 60 Est GFR (Non-Af Amer) > 60 > 60 Random Glucose 91 91 Calcium 9.6 9.2 Total Bilirubin 0.5 AST 19 ALT 12 Alkaline Phosphatase 79 Total Protein 7.9 Albumin 3.9 Globulin 4.1 H Albumin/Globulin Ratio 1.0 11/23/16 06:45 WBC 7.5 RBC 4.02 Hgb 11.5 L Hct 35.8 MCV 89.1 MCH 28.5 MCHC 32.0 L RDW 14.8 H Plt Count 338 MPV Neut % (Auto) Lymph % (Auto) [place] % (Auto) Eos % (Auto) Baso % (Auto) Neut # Lymph # [place] # Eos # Baso # Sodium Potassium Chloride Carbon Dioxide Anion Gap BUN Creatinine Est GFR ( Amer) Est GFR (Non-Af Amer) Random Glucose Calcium Total Bilirubin AST ALT Alkaline Phosphatase Total Protein Albumin Globulin Albumin/Globulin Ratio - Impressions Impression: Xray- reveals displacemet of hardware at proximal aspect of femoral plate/ also.migration of distal stem of prior THR (long stem) Assessment & Plan - Assessment and Plan (Free Text) Assessment: IMAGING A- fluid collection and blistyering lateral aspect of wound(R) displacement OF PROXIMAL ASPECT OF SUPRACONDYLarLATERAL FEMORAL PLATE ( fx approx 80 p cent healed migration opf distal aspect of THR stem P_ recommend knee immobilizer physio 10 pcent weight bearing with walker raised toilet seat knee immobilizer not to be removed physio- stricvt 10 p cent weight bearing with walker Plan: A- Nonunion supracondyalr femur fx - 2nd to pt noncompliance with immobilization and weight bearing restrcitions fluid collection- no evidence for abscess- no evdience for local or sytemic sepsis P- wound care possible aspiration to R/O deep sepsis physio 10 pcent weigth bearing with walker knee immobiloizer applied and NOT TO BE REMOVED wound care consult
--- NOTE | 2016-11-23 12:52 | CP.PCM.CON ---
History of Present Illness - History of Present Illness History of Present Illness: 89 y/o Female with Hx of HTN, Bilateral Hip replacement, and right femur fracture s/p ORIF on Jun, 2015, S/P ORIF distal 1/3 periprosthetic femoral Fx nonunion by Dr. Ramos on Jun, 2016 who presents to ED c/o post-surgical wound evaluation of blister formation to incision site for approximately 1 week. Denies fevers, chills, Cp, SOB, pain in right lower extremity or other complains. Patient reports that she walks with her walker at home, with 20 % weight-bearing of right lower extremity PT HAD d/c'ed knee immobilizer against advice. Pt presents at this point with blistering of skin at lateral aspect of incision at mid thigh. Pt has not been respecting weight bearing admonitions or Brace restrictions. 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 absent: Chills, Fever - EENT Eyes: absent: As Per HPI, Blind Spots, Blurred Vision, Change in Vision, Decreased Night Vision, Diplopia, Discharge, Dry Eye, Exophthalmos, Floaters, Irritation, Itchy Eyes, Loss of Peripheral Vision, Pain, Photophobia, Requires Corrective Lenses, Sees Flashes, Spots in Vision, Tunnel Vision, Other Visual Disturbances, Loss of Vision, Other Ears: absent: As Per HPI, Decreased Hearing, Ear Discharge, Ear Pain, Tinnitus, Abnormal Hearing, Disequilibrium, Dizziness, Other Nose/Mouth/Throat: absent: As Per HPI, Epistaxis, Nasal Congestion, Nasal Discharge, Nasal Obstruction, Nasal Trauma, Nose Pain, Post Nasal Drip, Sinus Pain, Sinus Pressure, Bleeding Gums, Change in Voice, Dental Pain, Dry Mouth, Dysphagia, Halitosis, Hoarsness, Lip Swelling, Mouth Lesions, Mouth Pain, Odynophagia, Sore Throat, Throat Swelling, Tongue Swelling, Facial Pain, Neck Pain, Neck Mass, Other - Breasts Breasts: absent: As Per HPI, Change in Shape, Mass, Pain, Nipple Discharge, Nipple Inversion, Skin Changes, Swelling, Other - Cardiovascular Cardiovascular: absent: As Per HPI, Acrocyanosis, Chest Pain, Chest Pain at Rest , Chest Pain with Activity, Claudication, Diaphoresis, Dyspnea, Dyspnea on Exertion, Edema, Irregular Heart Rhythm, Pain Radiating to Arm/Neck/Jaw, Leg Edema, Leg Ulcers, Lightheadedness, Orthopnea, Palpitations, Paroxysmal Nocturnal Dyspnea, Pedal Edema, Radiating Pain, Rapid Heart Rate, Slow Heart Rate, Syncope, Other - Respiratory Respiratory: absent: As Per HPI, Cough, Dyspnea, Hemoptysis, Dyspnea on Exertion , Wheezing, Snoring, Stridor, Pain on Inspiration, Chest Congestion, Excessive Mucous Production, Change in Mucous Color, Pain with Coughing, Other - Genitourinary Genitourinary: absent: As Per HPI, Change in Urinary Stream, Difficulty Urinating, Dysuria, Flank Pain, Hematuria, Pyuria, Nocturia, Urinary Incontinence, Urinary Frequency, Urinary Hesitance, Urinary Urgency, Voiding Freq/Small Amts, Freq UTI, Hx Renal/Bladder Calculi, Hx /Renal Surgery, Bladder Distension, Other - Reproductive: Female Reproductive:Female: absent: As Per HPI, Amenorrhea, Amenorrhea/ Control, Currently Menstual, Cycle <21 Days, Cycle >35 Days, Cycle Variable, Menses 1-7 Days, Menses >/= 8 Days, Menses Variable, Cycle > 4 Weeks Between, No Menses for 6 Months, Heavy Menses, Light Menses, Normal Menses, Spotting Between Cycles , S/P Hysterectomy, Menopausal, Post Menopausal, Premenarche, Abnormal Vaginal Bleeding, Dysmenorrhea, Dyspareunia, Genital Lesions, Genital Pruritis, Pelvic Pain, Prolapse Symptoms, Sexual Dysfunction, Vaginal Discharge, Vaginal Dryness , Vaginal Odor, Vaginal Pruritis, Other - Menstruation Menstruation: absent: As Per HPI, Amenorrhea, Amenorrhea/ Control, Currently Menstual, Cycle <21 Days, Cycle >35 Days, Cycle Variable, Menses 1-7 Days, Menses >/= 8 Days, Menses Variable, Cycle > 4 Weeks Between, No Menses for 6 Months, Heavy Menses, Light Menses, Normal Menses, Spotting Between Cycles , S/P Hysterectomy, Menopausal, Post Menopausal, Premenarche, Abnormal Vaginal Bleeding, Dysmenorrhea, Other - Musculoskeletal Musculoskeletal: As Per HPI, Abnormal Gait - Integumentary Integumentary: As Per HPI - Neurological Neurological: absent: As Per HPI, Abnormal Gait, Abnormal Hearing, Abnormal Movements, Abnormal Speech, Behavioral Changes, Burning Sensations, Confusion, Convulsions, Disequilibrium, Dizziness, Numbness, Focal Weakness, Frequent Falls , Headaches, Lack of Coordination, Loss of Vision, Memory Loss, Paresthesias, Radicular Pain, Restless Legs, Sensory Deficit, Syncope, Tingling, Tremor, Vertigo, Weakness, Other Visual Disturbances, Other - Psychiatric Psychiatric: absent: As Per HPI, Abnormal Sleep Pattern, Anhedonia, Anxiety, Auditory Hallucinations, Behavioral Changes, Change in Appetite, Change in Libido, Confusion, Depression, Difficulty Concentrating, Hallucinations, Homicidal Ideation, Hopelessness, Irritability, Memory Loss, Mood Swings, Panic Attacks, Paranoia, Suicidal Ideation, Visual Hallucinations, Tactile Hallucinations, Other - Endocrine Endocrine: absent: As Per HPI, Change in Body Appearance, Change in Libido, Cold Intolorance, Deepening of Voice, Excessive Sweating, Fatigue, Flushing, Heat Intolorance, Increase in Ring/Shoe/Hat Size, Palpitations, Polydipsia, Polyphagia, Polyuria, Other - Hematologic/Lymphatic Hematologic: absent: As Per HPI, Easy Bleeding, Easy Bruising, Lymphadenopathy, Other Past Patient History - Infectious Disease Hx of Infectious Diseases: None - Past Medical History & Family History Past Medical History?: Yes - Past Social History Alcohol: None Drugs: Denies - CARDIAC Hx Congestive Heart Failure: No Hx Hypercholesterolemia: Yes Hx Hypertension: Yes Hx Peripheral Edema: Yes - PULMONARY Hx Bronchitis: No Hx Chronic Obstructive Pulmonary Disease (COPD): No - NEUROLOGICAL Hx Neurological Disorder: No - HEENT Hx HEENT Problems: Yes Hx Deafness: Yes (slightly [place]) Other/Comment: cataract sx ou - RENAL Hx Chronic Kidney Disease: No - ENDOCRINE/METABOLIC Hx Hypothyroidism: No - HEMATOLOGICAL/ONCOLOGICAL Hx Human Immunodeficiency Virus (HIV): No - INTEGUMENTARY Hx Psoriasis: Yes - MUSCULOSKELETAL/RHEUMATOLOGICAL Hx Arthritis: Yes Hx Fractures: Yes (rt hip/femur) Hx Rheumatoid Arthritis: No - GASTROINTESTINAL Hx Gastrointestinal Disorders: No - GENITOURINARY/GYNECOLOGICAL Hx Genitourinary Disorders: No - PSYCHIATRIC Hx Psychophysiologic Disorder: No Hx Substance Use: No - SURGICAL HISTORY Hx Appendectomy: Yes Hx Cholecystectomy: Yes - ANESTHESIA Hx Anesthesia: Yes Hx Anesthesia Reactions: No Hx Malignant Hyperthermia: No Meds Allergies/Adverse Reactions: Allergies Allergy/AdvReac Type Severity Reaction Status Date / Time No Known Allergies Allergy Verified 11/22/16 11:11 - Medications Medications: Current Medications Amlodipine Besylate (Norvasc) 5 mg PO DAILY [facility] Last Admin: 11/23/16 09:36 Dose: 5 mg Docusate Sodium (Colace) 200 mg PO DAILY PRN PRN Reason: Constipation Last Admin: 11/23/16 09:36 Dose: 200 mg Enoxaparin Sodium (Lovenox) 40 mg SC DAILY [facility] PRN Reason: Protocol Last Admin: 11/23/16 09:36 Dose: 40 mg Vancomycin HCl 1 gm/ Sodium (Chloride) 250 mls @ 166.667 mls/hr IVPB Q12 [facility] Last Admin: 11/23/16 09:35 Dose: 166.667 mls/hr Piperacillin Sod/Tazobactam (Sod 2.25 gm/ Sodium Chloride) 100 mls @ 100 mls/ hr IVPB Q8 [facility] Last Admin: 11/23/16 12:29 Dose: 100 mls/hr Tramadol HCl (Ultram) 50 mg PO Q6 PRN PRN Reason: Pain, moderate (4-7) Physical Exam - Constitutional Appears: Non-toxic, Chronically Ill - Head Exam Head Exam: ATRAUMATIC, NORMAL INSPECTION, NORMOCEPHALIC - Eye Exam Eye Exam: EOMI, PERRL. absent: Scleral icterus - ENT Exam ENT Exam: Mucous Membranes Dry, Normal External Ear Exam - Neck Exam Neck exam: Negative for: Lymphadenopathy, Thyromegaly - Respiratory Exam Respiratory Exam: Decreased Breath Sounds, Clear to Auscultation Bilateral - Cardiovascular Exam Cardiovascular Exam: REGULAR RHYTHM, +S1, +S2 - GI/Abdominal Exam GI & Abdominal Exam: Diminished Bowel Sounds, Distended, Soft. absent: Organomegaly, Pulsatile Mass, Rebound, Tenderness - Rectal Exam Rectal Exam: Deferred - Exam Exam: NORMAL INSPECTION - Extremities Exam Extremities exam: Positive for: pedal edema, pedal pulses present. Negative for : calf tenderness, normal inspection, tenderness Additional comments: rotation right lower extrem with shortening swelling with fluid filled area near midpoint of incision site to right femur - no pus - Back Exam Back exam: absent: CVA tenderness (L), CVA tenderness (R) - Neurological Exam Neurological exam: Abnormal Gait, Alert, CN II-XII Intact, Oriented x3, Reflexes Normal - Psychiatric Exam Psychiatric exam: Normal Affect, Normal Mood - Skin Skin Exam: Dry, Intact Results - Vital Signs Recent Vital Signs: Last Vital Signs Temp 98.1 F 11/23/16 07:23 Pulse 85 11/23/16 07:23 Resp 18 11/23/16 07:23 BP 134/71 11/23/16 07:23 Pulse Ox 100 11/23/16 07:23 - Labs Result Diagrams: 11/23/16 06:45 11/23/16 06:45 Labs: Laboratory Results - last 24 hr 11/23/16 11/23/16 06:45 06:45 WBC 7.5 RBC 4.02 Hgb 11.5 L Hct 35.8 MCV 89.1 MCH 28.5 MCHC 32.0 L RDW 14.8 H Plt Count 338 Sodium 141 Potassium 4.2 Chloride 104 Carbon Dioxide 26 Anion Gap 15 BUN 15 Creatinine 0.7 Est GFR ( Amer) > 60 Est GFR (Non-Af Amer) > 60 Random Glucose 91 Calcium 9.2 Assessment & Plan (1) Femur fracture, right Status: Acute Priority: High (2) Inability to ambulate due to hip Status: Acute (3) Right femoral shaft fracture Status: Acute (4) Closed fracture of lower end of right femur Status: Resolved Priority: Medium - Assessment and Plan (Free Text) Assessment: unclear if infection is present pt noncompoliant with follow up and weight bearing and may have injured hip refusing any surgical intervention at this time IV antibiotcs stared empirically - may need 6-8 weeks with non weightbearing
--- NOTE | 2016-11-23 13:43 | CP.PCM.CON ---
History of Present Illness - History of Present Illness History of Present Illness: THE PATIENT IS AN 89 YEAR OLD FEMALE WHO HAD A FRACTURE OF THE RIGHT FEMUR JUNE OF 1015 AND SHE HAD SURGERY AGAIN IN JUNE 2016 FOR NON-UNION OF THE FRACTURE FOLLOWED BY REH[facility]. SHE NOW CAME IN WITH WOUND SITE FLUID COLLECTION AND BLISTERING AND WAS ADMITTED FOR EVALUATION AND TREATMENT FOR A POSSIBLE INFECTION. SHE DENIES FEVERS OR CHILLS. SHE ALSO HAS A HISTORY OF HYPERTENSION AND HYPERLIPIDEMIA. CARDIOLOGY WAS ASKED TO FOLLOW HER. SHE DENIES CHEST PAIN OR SOB. Past Patient History - Infectious Disease Hx of Infectious Diseases: None - Past Medical History & Family History Past Medical History?: Yes - Past Social History Alcohol: None Drugs: Denies - CARDIAC Hx Congestive Heart Failure: No Hx Hypercholesterolemia: Yes Hx Hypertension: Yes Hx Peripheral Edema: Yes - PULMONARY Hx Bronchitis: No Hx Chronic Obstructive Pulmonary Disease (COPD): No - NEUROLOGICAL Hx Neurological Disorder: No - HEENT Hx HEENT Problems: Yes Hx Deafness: Yes (slightly [id number]) Other/Comment: cataract sx ou - RENAL Hx Chronic Kidney Disease: No - ENDOCRINE/METABOLIC Hx Hypothyroidism: No - HEMATOLOGICAL/ONCOLOGICAL Hx Human Immunodeficiency Virus (HIV): No - INTEGUMENTARY Hx Psoriasis: Yes - MUSCULOSKELETAL/RHEUMATOLOGICAL Hx Arthritis: Yes Hx Fractures: Yes (rt hip/femur) Hx Rheumatoid Arthritis: No - GASTROINTESTINAL Hx Gastrointestinal Disorders: No - GENITOURINARY/GYNECOLOGICAL Hx Genitourinary Disorders: No - PSYCHIATRIC Hx Psychophysiologic Disorder: No Hx Substance Use: No - SURGICAL HISTORY Hx Appendectomy: Yes Hx Cholecystectomy: Yes - ANESTHESIA Hx Anesthesia: Yes Hx Anesthesia Reactions: No Hx Malignant Hyperthermia: No Meds Allergies/Adverse Reactions: Allergies Allergy/AdvReac Type Severity Reaction Status Date / Time No Known Allergies Allergy Verified 11/22/16 11:11 - Medications Medications: Current Medications Amlodipine Besylate (Norvasc) 5 mg PO DAILY [facility] Last Admin: 11/23/16 09:36 Dose: 5 mg Docusate Sodium (Colace) 200 mg PO DAILY PRN PRN Reason: Constipation Last Admin: 11/23/16 09:36 Dose: 200 mg Enoxaparin Sodium (Lovenox) 40 mg SC DAILY [facility] PRN Reason: Protocol Last Admin: 11/23/16 09:36 Dose: 40 mg Vancomycin HCl 1 gm/ Sodium (Chloride) 250 mls @ 166.667 mls/hr IVPB Q12 [facility] Last Admin: 11/23/16 09:35 Dose: 166.667 mls/hr Cefepime HCl 1 gm/ Sodium (Chloride) 100 mls @ 100 mls/hr IVPB Q8 [facility] Tramadol HCl (Ultram) 50 mg PO Q6 PRN PRN Reason: Pain, moderate (4-7) Physical Exam - Respiratory Exam Respiratory Exam: Clear to Auscultation Bilateral - Cardiovascular Exam Cardiovascular Exam: REGULAR RHYTHM, +S1, +S2 - Extremities Exam Additional comments: RIGHT LATERAL FEMORAL INCISION AREA WITH FLUID COLLECTION AND BLISTERING - Additional Findings Additional findings: ID AND ORTHO NOTES REVIEWED LOWER EXTREM CT REPORT NOTED Results - Vital Signs Recent Vital Signs: Last Vital Signs Temp 98.1 F 11/23/16 07:23 Pulse 85 11/23/16 07:23 Resp 18 11/23/16 07:23 BP 134/71 11/23/16 07:23 Pulse Ox 100 11/23/16 07:23 - Labs Result Diagrams: 11/26/16 05:25 11/26/16 05:25 Labs: Laboratory Results - last 24 hr 11/23/16 11/23/16 06:45 06:45 WBC 7.5 RBC 4.02 Hgb 11.5 L Hct 35.8 MCV 89.1 MCH 28.5 MCHC 32.0 L RDW 14.8 H Plt Count 338 Sodium 141 Potassium 4.2 Chloride 104 Carbon Dioxide 26 Anion Gap 15 BUN 15 Creatinine 0.7 Est GFR ( Amer) > 60 Est GFR (Non-Af Amer) > 60 Random Glucose 91 Calcium 9.2 Assessment & Plan - Assessment and Plan (Free Text) Assessment: RIGHT FEMORAL FRACTURE SURGICAL SCAR WITH FLUID COLLECTION AND BLISTERING HYPERTENSION HYPERLIPIDEMIA Plan: CONTINUE AMLODIPINE, LOVENOX AND ANTIBIOTICS EKG LIPID PROFILE IN AM
[2016-11-23] MEDS: Cefepime 1 GM in Sodium Chloride 0.9% 100 ML IVPB SCH (16:07)
[2016-11-24] MEDS: Cefepime 1 GM in Sodium Chloride 0.9% 100 ML IVPB SCH ×3 (00:17→16:14)
[2016-11-24 06:33] LABS: HEMATOCRIT 33.3 % (34.0-47.0); MEAN CELL VOLUME 88.7 fl (81.0-99.0); MEAN CORPUSCULAR HEMOGLOBIN 29.3 pg (27.0-31.0); MEAN CORPUSCULAR HGB CONC 33.1 g/dL (33.0-37.0); RED CELL DISTRIBUTION WIDTH 14.8 % (11.5-14.5); WHITE BLOOD COUNT 7.6 K/uL (4.8-10.8)
[2016-11-24 06:37] LABS: ALB/GLOB RATIO 0.9 (1.0-2.1); ALKALINE PHOSPHATASE 62 U/L (38-126); ALT/SGPT 18 U/L (9-52); AST/SGOT 16 U/L (14-36); BILIRUBIN,TOTAL 0.5 mg/dl (0.2-1.3); BLOOD UREA NITROGEN 15 mg/dl (7-17); CALCIUM 9.1 mg/dL (8.4-10.2); CARBON DIOXIDE 26 mmol/L (22-30); CHLORIDE 104 mmol/L (98-107); CHOLESTEROL 132 mg/dL (0-199); GFR AFRICAN-AMERICAN > 60; GLUCOSE,RANDOM 95 mg/dL (65-105); POTASSIUM 4.2 MMOL/L (3.6-5.0); SODIUM 141 mmol/l (132-148); TOTAL PROTEIN 6.5 G/DL (6.3-8.2)
--- NOTE | 2016-11-24 08:13 | CARD ---
APPROVED REPORT EKG Measurement Heart [id number] <Conclusion> Sinus rhythm Left axis deviation
[2016-11-24] MEDS: Enoxaparin 40 mg Syringe SC SCH (08:19)
--- NOTE | 2016-11-24 09:05 | CP.PCM.PN ---
Subjective - Date & Time of Evaluation Date of Evaluation: 11/24/16 Time of Evaluation: 09:03 - Subjective Subjective: pt seen and examined at bedside this morning. No acute events overnight. Afebrile. Lying in bed comfortably, NAD. Pt denies new complaints this morning. Denies mild knee discomfort and stiffness unchanged since admission. Tolerating PO intake w/o difficulty. Seen by Ortho and ID Thursday 11/23. Denies fever/chills , headaches, changes in vision, CP/SOB/Palpitations, N/V/D/C, urinary symptoms, calf pain. Objective - Vital Signs/Intake and Output Vital Signs (last 24 hours): Temp Pulse Resp BP Pulse Ox 98.4 F 77 18 145/76 95 11/24/16 07:26 11/24/16 08:18 11/24/16 07:26 11/24/16 08:18 11/24/16 07:26 - Medications Medications: Current Medications Amlodipine Besylate (Norvasc) 5 mg PO DAILY [facility] Last Admin: 11/24/16 08:18 Dose: 5 mg Docusate Sodium (Colace) 200 mg PO DAILY PRN PRN Reason: Constipation Last Admin: 11/24/16 08:22 Dose: 200 mg Enoxaparin Sodium (Lovenox) 40 mg SC DAILY [facility] PRN Reason: Protocol Last Admin: 11/24/16 08:19 Dose: 40 mg Vancomycin HCl 1 gm/ Sodium (Chloride) 250 mls @ 166.667 mls/hr IVPB Q12 [facility] Last Admin: 11/24/16 08:23 Dose: 166.667 mls/hr Cefepime HCl 1 gm/ Sodium (Chloride) 100 mls @ 100 mls/hr IVPB Q8 [facility] Last Admin: 11/24/16 08:20 Dose: 100 mls/hr Tramadol HCl (Ultram) 50 mg PO Q6 PRN PRN Reason: Pain, moderate (4-7) - Labs Labs: 11/24/16 05:15 11/24/16 05:15 - Constitutional Appears: Non-toxic, No Acute Distress - Eye Exam Eye Exam: EOMI. absent: Conjunctival injection Pupil Exam: PERRL - ENT Exam ENT Exam: Mucous Membranes Moist - Respiratory Exam Respiratory Exam: Clear to Ausculation Bilateral, NORMAL BREATHING PATTERN. absent: Rales, Rhonchi, Wheezes - Cardiovascular Exam Cardiovascular Exam: REGULAR RHYTHM, RRR, +S1, +S2. absent: Gallop, JVD, Rubs, Murmur - GI/Abdominal Exam GI & Abdominal Exam: Soft, Normal Bowel Sounds. absent: Tenderness - Extremities Exam Extremities Exam: Joint Swelling (Right knee edema). absent: Calf Tenderness, Full ROM, Normal Inspection, Pedal Edema, Tenderness Additional comments: RIGHT KNEE: edematous, erythematous, nontender to palpation, decreased ROM. Non- fluctuant. No discharge appreciated. RIGHT THIGH: two cysts overlying incision site approx 1.5-2cm in diameter, fluctuant, nontender, mild erythema, no discharge, superifical crusting overlying cysts. 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 Ramos) -Right LE Ct scan showed Fluid is suspected superficially fixation device at the lateral distal thigh segment of the distal femur as well as there being a separate patellar bursa effusion and effusions at the medial lateral femoral tibial compartments. Osteomyelitis is not proven or excluded as result throughout this exam but this is particularly true at the distal femur level. -Ortho surgeon, Dr. Ramos recommends: possible aspiration to R/O deep sepsis, physio 10% weight bearing with walker knee immobilizer, and wound care consult. -ID consulted: started on IV Rocephin 1gm QD (day 1), as well as Ceretec scan and CT to evaluate for osteo. 2) Essential Hypertension: BP well controlled c/w Amlodipine to 5 mg PO daily Will continue to monitor 3) Azotemia (resolved): secondary to dehydration BUN: 15 on 11/23 Cr: 0.7 will continue to monitor 4) Prophylactic Measures: -CrCl: 56 mL/min -SCDs -Lovenox 40 mg SC daily for DVT -Docusate for constipation
--- NOTE | 2016-11-24 11:04 | CP.PCM.PN ---
Subjective - Date & Time of Evaluation Date of Evaluation: 11/24/16 Time of Evaluation: 09:00 - Subjective Subjective: discussed on rounds for CT and ceretec scan Objective - Vital Signs/Intake and Output Vital Signs (last 24 hours): Temp Pulse Resp BP Pulse Ox 98.4 F 77 18 145/76 95 11/24/16 07:26 11/24/16 08:18 11/24/16 07:26 11/24/16 08:18 11/24/16 07:26 - Medications Medications: Current Medications Amlodipine Besylate (Norvasc) 5 mg PO DAILY [facility] Last Admin: 11/24/16 08:18 Dose: 5 mg Docusate Sodium (Colace) 200 mg PO DAILY PRN PRN Reason: Constipation Last Admin: 11/24/16 08:22 Dose: 200 mg Enoxaparin Sodium (Lovenox) 40 mg SC DAILY [facility] PRN Reason: Protocol Last Admin: 11/24/16 08:19 Dose: 40 mg Vancomycin HCl 1 gm/ Sodium (Chloride) 250 mls @ 166.667 mls/hr IVPB Q12 [facility] Last Admin: 11/24/16 08:23 Dose: 166.667 mls/hr Cefepime HCl 1 gm/ Sodium (Chloride) 100 mls @ 100 mls/hr IVPB Q8 [facility] Last Admin: 11/24/16 08:20 Dose: 100 mls/hr Tramadol HCl (Ultram) 50 mg PO Q6 PRN PRN Reason: Pain, moderate (4-7) - Labs Labs: 11/24/16 05:15 11/24/16 05:15 - Constitutional Appears: Non-toxic - Head Exam Head Exam: NORMOCEPHALIC - Eye Exam Eye Exam: PERRL - ENT Exam ENT Exam: Mucous Membranes Dry - Neck Exam Neck Exam: absent: Lymphadenopathy - Respiratory Exam Respiratory Exam: Decreased Breath Sounds - Cardiovascular Exam Cardiovascular Exam: REGULAR RHYTHM - GI/Abdominal Exam GI & Abdominal Exam: Distended Assessment and Plan (1) Femur fracture, right Status: Acute (2) Inability to ambulate due to hip Status: Acute (3) Right femoral shaft fracture Status: Acute (4) Closed fracture of lower end of right femur Status: Resolved
--- NOTE | 2016-11-24 11:49 | CP.PCM.PN ---
Subjective - Date & Time of Evaluation Date of Evaluation: 11/24/16 Time of Evaluation: 10:00 - Subjective Subjective: NO NEW COMPLAINTS Objective - Vital Signs/Intake and Output Vital Signs (last 24 hours): Temp Pulse Resp BP Pulse Ox 98.4 F 77 18 145/76 95 11/24/16 07:26 11/24/16 08:18 11/24/16 07:26 11/24/16 08:18 11/24/16 07:26 - Medications Medications: Current Medications Amlodipine Besylate (Norvasc) 5 mg PO DAILY [facility] Last Admin: 11/24/16 08:18 Dose: 5 mg Docusate Sodium (Colace) 200 mg PO DAILY PRN PRN Reason: Constipation Last Admin: 11/24/16 08:22 Dose: 200 mg Enoxaparin Sodium (Lovenox) 40 mg SC DAILY [facility] PRN Reason: Protocol Last Admin: 11/24/16 08:19 Dose: 40 mg Vancomycin HCl 1 gm/ Sodium (Chloride) 250 mls @ 166.667 mls/hr IVPB Q12 [facility] Last Admin: 11/24/16 08:23 Dose: 166.667 mls/hr Cefepime HCl 1 gm/ Sodium (Chloride) 100 mls @ 100 mls/hr IVPB Q8 [facility] Last Admin: 11/24/16 08:20 Dose: 100 mls/hr Tramadol HCl (Ultram) 50 mg PO Q6 PRN PRN Reason: Pain, moderate (4-7) - Labs Labs: 11/24/16 05:15 11/24/16 05:15 - Respiratory Exam Respiratory Exam: Clear to Ausculation Bilateral - Cardiovascular Exam Cardiovascular Exam: REGULAR RHYTHM, +S1, +S2 - Additional Findings Additional findings: ID CONSULT REVIEWED AND IS SPOKEN TO Assessment and Plan - Assessment and Plan (Free Text) Assessment: RIGHT FEMUR FRACTURE WITH MULTIPLE SURGERIES AND NOW WITH NEW WOUND SITE BLISTER AND FLUID COLLECTION HYPERTENSION Plan: CONTINUE AMLODIPINE, LOVENOX AND ANTIBIOTICS
--- NOTE | 2016-11-24 13:27 | PQF GENQUE ---
This form is a permanent part of the medical record 11/24/16 Dr. Dillon, Would you please clarify if there is an associated diagnosis to go along with health and safety advisor findings. If yes was it Present on Admission. PN 11/23/16: Gluteal fold has 2 stage 2 ulcers, 1 cm x 0.2 cm and 0.5 cm x 0.1 cm. She has a fungal infection under the right arm- patient has limited ROM to same. There is also intertrigo under her breasts, abdominal fold and groins. Antifungal cream applied. Clarification of your documentation is requested to better reflect the severity of illness and intensity of treatment of your patient. Indicators present [] Specify: [] Patient has limited mobility due to fracture of R femur s/p ORIF. Patient reports she is mostly bedbound or sitting at all times. Her condition was already present on admission. [] Specify: [] [] Specify: [] [] Specify: [] Location in the medical record that reflects the above clinical findings: [] Treatment Provided: []Wound care nurse consult placed. PHYSICIAN'S RESPONSE Based on your medical judgment of the clinical indicators outlined above please clarify the following: [x] Practitioner response: bedbound, limited mobility secondary to hx of R hip replacement, R femur fracture s/p ORIF [] If unable to determine, please check the box, sign and date. Present On Admission (POA) Indicator: [x] Present at the time of admission [] Not present at the time of admission [] Clinically Undetermined In responding to this query, please exercise your independent professional judgment. The fact that a question is asked does not imply that any particular answer is desired or expected. Thank you for your clarification on this documentation. If you have any questions please call:ext [phone] * Thank you, Nataly Thao RN [facility]
[2016-11-24] MEDS ORDERED: Iohexol 300 100 ML IJ ONE (17:25)
[2016-11-24] MEDS ORDERED: Sodium Chloride 0.9% 50 ML IV ONE (17:25)
[2016-11-25] MEDS: Cefepime 1 GM in Sodium Chloride 0.9% 100 ML IVPB SCH ×3 (01:13→17:59)
[2016-11-25 06:32] LABS: HEMATOCRIT 32.1 % (34.0-47.0); MEAN CELL VOLUME 88.7 fl (81.0-99.0); MEAN CORPUSCULAR HGB CONC 32.7 g/dL (33.0-37.0); RED CELL DISTRIBUTION WIDTH 14.8 % (11.5-14.5); WHITE BLOOD COUNT 7.1 K/uL (4.8-10.8)
[2016-11-25 06:36] LABS: ALB/GLOB RATIO 0.9 (1.0-2.1); ALKALINE PHOSPHATASE 57 U/L (38-126); ALT/SGPT 11 U/L (9-52); AST/SGOT 12 U/L (14-36); BILIRUBIN,TOTAL 0.4 mg/dl (0.2-1.3); BLOOD UREA NITROGEN 14 mg/dl (7-17); CARBON DIOXIDE 26 mmol/L (22-30); CHLORIDE 105 mmol/L (98-107); GFR AFRICAN-AMERICAN > 60; GLUCOSE,RANDOM 91 mg/dL (65-105); POTASSIUM 4.1 MMOL/L (3.6-5.0); SODIUM 140 mmol/l (132-148); TOTAL PROTEIN 6.1 G/DL (6.3-8.2)
--- NOTE | 2016-11-25 09:02 | CP.PCM.PN ---
Subjective - Date & Time of Evaluation Date of Evaluation: 11/25/16 Time of Evaluation: 09:00 - Subjective Subjective: pt seen and examined at bedside this morning. No acute events overnight, Afebrile. Pt lying in bed comfortably, NAD. Tolerating IV Abx w/o issue. Denies pain. Reports feeling better overall. Tolerating PO intake w/o difficulty. CT/ Ceretec scan not done yesterday as pt was sleeping and it was late according to nursing. Labs/vitals reviewed. Denies fever/chills, headaches, changes in vision , CP/SOB/palpitations, N/V/D/C, urinary symptoms, numbness/tingling. Objective - Vital Signs/Intake and Output Vital Signs (last 24 hours): Temp Pulse Resp BP Pulse Ox 97.3 F L 88 20 125/69 99 11/25/16 07:55 11/25/16 07:55 11/25/16 07:55 11/25/16 07:55 11/25/16 07:55 - Medications Medications: Current Medications Amlodipine Besylate (Norvasc) 5 mg PO DAILY [facility] Last Admin: 11/24/16 08:18 Dose: 5 mg Docusate Sodium (Colace) 200 mg PO DAILY PRN PRN Reason: Constipation Last Admin: 11/24/16 08:22 Dose: 200 mg Enoxaparin Sodium (Lovenox) 40 mg SC DAILY [facility] PRN Reason: Protocol Last Admin: 11/24/16 08:19 Dose: 40 mg Vancomycin HCl 1 gm/ Sodium (Chloride) 250 mls @ 166.667 mls/hr IVPB Q12 [facility] Last Admin: 11/24/16 20:57 Dose: 166.667 mls/hr Cefepime HCl 1 gm/ Sodium (Chloride) 100 mls @ 100 mls/hr IVPB Q8 [facility] Last Admin: 11/25/16 01:13 Dose: 100 mls/hr Tramadol HCl (Ultram) 50 mg PO Q6 PRN PRN Reason: Pain, moderate (4-7) - Labs Labs: 11/25/16 05:15 11/25/16 05:15 - Constitutional Appears: Non-toxic, No Acute Distress - Head Exam Head Exam: ATRAUMATIC - Eye Exam Eye Exam: EOMI Pupil Exam: PERRL - ENT Exam ENT Exam: Mucous Membranes Moist - Respiratory Exam Respiratory Exam: Clear to Ausculation Bilateral, NORMAL BREATHING PATTERN. absent: Rales, Rhonchi, Wheezes - Cardiovascular Exam Cardiovascular Exam: REGULAR RHYTHM, RRR, +S1, +S2. absent: Gallop, JVD, Rubs, Murmur - GI/Abdominal Exam GI & Abdominal Exam: Soft, Normal Bowel Sounds. absent: Tenderness - Extremities Exam Extremities Exam: absent: Calf Tenderness, Normal Inspection, Pedal Edema Additional comments: RLE: shortened when compared to left, externally rotated -Right knee edematous, erythematous, nontender, decreased ROM, w/o discharge -right thigh: incision site with clean dressing overlying. Nontender, decreased surrounding erythema pulses 2+ b/l - Back Exam Back Exam: NORMAL INSPECTION - Neurological Exam Neurological Exam: Alert, Awake, CN II-XII Intact, Oriented x3. 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 Plan: 1) S/P ORIF Distal 1/3 Periprosthetic femoral Fx nonunion: (Vanc day 3, Rocephin Day 2) -r/o post op wound infection/osteomyelitis -refusing surgical intervention -Afebrile, CBC WNL -Vancomycin 1 gm Q12 (Day 3) -CRP >15.00 -Vancomycin trough: 15.9 (11/24) -Pain control PRN -Ortho surgeon, Dr. Ramos recommends: possible aspiration to R/O deep sepsis, physio 10% weight bearing with walker knee immobilizer, and wound care consult. -ID consulted: started on IV Rocephin 1gm QD (day 2), as per ID, depending on scan results, pt may need life long palliative ABx. f/u: Ceretec scan and RLE CT to evaluate for osteo. 2) Essential Hypertension: BP well controlled c/w Amlodipine to 5 mg PO daily Will continue to monitor 3) Azotemia (resolved): secondary to dehydration BUN: 14 on 11/25 Cr: 0.7 will continue to monitor 4) Prophylactic Measures: -CrCl: 56 mL/min -SCDs -Lovenox 40 mg SC daily for DVT -Docusate for constipation
[2016-11-25] MEDS: Enoxaparin 40 mg Syringe SC SCH (10:14)
--- NOTE | 2016-11-25 10:33 | CP.PCM.PN ---
Subjective - Date & Time of Evaluation Date of Evaluation: 11/25/16 Time of Evaluation: 09:00 - Subjective Subjective: await ceretec scan pt refusing any surgery if scan confirms infection will need life long palliative antibiotics Objective - Vital Signs/Intake and Output Vital Signs (last 24 hours): Temp Pulse Resp BP Pulse Ox 97.3 F L 88 20 125/69 98 11/25/16 07:55 11/25/16 10:15 11/25/16 07:55 11/25/16 10:15 11/25/16 09:37 - Medications Medications: Current Medications Amlodipine Besylate (Norvasc) 5 mg PO DAILY [facility] Last Admin: 11/25/16 10:15 Dose: 5 mg Docusate Sodium (Colace) 200 mg PO DAILY PRN PRN Reason: Constipation Last Admin: 11/25/16 10:17 Dose: 200 mg Enoxaparin Sodium (Lovenox) 40 mg SC DAILY [facility] PRN Reason: Protocol Last Admin: 11/25/16 10:14 Dose: 40 mg Vancomycin HCl 1 gm/ Sodium (Chloride) 250 mls @ 166.667 mls/hr IVPB Q12 [facility] Last Admin: 11/25/16 10:15 Dose: 166.667 mls/hr Cefepime HCl 1 gm/ Sodium (Chloride) 100 mls @ 100 mls/hr IVPB Q8 [facility] Last Admin: 11/25/16 10:14 Dose: 100 mls/hr Tramadol HCl (Ultram) 50 mg PO Q6 PRN PRN Reason: Pain, moderate (4-7) - Labs Labs: 11/25/16 05:15 11/25/16 05:15 - Constitutional Appears: Non-toxic, Cachectic, Chronically Ill - Head Exam Head Exam: NORMOCEPHALIC - Eye Exam Eye Exam: PERRL - ENT Exam ENT Exam: Mucous Membranes Dry - Neck Exam Neck Exam: absent: Lymphadenopathy - Respiratory Exam Respiratory Exam: Decreased Breath Sounds - Cardiovascular Exam Cardiovascular Exam: REGULAR RHYTHM - GI/Abdominal Exam GI & Abdominal Exam: Distended - Rectal Exam Rectal Exam: Deferred - Exam Exam: NORMAL INSPECTION - Extremities Exam Extremities Exam: absent: Pedal Edema - Back Exam Back Exam: absent: CVA tenderness (L), CVA tenderness (R) - Neurological Exam Neurological Exam: Alert, Awake, Oriented x3 - Psychiatric Exam Psychiatric exam: Normal Mood Assessment and Plan (1) Femur fracture, right Status: Acute (2) Inability to ambulate due to hip Status: Acute (3) Right femoral shaft fracture Status: Acute (4) Closed fracture of lower end of right femur Status: Resolved - Assessment and Plan (Free Text) Assessment: await ceretec scan pt refusing any surgery if scan confirms infection will need life long palliative antibiotics
--- NOTE | 2016-11-25 11:36 | CP.PCM.PN ---
Subjective - Date & Time of Evaluation Date of Evaluation: 11/25/16 Time of Evaluation: 09:30 - Subjective Subjective: NO CHEST PAIN OR SOB Objective - Vital Signs/Intake and Output Vital Signs (last 24 hours): Temp Pulse Resp BP Pulse Ox 97.3 F L 88 20 125/69 98 11/25/16 07:55 11/25/16 10:15 11/25/16 07:55 11/25/16 10:15 11/25/16 09:37 - Medications Medications: Current Medications Amlodipine Besylate (Norvasc) 5 mg PO DAILY [facility] Last Admin: 11/25/16 10:15 Dose: 5 mg Docusate Sodium (Colace) 200 mg PO DAILY PRN PRN Reason: Constipation Last Admin: 11/25/16 10:17 Dose: 200 mg Enoxaparin Sodium (Lovenox) 40 mg SC DAILY [facility] PRN Reason: Protocol Last Admin: 11/25/16 10:14 Dose: 40 mg Vancomycin HCl 1 gm/ Sodium (Chloride) 250 mls @ 166.667 mls/hr IVPB Q12 [facility] Last Admin: 11/25/16 10:15 Dose: 166.667 mls/hr Cefepime HCl 1 gm/ Sodium (Chloride) 100 mls @ 100 mls/hr IVPB Q8 [facility] Last Admin: 11/25/16 10:14 Dose: 100 mls/hr Tramadol HCl (Ultram) 50 mg PO Q6 PRN PRN Reason: Pain, moderate (4-7) - Labs Labs: 11/25/16 05:15 11/25/16 05:15 - Respiratory Exam Respiratory Exam: Clear to Ausculation Bilateral - Cardiovascular Exam Cardiovascular Exam: REGULAR RHYTHM, +S1, +S2 Assessment and Plan - Assessment and Plan (Free Text) Assessment: HYPERTENSION RIGHT FEMUR FRACTURE WITH NON-UNION AND BLISTERING OF WOUND Plan: CONTINUE AMLODIPINE, LOVENOX AND ANTIBIOTICS
[2016-11-26] MEDS: Cefepime 1 GM in Sodium Chloride 0.9% 100 ML IVPB SCH ×3 (00:09→16:40)
[2016-11-26 06:26] LABS: HEMATOCRIT 31.8 % (34.0-47.0)
[2016-11-26 06:48] LABS: ALB/GLOB RATIO 0.9 (1.0-2.1); ALKALINE PHOSPHATASE 58 U/L (38-126); ALT/SGPT 15 U/L (9-52); AST/SGOT 12 U/L (14-36); BILIRUBIN,TOTAL 0.2 mg/dl (0.2-1.3); BLOOD UREA NITROGEN 13 mg/dl (7-17); CALCIUM 8.8 mg/dL (8.4-10.2); CARBON DIOXIDE 23 mmol/L (22-30); CHLORIDE 105 mmol/L (98-107); GFR AFRICAN-AMERICAN > 60; GLUCOSE,RANDOM 92 mg/dL (65-105); SODIUM 139 mmol/l (132-148); TOTAL PROTEIN 6.3 G/DL (6.3-8.2)
--- NOTE | 2016-11-26 07:20 | PQF SKIN ---
This form is a permanent part of the medical record 11/26/16 Dr. Dillon, computer methods analyst has documented in her note of 11/23/16 the following: Gluteal fold has (2) stage 2 ulcers, 1 cm x 0.2 cm and 0.5 cm x 0.1 cm. 1) Would you please clarify under the Physician response if you concur with the operations team leader and clarify the possible etiology of the ulcers and if present on admission. Clarification of your documentation is requested to better reflect the severity of illness and intensity of treatment of your patient. Indicators present [x] Documentation of skin ulcer [] Skin breakdown [] Skin wounds [x] Wound Care consult [] Nursing assessment [x] Mobility decreased [] Poor nutrition [] Other: [] Location in the medical record that reflects the above clinical findings: [] Treatment Provided: [] PHYSICIAN'S RESPONSE Based on your medical judgment of the clinical indicators outlined above, are you treating this patient for a known or suspected: Present On Admission [] Pressure Ulcer [] PVD/PAD associated ulcer [] Diabetic ulcer [] Other, please indicate [] [x] If Unable to Determine, please check the box, sign and date. I personally did not examine the patient's back, patient has significant risk factor for pressure ulcers and those risks were present before admission. She is mostly bedbound. In responding to this query, please exercise your independent professional judgment. The fact that a question is asked does not imply that any particular answer is desired or expected. Thank you for your clarification on this documentation. If you have any questions please call:extension [phone] * Thank you, Nataly Thao RN [facility] Pressure Ulcer Stage Descriptions *if the ulcer deteriorates during the admission/encounter, report the deepest stage of ulceration Stage I: Intact skin with non-blanchable redness of a localized area usually over a bony prominence; darkly pigmented skin may not have visible blanching Stage II: Partial thickness loss of dermis presenting as a shallow open ulcer with a red pink wound bed, without slough - may also present as an intact or open/ruptured serum filled blister Stage III: Full thickness tissue loss; subcutaneous fat may be visible but bone , tendon or muscle are not exposed. Slough may be present but does not obscur the depth of tissue loss - may include undermining and tunneling Stage IV: Full thickness tissue loss with exposed bone, tendon or muscle - slough eschar may be present on some parts of the wound bed; often includes undermining and tunneling Unstageable: Full thickness tissue loss in which the base of the ulcer is convered by slough and/or eschar *if the "unstageable ulcer" is "staged" during the admission/encounter, report the stage Suspected Deep Tissue Injury: Purple or maroon localized area of discolored intact skin or blood filled blister d/t damage of the underlying soft tissue from pressure and/or sheer. The wound may further evolve and become covered by a thin eschar. Evolution may be rapid exposing additional layers of tissue even with optimal treatment.~~~~~~~~~~~~~~~~~~~~~~~~~~~~~~~~~~~~~~~~~~~~~~~~~~~~~~~~~ ~~~~~~~~~~~~~~~~~~~~~~~~~~~~~~~~~~~~~~~~~~~~~~~~~~~~~~~~~~~~~~~~ HAYLEE; 2006 REFERENCE: AUDRA GREGORY
[2016-11-26] MEDS: Enoxaparin 40 mg Syringe SC SCH (08:28)
--- NOTE | 2016-11-26 09:59 | CP.PCM.PN ---
Subjective - Date & Time of Evaluation Date of Evaluation: 11/26/16 Time of Evaluation: 09:55 - Subjective Subjective: pt seen and examined at bedside this morning. No acute events overnight, Afebrile. Pt lying in bed comfortably, NAD. Tolerating IV Abx w/o issue. Denies pain. Reports feeling better overall. Tolerating PO intake w/o difficulty. CT/ Ceretec scan not done yesterday. Difficult stick as per nursing for ceretec scan. IV access obtained. Labs/vitals reviewed. Denies fever/chills, headaches, changes in vision, CP/SOB/palpitations, N/V/D/C, urinary symptoms, numbness/ tingling. Objective - Vital Signs/Intake and Output Vital Signs (last 24 hours): Temp Pulse Resp BP Pulse Ox 97.7 F 77 18 140/73 98 11/26/16 07:35 11/26/16 08:29 11/26/16 07:35 11/26/16 08:29 11/26/16 07:35 - Medications Medications: Current Medications Amlodipine Besylate (Norvasc) 5 mg PO DAILY [facility] Last Admin: 11/26/16 08:29 Dose: 5 mg Docusate Sodium (Colace) 200 mg PO DAILY PRN PRN Reason: Constipation Last Admin: 11/26/16 08:29 Dose: 200 mg Enoxaparin Sodium (Lovenox) 40 mg SC DAILY [facility] PRN Reason: Protocol Last Admin: 11/26/16 08:28 Dose: 40 mg Vancomycin HCl 1 gm/ Sodium (Chloride) 250 mls @ 166.667 mls/hr IVPB Q12 [facility] Last Admin: 11/26/16 08:30 Dose: 166.667 mls/hr Cefepime HCl 1 gm/ Sodium (Chloride) 100 mls @ 100 mls/hr IVPB Q8 [facility] Last Admin: 11/26/16 08:29 Dose: 100 mls/hr Tramadol HCl (Ultram) 50 mg PO Q6 PRN PRN Reason: Pain, moderate (4-7) - Labs Labs: 11/26/16 05:25 11/26/16 05:25 - Constitutional Appears: Non-toxic, No Acute Distress - Head Exam Head Exam: ATRAUMATIC - Eye Exam Eye Exam: EOMI. absent: Conjunctival injection, Scleral icterus Pupil Exam: PERRL - ENT Exam ENT Exam: Mucous Membranes Moist - Respiratory Exam Respiratory Exam: Clear to Ausculation Bilateral. absent: Rales, Rhonchi, Wheezes - Cardiovascular Exam Cardiovascular Exam: REGULAR RHYTHM, +S1, +S2. absent: Gallop, RRR, Rubs, Murmur - GI/Abdominal Exam GI & Abdominal Exam: Soft, Normal Bowel Sounds. absent: Tenderness - Extremities Exam Extremities Exam: Joint Swelling. absent: Calf Tenderness, Normal Inspection, Pedal Edema, Tenderness Additional comments: Right Knee: Edematous, decreased from yesterday, warmer to touch when compared with left knee. Decreased erythema. Limited ROM. Nontender. No discharge, no fluctuance. RUE: external rotation, shorted when compared to left. Nontender, incision site clean, dry, intact. Cysts still present. No discharge. 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 Ramos recommends: possible aspiration to R/O deep sepsis, physio 10% weight bearing with walker knee immobilizer, and wound care consult. -ID consulted: started on IV Rocephin 1gm QD (day 3), as per ID, depending on scan results, pt may need life long palliative ABx. f/u: Ceretec scan and RLE CT to evaluate for osteo. as per ID recommendations 2) Essential Hypertension: BP well controlled c/w Amlodipine to 5 mg PO daily Will continue to monitor 3) Azotemia (resolved): secondary to dehydration BUN: 13 on 11/26 Cr: 0.6 will continue to monitor 4) Prophylactic Measures: -CrCl: 56 mL/min -SCDs -Lovenox 40 mg SC daily for DVT -Docusate for constipation
--- NOTE | 2016-11-26 11:56 | CP.PCM.PN ---
Subjective - Date & Time of Evaluation Date of Evaluation: 11/26/16 Time of Evaluation: 11:00 - Subjective Subjective: NO NEW COMPLAINTS Objective - Vital Signs/Intake and Output Vital Signs (last 24 hours): Temp Pulse Resp BP Pulse Ox 97.7 F 77 18 140/73 98 11/26/16 07:35 11/26/16 08:29 11/26/16 07:35 11/26/16 08:29 11/26/16 07:35 - Medications Medications: Current Medications Amlodipine Besylate (Norvasc) 5 mg PO DAILY [facility] Last Admin: 11/26/16 08:29 Dose: 5 mg Docusate Sodium (Colace) 200 mg PO DAILY PRN PRN Reason: Constipation Last Admin: 11/26/16 08:29 Dose: 200 mg Enoxaparin Sodium (Lovenox) 40 mg SC DAILY [facility] PRN Reason: Protocol Last Admin: 11/26/16 08:28 Dose: 40 mg Vancomycin HCl 1 gm/ Sodium (Chloride) 250 mls @ 166.667 mls/hr IVPB Q12 [facility] Last Admin: 11/26/16 08:30 Dose: 166.667 mls/hr Cefepime HCl 1 gm/ Sodium (Chloride) 100 mls @ 100 mls/hr IVPB Q8 [facility] Last Admin: 11/26/16 08:29 Dose: 100 mls/hr Tramadol HCl (Ultram) 50 mg PO Q6 PRN PRN Reason: Pain, moderate (4-7) - Labs Labs: 11/26/16 05:25 11/26/16 05:25 - Respiratory Exam Respiratory Exam: Clear to Ausculation Bilateral - Cardiovascular Exam Cardiovascular Exam: REGULAR RHYTHM, +S1, +S2 Assessment and Plan - Assessment and Plan (Free Text) Assessment: HYPERTENSION RIGHT FEMUR FRACTURE Plan: CONTINUE AMLODIPINE, ANTIBIOTICS AND LOVENOX
--- NOTE | 2016-11-26 13:48 | CP.PCM.PN ---
Subjective - Date & Time of Evaluation Date of Evaluation: 11/26/16 Time of Evaluation: 10:00 - Subjective Subjective: awaits ceretec scan refusing OR consider palliative care and jail po antibiotics as pt does not want surgery or PICC line Objective - Vital Signs/Intake and Output Vital Signs (last 24 hours): Temp Pulse Resp BP Pulse Ox 97.7 F 77 18 140/73 98 11/26/16 07:35 11/26/16 08:29 11/26/16 07:35 11/26/16 08:29 11/26/16 07:35 - Medications Medications: Current Medications Amlodipine Besylate (Norvasc) 5 mg PO DAILY [facility] Last Admin: 11/26/16 08:29 Dose: 5 mg Docusate Sodium (Colace) 200 mg PO DAILY PRN PRN Reason: Constipation Last Admin: 11/26/16 08:29 Dose: 200 mg Enoxaparin Sodium (Lovenox) 40 mg SC DAILY [facility] PRN Reason: Protocol Last Admin: 11/26/16 08:28 Dose: 40 mg Cefepime HCl 1 gm/ Sodium (Chloride) 100 mls @ 100 mls/hr IVPB Q8 [facility] Last Admin: 11/26/16 08:29 Dose: 100 mls/hr Tramadol HCl (Ultram) 50 mg PO Q6 PRN PRN Reason: Pain, moderate (4-7) - Labs Labs: 11/26/16 05:25 11/26/16 05:25 - Constitutional Appears: Non-toxic, Chronically Ill - Head Exam Head Exam: NORMOCEPHALIC - Eye Exam Eye Exam: PERRL - ENT Exam ENT Exam: Mucous Membranes Dry - Neck Exam Neck Exam: absent: Lymphadenopathy - Respiratory Exam Respiratory Exam: Decreased Breath Sounds - Cardiovascular Exam Cardiovascular Exam: REGULAR RHYTHM - GI/Abdominal Exam GI & Abdominal Exam: Distended Assessment and Plan (1) Femur fracture, right Status: Acute (2) Inability to ambulate due to hip Status: Acute (3) Right femoral shaft fracture Status: Acute - Assessment and Plan (Free Text) Assessment: awaits ceretec scan refusing OR consider palliative care and jail po antibiotics as pt does not want surgery or PICC line
[2016-11-27] MEDS: Cefepime 1 GM in Sodium Chloride 0.9% 100 ML IVPB SCH ×3 (00:27→17:00)
--- NOTE | 2016-11-27 10:35 | CP.PCM.PN ---
Subjective - Date & Time of Evaluation Date of Evaluation: 11/27/16 Time of Evaluation: 10:33 - Subjective Subjective: pt seen and examined at bedside. No acute events overnight. Afebrile. Denies pain. Lying in bed comfortably, NAD. Pt declined PICC line insertion. Ceretec not done. No other complaints. Social situation discussed between attending and daughter in law of pt yesterday. No home help. Objective - Vital Signs/Intake and Output Vital Signs (last 24 hours): Temp Pulse Resp BP Pulse Ox 97.9 F 85 20 149/74 98 11/27/16 08:38 11/27/16 08:59 11/27/16 08:38 11/27/16 08:59 11/27/16 08:38 - Medications Medications: Current Medications Amlodipine Besylate (Norvasc) 5 mg PO DAILY [facility] Last Admin: 11/27/16 08:59 Dose: 5 mg Docusate Sodium (Colace) 200 mg PO DAILY PRN PRN Reason: Constipation Last Admin: 11/27/16 08:56 Dose: 200 mg Enoxaparin Sodium (Lovenox) 40 mg SC DAILY [facility] PRN Reason: Protocol Last Admin: 11/26/16 08:28 Dose: 40 mg Cefepime HCl 1 gm/ Sodium (Chloride) 100 mls @ 100 mls/hr IVPB Q8 [facility] Last Admin: 11/27/16 08:56 Dose: 100 mls/hr Vancomycin HCl 1 gm/ Sodium (Chloride) 250 mls @ 166.667 mls/hr IVPB Q24H [facility] Last Admin: 11/26/16 14:03 Dose: Not Given Tramadol HCl (Ultram) 50 mg PO Q6 PRN PRN Reason: Pain, moderate (4-7) - Labs Labs: 11/26/16 05:25 11/26/16 05:25 - Constitutional Appears: Non-toxic, No Acute Distress - Eye Exam Eye Exam: EOMI - ENT Exam ENT Exam: Mucous Membranes Moist - Respiratory Exam Respiratory Exam: Clear to Ausculation Bilateral, NORMAL BREATHING PATTERN. absent: Rales, Rhonchi, Wheezes - Cardiovascular Exam Cardiovascular Exam: REGULAR RHYTHM, RRR, +S1, +S2. absent: Tachycardia, Diastolic murmur, JVD, Rubs, Murmur - GI/Abdominal Exam GI & Abdominal Exam: Soft, Normal Bowel Sounds. absent: Distended, Firm, Guarding, Rigid, Tenderness - Extremities Exam Extremities Exam: absent: Calf Tenderness, Normal Inspection Additional comments: Right Knee: Edematous, decreased from yesterday, warmer to touch when compared with left knee. Decreased erythema. Limited ROM. Nontender. No discharge, no fluctuance. RUE: external rotation, shorted when compared to left. Nontender, incision site clean, dry, intact. Cysts still present. No discharge. 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 Plan: 1) S/P ORIF Distal 1/3 Periprosthetic femoral Fx nonunion: (Vanc day 5, Rocephin Day 4) -r/o post op wound infection/osteomyelitis -refusing surgical intervention -Afebrile, H/H: 10.4/31.8 -Vancomycin 1 gm Q12 (Day 5) -CRP >15.00 -Vancomycin trough: 19.8 (11/24) -Pain control PRN -PICC line insertion today -Ortho surgeon, Dr. Ramos recommends: possible aspiration to R/O deep sepsis, physio 10% weight bearing with walker knee immobilizer, and wound care consult. -ID consulted: started on IV Rocephin 1gm QD (day 4), as per ID, depending on scan results, pt may need life long palliative ABx. -pt declined PICC insertion/Ceretec scan and RLE CT to evaluate for osteo. Refusing IV Abx treatment at home. 2) Essential Hypertension: BP well controlled c/w Amlodipine to 5 mg PO daily Will continue to monitor 3) Azotemia (resolved): secondary to dehydration BUN: 13 on 11/26 Cr: 0.6 will continue to monitor 4) Prophylactic Measures: -CrCl: 56 mL/min -SCDs -Lovenox 40 mg SC daily for DVT -Docusate for constipation
--- NOTE | 2016-11-27 11:18 | CP.PCM.PN ---
Subjective - Date & Time of Evaluation Date of Evaluation: 11/27/16 Time of Evaluation: 10:15 - Subjective Subjective: NO COMPLAINTS Objective - Vital Signs/Intake and Output Vital Signs (last 24 hours): Temp Pulse Resp BP Pulse Ox 97.9 F 85 20 149/74 98 11/27/16 08:38 11/27/16 08:59 11/27/16 08:38 11/27/16 08:59 11/27/16 08:38 - Medications Medications: Current Medications Amlodipine Besylate (Norvasc) 5 mg PO DAILY [facility] Last Admin: 11/27/16 08:59 Dose: 5 mg Docusate Sodium (Colace) 200 mg PO DAILY PRN PRN Reason: Constipation Last Admin: 11/27/16 08:56 Dose: 200 mg Enoxaparin Sodium (Lovenox) 40 mg SC DAILY [facility] PRN Reason: Protocol Last Admin: 11/26/16 08:28 Dose: 40 mg Cefepime HCl 1 gm/ Sodium (Chloride) 100 mls @ 100 mls/hr IVPB Q8 [facility] Last Admin: 11/27/16 08:56 Dose: 100 mls/hr Vancomycin HCl 1 gm/ Sodium (Chloride) 250 mls @ 166.667 mls/hr IVPB Q24H [facility] Last Admin: 11/26/16 14:03 Dose: Not Given Tramadol HCl (Ultram) 50 mg PO Q6 PRN PRN Reason: Pain, moderate (4-7) - Labs Labs: 11/26/16 05:25 11/26/16 05:25 - Respiratory Exam Respiratory Exam: Clear to Ausculation Bilateral - Cardiovascular Exam Cardiovascular Exam: REGULAR RHYTHM Assessment and Plan - Assessment and Plan (Free Text) Assessment: HYPERTENSION RIGHT FEMUR FRACTURE RT FEMUR INCISION SKIN BLISTER Plan: CONTINUE AMLODIPINE AND ANTIBIOTICS
[2016-11-27] MEDS: Enoxaparin 40 mg Syringe SC SCH (17:00)
[2016-11-28] MEDS: Cefepime 1 GM in Sodium Chloride 0.9% 100 ML IVPB SCH ×2 (00:06→09:27)
[2016-11-28 07:55] VITALS: BP 129/63; PULSE 95; RESP 20; TEMP 97.5; O2SAT 95
[2016-11-28] MEDS: Enoxaparin 40 mg Syringe SC SCH (09:24)
--- NOTE | 2016-11-28 10:37 | CP.PCM.DIS ---
Provider - Provider Date of Admission: 11/22/16 16:03 Attending physician: Lou Dillon MD Time Spent in preparation of Discharge (in minutes): 35 Diagnosis - Discharge Diagnosis (1) Osteomyelitis Status: Acute Hospital Course - Lab Results Lab Results: Micro Results 11/23/16 12:00 Blood Blood Culture - Preliminary NO GROWTH AFTER 4 DAYS 11/23/16 11:30 Blood Blood Culture - Preliminary NO GROWTH AFTER 4 DAYS Most Recent Lab Values WBC 7.1 K/uL (4.8-10.8) 11/25/16 05:15 RBC 3.62 Mil/uL (3.80-5.20) L 11/25/16 05:15 Hgb 10.4 g/dL (12.0-16.0) L 11/26/16 05:25 Hct 31.8 % (34.0-47.0) L 11/26/16 05:25 MCV 88.7 fl (81.0-99.0) 11/25/16 05:15 MCH 29.0 pg (27.0-31.0) 11/25/16 05:15 MCHC 32.7 g/dL (33.0-37.0) L 11/25/16 05:15 RDW 14.8 % (11.5-14.5) H 11/25/16 05:15 Plt Count 327 K/uL (130-400) 11/25/16 05:15 MPV 8.3 fl (7.2-11.7) 11/22/16 11:40 Neut % (Auto) 70.6 % (50.0-75.0) 11/22/16 11:40 Lymph % (Auto) 20.0 % (20.0-40.0) 11/22/16 11:40 [place] % (Auto) 7.6 % (0.0-10.0) 11/22/16 11:40 Eos % (Auto) 1.2 % (0.0-4.0) 11/22/16 11:40 Baso % (Auto) 0.6 % (0.0-2.0) 11/22/16 11:40 Neut # 6.0 K/uL (1.8-7.0) 11/22/16 11:40 Lymph # 1.7 K/uL (1.0-4.3) 11/22/16 11:40 [place] # 0.6 K/uL (0.0-0.8) 11/22/16 11:40 Eos # 0.1 K/uL (0.0-0.7) 11/22/16 11:40 Baso # 0.0 K/uL (0.0-0.2) 11/22/16 11:40 ESR 67 mm/hr (0-30) H 11/24/16 05:15 Sodium 139 mmol/l (132-148) 11/26/16 05:25 Potassium 4.0 MMOL/L (3.6-5.0) 11/26/16 05:25 Chloride 105 mmol/L (98-107) 11/26/16 05:25 Carbon Dioxide 23 mmol/L (22-30) 11/26/16 05:25 Anion Gap 15 (10-20) 11/26/16 05:25 BUN 13 mg/dl (7-17) 11/26/16 05:25 Creatinine 0.6 mg/dL (0.7-1.2) L 11/26/16 05:25 Est GFR ( Amer) > 60 11/26/16 05:25 Est GFR (Non-Af Amer) > 60 11/26/16 05:25 Random Glucose 92 mg/dL (65-105) 11/26/16 05:25 Calcium 8.8 mg/dL (8.4-10.2) 11/26/16 05:25 Total Bilirubin 0.2 mg/dl (0.2-1.3) 11/26/16 05:25 AST 12 U/L (14-36) L 11/26/16 05:25 ALT 15 U/L (9-52) 11/26/16 05:25 Alkaline Phosphatase 58 U/L (38-126) 11/26/16 05:25 C-React Prot High Sens > 15.00 mg/L (1.00-3.00) H 11/24/16 05:15 Total Protein 6.3 G/DL (6.3-8.2) 11/26/16 05:25 Albumin 3.0 g/dL (3.5-5.0) L 11/26/16 05:25 Globulin 3.3 gm/dL (2.2-3.9) 11/26/16 05:25 Albumin/Globulin Ratio 0.9 (1.0-2.1) L 11/26/16 05:25 Triglycerides 97 mg/DL (0-149) 11/24/16 05:15 Cholesterol 132 mg/dL (0-199) 11/24/16 05:15 LDL Cholesterol Direct 91 mg/dL (0-129) 11/24/16 05:15 HDL Cholesterol 21 MG/DL (30-70) L 11/24/16 05:15 Procalcitonin < 0.05 NG/ML (0.19-0.49) L 11/24/16 05:15 Vancomycin Trough 19.8 ug/mL (5.0-10.0) H 11/26/16 08:55 - Hospital Course Hospital Course: pt was admitted for possible wound infection/osteomyelitis s/p femur repair in June 2016. Pt was offered further investgation with imaging and told about the possibility for terminal operations manager IV abx. Pt declined picc line insertion and further imaging was not able to be done. Seen by Ortho and ID. Pt was started on terminal operations manager PO Cipro BID for the next 6 weeks. Declined PT/knee bracing. No other intervetnions performed. Pt was discharged in stable condition after an uneventful hospital stay. Given scripts for homemaker and home PT. MEDS: PO Ciprofloxacin 500mg BID Amlodipine 5mg PO QD (c/w home med, new refill) Discharge Exam - Head Exam Head Exam: ATRAUMATIC, NORMOCEPHALIC - Eye Exam Eye Exam: EOMI Pupil Exam: PERRL - ENT Exam ENT Exam: Mucous Membranes Moist - Respiratory Exam Respiratory Exam: Clear to PA & Lateral, NORMAL BREATHING PATTERN, UNREMARKABLE - Cardiovascular Exam Cardiovascular Exam: REGULAR RHYTHM, RRR, +S1, +S2. absent: Tachycardia, Gallop , JVD, Rubs, Systolic Murmur - GI/Abdominal Exam GI & Abdominal Exam: Normal Bowel Sounds, Soft, Unremarkable. absent: Tenderness - Extremities Exam Additional comments: Right Knee: Edematous, decreased from yesterday, warmer to touch when compared with left knee. Decreased erythema. Limited ROM. Nontender. No discharge, no fluctuance. RUE: external rotation, shorted when compared to left. Nontender, incision site clean, dry, intact. Cysts still present. No discharge. Distal pulses 2+ b/l, sensation intact - Neurological Exam Neurological exam: Alert, CN II-XII Intact, Oriented x3, Reflexes Normal Discharge Plan - Follow Up Plan Condition: STABLE Disposition: HOME/ ROUTINE Instructions: Amlodipine (By mouth), How to Prevent Pressure Ulcers (GEN), Acute Wound Care (DC), Surgical Site Infections (DC) Additional Instructions: follow up with your primary MD in 1 week. Referrals: Roderick Perales MD [Staff Provider] - Roderick Carrasquillo MD [Staff Provider] -
--- NOTE | 2016-11-28 11:11 | CP.PCM.PN ---
Subjective - Date & Time of Evaluation Date of Evaluation: 11/28/16 Time of Evaluation: 09:40 - Subjective Subjective: NO CHEST PAIN OR SOB Objective - Vital Signs/Intake and Output Vital Signs (last 24 hours): Temp Pulse Resp BP Pulse Ox 97.5 F L 95 H 20 129/63 95 11/28/16 07:55 11/28/16 09:25 11/28/16 07:55 11/28/16 09:25 11/28/16 07:55 - Medications Medications: Current Medications Amlodipine Besylate (Norvasc) 5 mg PO DAILY [facility] Last Admin: 11/28/16 09:25 Dose: 5 mg Docusate Sodium (Colace) 200 mg PO DAILY PRN PRN Reason: Constipation Last Admin: 11/28/16 09:24 Dose: 200 mg Enoxaparin Sodium (Lovenox) 40 mg SC DAILY [facility] PRN Reason: Protocol Last Admin: 11/28/16 09:24 Dose: 40 mg Cefepime HCl 1 gm/ Sodium (Chloride) 100 mls @ 100 mls/hr IVPB Q8 [facility] Last Admin: 11/28/16 09:27 Dose: 100 mls/hr Vancomycin HCl 1 gm/ Sodium (Chloride) 250 mls @ 166.667 mls/hr IVPB Q24H [facility] Last Admin: 11/27/16 16:00 Dose: 166.667 mls/hr Ibuprofen (Motrin Tab) 600 mg PO QID PRN PRN Reason: Pain, Mild (1-3) Tramadol HCl (Ultram) 50 mg PO Q6 PRN PRN Reason: Pain, moderate (4-7) Last Admin: 11/28/16 00:13 Dose: 50 mg - Labs Labs: 11/26/16 05:25 11/26/16 05:25 - Respiratory Exam Respiratory Exam: Clear to Ausculation Bilateral - Cardiovascular Exam Cardiovascular Exam: REGULAR RHYTHM, +S1, +S2 Assessment and Plan - Assessment and Plan (Free Text) Assessment: S/P RIGHT FEMUR SURGERIES SKIN BLISTER HYPERTENSION Plan: CONTINUE AMLODIPINE FOR PROBABLE DISCHARGE TODAY
--- NOTE | 2016-11-28 12:54 | CP.PCM.PN ---
Subjective - Date & Time of Evaluation Date of Evaluation: 11/28/16 Time of Evaluation: 09:00 - Subjective Subjective: denies fever or chills refusing OR Objective - Vital Signs/Intake and Output Vital Signs (last 24 hours): Temp Pulse Resp BP Pulse Ox 97.5 F L 95 H 20 129/63 95 11/28/16 07:55 11/28/16 09:25 11/28/16 07:55 11/28/16 09:25 11/28/16 07:55 - Medications Medications: Current Medications Amlodipine Besylate (Norvasc) 5 mg PO DAILY [facility] Last Admin: 11/28/16 09:25 Dose: 5 mg Docusate Sodium (Colace) 200 mg PO DAILY PRN PRN Reason: Constipation Last Admin: 11/28/16 09:24 Dose: 200 mg Enoxaparin Sodium (Lovenox) 40 mg SC DAILY [facility] PRN Reason: Protocol Last Admin: 11/28/16 09:24 Dose: 40 mg Cefepime HCl 1 gm/ Sodium (Chloride) 100 mls @ 100 mls/hr IVPB Q8 [facility] Last Admin: 11/28/16 09:27 Dose: 100 mls/hr Vancomycin HCl 1 gm/ Sodium (Chloride) 250 mls @ 166.667 mls/hr IVPB Q24H [facility] Last Admin: 11/27/16 16:00 Dose: 166.667 mls/hr Ibuprofen (Motrin Tab) 600 mg PO QID PRN PRN Reason: Pain, Mild (1-3) Tramadol HCl (Ultram) 50 mg PO Q6 PRN PRN Reason: Pain, moderate (4-7) Last Admin: 11/28/16 00:13 Dose: 50 mg - Labs Labs: 11/26/16 05:25 11/26/16 05:25 - Constitutional Appears: Non-toxic, Chronically Ill - Head Exam Head Exam: NORMOCEPHALIC - Eye Exam Eye Exam: PERRL - ENT Exam ENT Exam: Mucous Membranes Dry - Neck Exam Neck Exam: absent: Lymphadenopathy - Respiratory Exam Respiratory Exam: Decreased Breath Sounds - Cardiovascular Exam Cardiovascular Exam: REGULAR RHYTHM - GI/Abdominal Exam GI & Abdominal Exam: Distended, Soft - Rectal Exam Rectal Exam: Deferred - Exam Exam: NORMAL INSPECTION - Extremities Exam Extremities Exam: absent: Pedal Edema - Back Exam Back Exam: absent: CVA tenderness (L), CVA tenderness (R) Assessment and Plan (1) Femur fracture, right Status: Acute (2) Inability to ambulate due to hip Status: Acute (3) Right femoral shaft fracture Status: Acute - Assessment and Plan (Free Text) Assessment: d/c on po cipro for 6 weeks followed by low dose cipro for 6 months may need life long rx follow ESR/CRP and clinical response
== END 2016-11-28 13:33 | disposition home health service (06) | DRG 863 ==
LOC: H.ER 10:52 → H.ERHOLD 16:03 → H.MEDSURG1 18:03
PROVIDERS: ADMIT Family Medicine; ATTEND Family Medicine
DX: T81.4XXA Infection following a procedure, initial encounter (principal); M86.9 Osteomyelitis, unspecified; E86.0 Dehydration; S72.451K Displaced supracondylar fracture without intracondylar extension of lower end of right femur, subsequent encounter for closed fracture with nonunion; T84.020A Dislocation of internal right hip prosthesis, initial encounter; I10 Essential (primary) hypertension; M97.01XD Periprosthetic fracture around internal prosthetic right hip joint, subsequent encounter; X58.XXXA Exposure to other specified factors, initial encounter; X58.XXXD Exposure to other specified factors, subsequent encounter; E78.00 Pure hypercholesterolemia, unspecified; E78.5 Hyperlipidemia, unspecified; Z96.643 Presence of artificial hip joint, bilateral; Z91.19 Patient's noncompliance with other medical treatment and regimen; Z53.20 Procedure and treatment not carried out because of patient's decision for unspecified reasons; S70.321A Blister (nonthermal), right thigh, initial encounter; L90.5 Scar conditions and fibrosis of skin